=== PATIENT | female | born 1985 | race Caucasian/White ===

== ENCOUNTER 2018-05-10 14:40 | Emergency (ER) | payer OTHER ==
[2018-05-10] MEDS: DIPHENHYDRAMINE 50 MG CAP PO (15:57)
[2018-05-10] MEDS: TRIMETHOPRIM/SULFAMETHOX (DS) TAB PO (15:57)
[2018-05-10] MEDS: CEPHALEXIN 500 MG CAP PO (15:57)
== END 2018-05-10 16:13 | disposition home or self-care (01) ==
LOC: FTE 14:40
DX: L03.115 Cellulitis of right lower limb (principal); L03.116 Cellulitis of left lower limb; J45.909 Unspecified asthma, uncomplicated
CPT/HCPCS: 99284; Z7502

== ENCOUNTER 2018-07-07 22:22 | Emergency (ER) | payer OTHER ==
[2018-07-07] MEDS: SODIUM CHLORIDE 0.9% 1L BAG IV* (23:22)
[2018-07-07] MEDS: ONDANSETRON 4 MG INJ IV (23:23)
[2018-07-07] MEDS: ACETAMINOPHEN 500 MG TAB PO (23:23)
[2018-07-07 23:30] LABS: ADD MAN DIFF? NO
[2018-07-07 23:32] LABS: BASOPHILS % 0.6 % (0.0-2.0); EOSINOPHILS # 0.3 10^3/ul (0.0-0.5); EOSINOPHILS % 4.7 % (0.0-7.0); HEMATOCRIT 31.4 % (37.0-47.0); HEMOGLOBIN 10.1 g/dl (12.0-16.0); LYMPHOCYTES % 13.9 % (15.0-51.0); MEAN CORPUSCULAR HEMOGLOBIN 29.6 pg (29.0-33.0); MEAN CORPUSCULAR HGB CONC 32.2 g/dl (32.0-37.0); MEAN CORPUSCULAR VOLUME 92.1 fl (82.0-101.0); MEAN PLATELET VOLUME 9.7 fl (7.4-10.4); MONOCYTE # 0.4 10^3/ul (0.3-0.9); MONOCYTES % 5.3 % (0.0-11.0); NEUTROPHIL # 5.2 10^3/ul (1.6-7.5); NEUTROPHILS % 75.2 % (39.0-77.0); NUCLEATED RED BLOOD CELLS% 0.3 /100WBC (0.0-0.0); PLATELET COUNT 469 10^3/UL (140-415); RED BLOOD COUNT 3.41 10^6/ul (4.20-5.40); RED CELL DISTRIBUTION WIDTH 15.8 % (11.5-14.5)
[2018-07-07 23:32] LABS: WHITE BLOOD COUNT 6.9 10^3/ul (4.8-10.8)
[2018-07-07 23:51] LABS: ANION GAP 9 (8-16); BLOOD UREA NITROGEN 9 mg/dl (7-20); CALCIUM 8.6 mg/dl (8.4-10.2); CARBON DIOXIDE 25 mmol/L (21-31); CHLORIDE 109 mmol/L (97-110); CREATININE 0.72 mg/dl (0.44-1.00); GLUCOSE 94 mg/dl (70-220); INR 1.04; POTASSIUM 3.4 mmol/L (3.5-5.1); PROTIME 13.7 Sec (11.9-14.9); PT RATIO 1.1; SODIUM 140 mmol/L (135-144)
[2018-07-07 23:52] LABS: PARTIAL THROMBOPLASTIN TIME 32.6 Sec (23.0-35.0)
[2018-07-08 00:03] LABS: TROPONIN-I 0.028 ng/ml (0.000-0.120)
[2018-07-08 00:47] LABS: ADD UMIC YES; UR ASCORBIC ACID NEGATIVE (NEGATIVE); UR BACTERIA FEW /HPF (NONE SEEN); UR BILIRUBIN (Dip) NEGATIVE (NEGATIVE); UR BLOOD (Dip) NEGATIVE (NEGATIVE); UR CLARITY SLIGHTLY CLOUDY (CLEAR); UR COLOR YELLOW (YELLOW); UR GLUCOSE (Dip) NEGATIVE (NEGATIVE); UR KETONES (Dip) NEGATIVE (NEGATIVE); UR LEUKOCYTE ESTERASE (Dip) TRACE Leu/ul (NEGATIVE); UR NITRITE (Dip) NEGATIVE (NEGATIVE); UR RBC 3 /HPF (0-5); UR SPECIFIC GRAVITY (Dip) 1.018 (1.003-1.030); UR SQUAMOUS EPITHELIAL CELL FEW /HPF (FEW); UR TOTAL PROTEIN (Dip) NEGATIVE (NEGATIVE); UR UROBILINOGEN (Dip) 2+ mg/dL (NEGATIVE); UR WBC 10 /HPF (0-5)
[2018-07-08] MEDS: morphine 4 MG/ML VIAL IV (01:06)
[2018-07-08] MEDS: ONDANSETRON 4 MG INJ IV (01:06)
== END 2018-07-08 01:48 | disposition home or self-care (01) ==
LOC: FTE 07-08 01:48
DX: R11.10 Vomiting, unspecified (principal); R50.9 Fever, unspecified; J45.909 Unspecified asthma, uncomplicated; I10 Essential (primary) hypertension; R00.0 Tachycardia, unspecified
CPT/HCPCS: 36415; 71045; 80048; 81001; 83605; 84484; 84703; 85025; 85610; 85730; 87040; 87086; 87400; 93005; 96374; 96375; 96376; 99285-25

== ENCOUNTER 2018-07-10 16:59 | Emergency (ER) | payer OTHER ==
[2018-07-10 18:05] LABS: ADD MAN DIFF? NO
[2018-07-10 18:09] LABS: BASOPHILS % 0.3 % (0.0-2.0); EOSINOPHILS # 0.3 10^3/ul (0.0-0.5); EOSINOPHILS % 2.7 % (0.0-7.0); HEMATOCRIT 35.2 % (37.0-47.0); HEMOGLOBIN 11.6 g/dl (12.0-16.0); LYMPHOCYTES # 0.8 10^3/ul (0.8-2.9); MEAN CORPUSCULAR HEMOGLOBIN 30.1 pg (29.0-33.0); MEAN CORPUSCULAR VOLUME 91.4 fl (82.0-101.0); MEAN PLATELET VOLUME 9.8 fl (7.4-10.4); MONOCYTE # 0.4 10^3/ul (0.3-0.9); MONOCYTES % 3.8 % (0.0-11.0); NEUTROPHIL # 9.4 10^3/ul (1.6-7.5); NEUTROPHILS % 85.9 % (39.0-77.0); NUCLEATED RED BLOOD CELLS% 0.2 /100WBC (0.0-0.0); PLATELET COUNT 459 10^3/UL (140-415); RED BLOOD COUNT 3.85 10^6/ul (4.20-5.40); RED CELL DISTRIBUTION WIDTH 15.9 % (11.5-14.5)
[2018-07-10 18:09] LABS: WHITE BLOOD COUNT 10.9 10^3/ul (4.8-10.8)
[2018-07-10] MEDS: ONDANSETRON 4 MG INJ IV (18:12)
[2018-07-10] MEDS: SOD CHLORIDE 0.9% 1,000 ML IV (18:12)
[2018-07-10] MEDS: KETOROLAC 30 MG INJ IV (18:12)
[2018-07-10] MEDS: ACETAMINOPHEN 325 MG TAB PO (18:12)
[2018-07-10 18:14] LABS: ADD UMIC YES; UR ASCORBIC ACID NEGATIVE (NEGATIVE); UR BACTERIA FEW /HPF (NONE SEEN); UR BILIRUBIN (Dip) NEGATIVE (NEGATIVE); UR BLOOD (Dip) 1+ mg/dL (NEGATIVE); UR CLARITY SLIGHTLY CLOUDY (CLEAR); UR COLOR YELLOW (YELLOW); UR GLUCOSE (Dip) NEGATIVE (NEGATIVE); UR KETONES (Dip) 1+ mg/dL (NEGATIVE); UR LEUKOCYTE ESTERASE (Dip) TRACE Leu/ul (NEGATIVE); UR MUCUS FEW /HPF (NONE SEEN); UR NITRITE (Dip) NEGATIVE (NEGATIVE); UR RBC 6 /HPF (0-5); UR SQUAMOUS EPITHELIAL CELL FEW /HPF (FEW); UR TOTAL PROTEIN (Dip) 1+ mg/dl (NEGATIVE); UR UROBILINOGEN (Dip) NEGATIVE (NEGATIVE); UR WBC 5 /HPF (0-5)
[2018-07-10 18:30] LABS: LACTIC ACID 1.4 mmol/L (0.5-2.0)
[2018-07-10 18:30] LABS: ALANINE AMINOTRANSFERASE 29 IU/L (13-69); ALBUMIN 3.1 g/dl (3.3-4.9); ALBUMIN/GLOBULIN RATIO 0.72; ALKALINE PHOSPHATASE 138 IU/L (42-121); ANION GAP 13 (8-16); ASPARTATE AMINO TRANSFERASE 35 IU/L (15-46); BILIRUBIN,INDIRECT 0.7 mg/dl (0-1.1); BILIRUBIN,TOTAL 0.7 mg/dl (0.2-1.3); BLOOD UREA NITROGEN 10 mg/dl (7-20); CALCIUM 9.4 mg/dl (8.4-10.2); CARBON DIOXIDE 22 mmol/L (21-31); CHLORIDE 110 mmol/L (97-110); CREATININE 0.61 mg/dl (0.44-1.00); GLUCOSE 95 mg/dl (70-220); LIPASE 45 U/L (23-300); POTASSIUM 4.1 mmol/L (3.5-5.1); SODIUM 141 mmol/L (135-144); TOTAL PROTEIN 7.4 g/dl (6.1-8.1)
== END 2018-07-10 19:40 | disposition home or self-care (01) ==
LOC: FTE 16:59
DX: R19.7 Diarrhea, unspecified (principal); R11.2 Nausea with vomiting, unspecified; J45.909 Unspecified asthma, uncomplicated; R50.9 Fever, unspecified
CPT/HCPCS: 36415; 80053; 81001; 81025; 83605; 83690; 85025; 87086; 96361; 96374; 96375; 99284-25

== ENCOUNTER 2018-07-26 20:57 | Emergency (ER) | payer OTHER ==
[2018-07-26] MEDS: KETOROLAC 60 MG INJ IM (22:43)
== END 2018-07-26 23:57 | disposition home or self-care (01) ==
LOC: FTE 23:57
DX: M25.571 Pain in right ankle and joints of right foot (principal); M25.572 Pain in left ankle and joints of left foot; M25.561 Pain in right knee; M25.562 Pain in left knee; J45.909 Unspecified asthma, uncomplicated
CPT/HCPCS: 81025; 96372; 99284-25

== ENCOUNTER 2018-09-17 18:47 | Emergency (ER) | payer OTHER ==
[2018-09-17] MEDS: SOD CHLORIDE 0.9% 1,000 ML IV (20:36)
[2018-09-17] MEDS: ONDANSETRON 4 MG INJ IV (20:36)
[2018-09-17] MEDS: ACETAMINOPHEN 500 MG TAB PO (20:36)
[2018-09-17] MEDS: KETOROLAC 30 MG INJ IV (20:46)
[2018-09-17 20:56] LABS: ADD MAN DIFF? NO
[2018-09-17 20:58] LABS: WHITE BLOOD COUNT 14.3 10^3/ul (4.8-10.8)
[2018-09-17 20:58] LABS: ABNORMAL IP MESSAGE 1; BASOPHIL # 0.1 10^3/ul (0.0-0.1); BASOPHILS % 0.4 % (0.0-2.0); EOSINOPHILS # 0.2 10^3/ul (0.0-0.5); EOSINOPHILS % 1.5 % (0.0-7.0); HEMATOCRIT 32.5 % (37.0-47.0); HEMOGLOBIN 9.5 g/dl (12.0-16.0); LYMPHOCYTES # 1.4 10^3/ul (0.8-2.9); LYMPHOCYTES % 9.9 % (15.0-51.0); MEAN CORPUSCULAR HEMOGLOBIN 25.5 pg (29.0-33.0); MEAN CORPUSCULAR HGB CONC 29.2 g/dl (32.0-37.0); MEAN CORPUSCULAR VOLUME 87.1 fl (82.0-101.0); MEAN PLATELET VOLUME 9.4 fl (7.4-10.4); MONOCYTE # 0.9 10^3/ul (0.3-0.9); MONOCYTES % 6.4 % (0.0-11.0); NEUTROPHIL # 11.6 10^3/ul (1.6-7.5); NEUTROPHILS % 81.4 % (39.0-77.0); NUCLEATED RED BLOOD CELLS% 0.3 /100WBC (0.0-0.0); PLATELET COUNT 531 10^3/UL (140-415); RED BLOOD COUNT 3.73 10^6/ul (4.20-5.40); RED CELL DISTRIBUTION WIDTH 22.4 % (11.5-14.5)
[2018-09-17 21:08] LABS: ADD UMIC YES; UR ASCORBIC ACID NEGATIVE (NEGATIVE); UR BACTERIA FEW /HPF (NONE SEEN); UR BILIRUBIN (Dip) NEGATIVE (NEGATIVE); UR BLOOD (Dip) 1+ mg/dL (NEGATIVE); UR CLARITY SLIGHTLY CLOUDY (CLEAR); UR COLOR YELLOW (YELLOW); UR GLUCOSE (Dip) NEGATIVE (NEGATIVE); UR KETONES (Dip) NEGATIVE (NEGATIVE); UR LEUKOCYTE ESTERASE (Dip) TRACE Leu/ul (NEGATIVE); UR MUCUS MODERATE /HPF (NONE SEEN); UR NITRITE (Dip) NEGATIVE (NEGATIVE); UR RBC 8 /HPF (0-5); UR SPECIFIC GRAVITY (Dip) 1.017 (1.003-1.030); UR SQUAMOUS EPITHELIAL CELL FEW /HPF (FEW); UR TOTAL PROTEIN (Dip) 1+ mg/dl (NEGATIVE); UR UROBILINOGEN (Dip) 1+ mg/dL (NEGATIVE); UR WBC 8 /HPF (0-5)
[2018-09-17 21:11] LABS: POSITIVE DIFF @See below
[2018-09-17 21:18] LABS: LACTIC ACID 1.4 mmol/L (0.5-2.0)
[2018-09-17 21:19] LABS: ALANINE AMINOTRANSFERASE 23 IU/L (13-69); ALBUMIN 3.5 g/dl (3.3-4.9); ALBUMIN/GLOBULIN RATIO 0.85; ALKALINE PHOSPHATASE 112 IU/L (42-121); ANION GAP 9 (5-13); ASPARTATE AMINO TRANSFERASE 27 IU/L (15-46); BLOOD UREA NITROGEN 8 mg/dl (7-20); CALCIUM 9.3 mg/dl (8.4-10.2); CARBON DIOXIDE 24 mmol/L (21-31); CHLORIDE 105 mmol/L (97-110); CREATININE 0.64 mg/dl (0.44-1.00); Estimated GFR > 60 mL/min (>60); GLUCOSE 106 mg/dl (70-220); LIPASE 26 U/L (23-300); POTASSIUM 4.1 mmol/L (3.5-5.1); SODIUM 138 mmol/L (135-144); TOTAL PROTEIN 7.6 g/dl (6.1-8.1)
[2018-09-17] MEDS: morphine 4 MG/ML VIAL IV (22:17)
[2018-09-17] MEDS: DEXAMETHASONE 10 MG/ML 1 ML INJ IV (22:43)
[2018-09-17] MEDS: DEXAMETHASONE 10 MG/ML 1 ML INJ IM (22:55)
== END 2018-09-17 23:07 | disposition home or self-care (01) ==
LOC: FTE 18:47
DX: B34.9 Viral infection, unspecified (principal); J45.909 Unspecified asthma, uncomplicated
CPT/HCPCS: 36415; 80053; 81001; 81025; 83605; 83690; 85025; 87400; 96361; 96374; 96375; 99284-25

== ENCOUNTER 2018-11-23 14:22 | Emergency (ER) | payer OTHER ==
[2018-11-23] MEDS: ALBUTEROL 0.083% (NEB) 2.5 MG/3 ML AMP HHN ×2 (15:08→16:21)
[2018-11-23] MEDS: predniSONE 20 MG TAB PO (15:29)
[2018-11-23] MEDS: IPRATROPIUM (NEB) 0.5 MG/2.5 ML AMP HHN (16:21)
== END 2018-11-23 16:43 | disposition home or self-care (01) ==
LOC: FTE 14:22
DX: J45.901 Unspecified asthma with (acute) exacerbation (principal)
CPT/HCPCS: 71045; 94640; 94664; 99284-25

== ENCOUNTER 2018-12-29 02:46 | Inpatient (IN) | payer OTHER ==
[2018-12-29] MEDS: ONDANSETRON 4 MG INJ IV ×3 (04:01→18:56)
[2018-12-29] MEDS: KETOROLAC 15 MG INJ IV (04:01)
[2018-12-29] MEDS: SOD CHLORIDE 0.9% 1,000 ML IV (04:03)
[2018-12-29] MEDS: ACETAMINOPHEN 325 MG TAB PO ×2 (04:03→13:57)
[2018-12-29] MEDS: FAMOTIDINE 20 MG INJ IV (04:16)
[2018-12-29] MEDS: morphine 4 MG/ML VIAL IV ×2 (04:17→09:11)
[2018-12-29 05:10] LABS: ALANINE AMINOTRANSFERASE 33 IU/L (13-69); ALBUMIN 3.8 g/dl (3.3-4.9); ALBUMIN/GLOBULIN RATIO 1.02; ALKALINE PHOSPHATASE 127 IU/L (42-121); ANION GAP 13 (5-13); ASPARTATE AMINO TRANSFERASE 37 IU/L (15-46); BILIRUBIN,INDIRECT 0.6 mg/dl (0-1.1); BILIRUBIN,TOTAL 0.6 mg/dl (0.2-1.3); BLOOD UREA NITROGEN 13 mg/dl (7-20); CALCIUM 8.7 mg/dl (8.4-10.2); CARBON DIOXIDE 24 mmol/L (21-31); CHLORIDE 109 mmol/L (97-110); CREATININE 0.65 mg/dl (0.44-1.00); Estimated GFR > 60 mL/min (>60); GLUCOSE 121 mg/dl (70-220); LIPASE 57 U/L (23-300); POTASSIUM 3.2 mmol/L (3.5-5.1); SODIUM 146 mmol/L (135-144); TOTAL PROTEIN 7.5 g/dl (6.1-8.1)
[2018-12-29 05:13] LABS: WHITE BLOOD COUNT 19.3 10^3/ul (4.8-10.8)
[2018-12-29 05:13] LABS: ABNORMAL IP MESSAGE 1; HEMATOCRIT 39.3 % (37.0-47.0); MEAN CORPUSCULAR HEMOGLOBIN 29.1 pg (29.0-33.0); MEAN CORPUSCULAR HGB CONC 30.5 g/dl (32.0-37.0); MEAN CORPUSCULAR VOLUME 95.2 fl (82.0-101.0); MEAN PLATELET VOLUME 10.3 fl (7.4-10.4); NUCLEATED RED BLOOD CELLS% 0.2 /100WBC (0.0-0.0); PLATELET COUNT 391 10^3/UL (140-415); POSITIVE DIFF @See below; RED BLOOD COUNT 4.13 10^6/ul (4.20-5.40)
[2018-12-29] MEDS: IOHEXOL 300MG/ML 150 ML BTL (05:23)
[2018-12-29] MEDS: SOD CHLORIDE 0.9% 100 ML (05:23)
[2018-12-29 06:59] LABS: BASOPHILS % 0.4 % (0.0-2.0); EOSINOPHILS % 1.5 % (0.0-7.0); LYMPHOCYTES % 4.1 % (15.0-51.0); MONOCYTES % 6.5 % (0.0-11.0); NEUTROPHILS % 86.8 % (39.0-77.0)
[2018-12-29 07:00] LABS: ADD MAN DIFF? NO
[2018-12-29] MEDS: CIPROFLOXACIN 400MG/D5W 200 ML IVPB (08:27)
[2018-12-29] MEDS ORDERED: ONDANSETRON 4 MG INJ IV (09:00)
[2018-12-29] MEDS ORDERED: ACETAMINOPHEN 325 MG TAB PO (09:00)
[2018-12-29] MEDS ORDERED: SOD CHLORIDE 0.9% 1,000 ML IV (09:07)
[2018-12-29] MEDS ORDERED: NACL 0.9% 3 ML SYG IV (09:30)
[2018-12-29] MEDS ORDERED: metroNIDAZOLE 500 MG/NS (PMX) 100 ML IVPB (09:30)
[2018-12-29] MEDS: metroNIDAZOLE 500 MG/NS (PMX) 100 ML IVPB (10:09)
[2018-12-29 10:29] LABS: ACANTHOCYTES 1+ (0-0); ANISOCYTOSIS 1+ (0-0); BAND NEUTROPHILS #M 2.7 10^3/ul (0.0-0.6); BAND NEUTROPHILS % (M) 14 % (0-4); BURR CELLS 2+ (0-0); EOSINOPHILS % (M) 5 % (0-7); ERYTHROBLAST% (NRBC) (M) 1 % (0-0); GIANT THROMBO% (M) 6 % (0-0); HYPOCHROMASIA 1+ (0-0); LYMPHOCYTES #M 0.5 10^3/ul (0.8-2.9); LYMPHOCYTES % (M) 3 % (15-51); MONOCYTE #M 1.3 10^3/ul (0.3-0.9); MONOCYTES % (M) 7 % (0-11); OVALOCYTES 1+ (0-0); PLATELET ESTIMATE NORMAL; POIKILOCYTOSIS 2+ (0-0); POLYCHROMASIA 3+ (0-0); SEG NEUT #M 14.2 10^3/ul (1.6-7.5); SEGMENTED NEUTROPHILS (M) % 71 % (39-77); SMUDGE%M 3 % (0-0); TARGET CELLS 1+ (0-0)
[2018-12-29] MEDS: METHYLPREDNISOLONE 40 MG INJ IV (11:48)
[2018-12-29 11:49] LABS: LACTIC ACID 1.7 mmol/L (0.5-2.0)
[2018-12-29] MEDS: PIPER-TAZO 3.375 GM IV (PMX) 100 ML IVPB ×3 (13:36→23:23)
[2018-12-29] MEDS: NS + KCL 20 MEQ 1,000 ML IV ×2 (13:36→19:30)
[2018-12-29 15:07] LABS: HEPATITIS B SURFACE ANTIGEN NEGATIVE (NEGATIVE)
[2018-12-29 15:25] LABS: HEPATITIS B CORE ANTIBODY NEGATIVE (NEGATIVE)
[2018-12-29 15:25] LABS: HEPATITIS B SURFACE ANTIBODY NEGATIVE (NEGATIVE)
[2018-12-29] MEDS: morphine 2 MG INJ IV ×2 (17:46→23:28)
[2018-12-29] MEDS: HYDROCODONE/APAP (5/325) TAB PO (18:57)
[2018-12-29] MEDS ORDERED: CIPROFLOXACIN 400MG/D5W 200 ML IVPB (21:00)
[2018-12-30] MEDS ORDERED: PANTOPRAZOLE 40 MG INJ (04:19)
[2018-12-30] MEDS: PANTOPRAZOLE 40 MG INJ IV (05:23)
[2018-12-30] MEDS: NS + KCL 20 MEQ 1,000 ML IV ×2 (05:23→16:05)
[2018-12-30] MEDS: PIPER-TAZO 3.375 GM IV (PMX) 100 ML IVPB ×4 (05:23→23:40)
[2018-12-30 06:20] LABS: ADD MAN DIFF? NO
[2018-12-30 06:25] LABS: ABNORMAL IP MESSAGE 1; BASOPHILS % 0.3 % (0.0-2.0); EOSINOPHILS % 0.5 % (0.0-7.0); HEMATOCRIT 32.9 % (37.0-47.0); HEMOGLOBIN 10.1 g/dl (12.0-16.0); LYMPHOCYTES # 0.9 10^3/ul (0.8-2.9); LYMPHOCYTES % 10.4 % (15.0-51.0); MEAN CORPUSCULAR HEMOGLOBIN 29.1 pg (29.0-33.0); MEAN CORPUSCULAR HGB CONC 30.7 g/dl (32.0-37.0); MEAN CORPUSCULAR VOLUME 94.8 fl (82.0-101.0); MEAN PLATELET VOLUME 10.1 fl (7.4-10.4); MONOCYTE # 0.8 10^3/ul (0.3-0.9); NEUTROPHIL # 6.9 10^3/ul (1.6-7.5); NEUTROPHILS % 79.3 % (39.0-77.0); NUCLEATED RED BLOOD CELLS% 0.3 /100WBC (0.0-0.0); PLATELET COUNT 347 10^3/UL (140-415); RED BLOOD COUNT 3.47 10^6/ul (4.20-5.40)
[2018-12-30 06:25] LABS: WHITE BLOOD COUNT 8.7 10^3/ul (4.8-10.8)
[2018-12-30 06:28] LABS: POSITIVE DIFF @See below
[2018-12-30 06:47] LABS: ALANINE AMINOTRANSFERASE 27 IU/L (13-69); ALBUMIN/GLOBULIN RATIO 0.93; ALKALINE PHOSPHATASE 83 IU/L (42-121); ANION GAP 7 (5-13); ASPARTATE AMINO TRANSFERASE 24 IU/L (15-46); BILIRUBIN,INDIRECT 0.4 mg/dl (0-1.1); BILIRUBIN,TOTAL 0.4 mg/dl (0.2-1.3); BLOOD UREA NITROGEN 12 mg/dl (7-20); CALCIUM 8.5 mg/dl (8.4-10.2); CARBON DIOXIDE 21 mmol/L (21-31); CHLORIDE 113 mmol/L (97-110); CHOL/HDL RATIO 2.8 RATIO; CHOLESTEROL 111 mg/dl (100-200); CREATININE 0.55 mg/dl (0.44-1.00); Estimated GFR > 60 mL/min (>60); GLUCOSE 85 mg/dl (70-220); HDL CHOLESTEROL 39 mg/dl (34-82); LDL CHOLESTEROL,CALCULATED 61 mg/dl; POTASSIUM 3.6 mmol/L (3.5-5.1); SODIUM 141 mmol/L (135-144); TOTAL PROTEIN 6.2 g/dl (6.1-8.1); TRIGLYCERIDES 57 mg/dl (0-149)
[2018-12-30 07:10] LABS: HEMOGLOBIN A1C 4.8 % (0-5.9)
[2018-12-30] MEDS: METHYLPREDNISOLONE 40 MG INJ IV (09:38)
[2018-12-30 10:51] LABS: MITOCHONDRIAL TB NEGATIVE (NEGATIVE); SMOOTH MUSCLE AB SCREEN NEGATIVE (NEGATIVE)
[2018-12-30] MEDS: morphine 2 MG INJ IV (10:56)
[2018-12-30] MEDS: HYDROCODONE/APAP (5/325) TAB PO (12:05)
[2018-12-30] MEDS: morphine 4 MG/ML VIAL IV ×2 (14:38→20:19)
[2018-12-30 16:04] LABS: LIPASE 11 U/L (23-300)
[2018-12-30] MEDS: SUCRALFATE (100 MG/ML) 10ML CUP PO ×2 (17:24→20:19)
[2018-12-30] MEDS: HYOSCYAMINE 0.125 MG TAB PO (17:24)
[2018-12-30] MEDS ORDERED: morphine 4 MG/ML VIAL IV (17:30)
[2018-12-30] MEDS: LIDOCAINE/MYLANTA 40 ML BTL PO (18:59)
[2018-12-31] MEDS: morphine 4 MG/ML VIAL IV ×3 (00:58→12:30)
[2018-12-31] MEDS: HYOSCYAMINE 0.125 MG TAB PO ×4 (00:58→17:29)
[2018-12-31] MEDS: DIPHENHYDRAMINE 50 MG INJ IV (01:25)
[2018-12-31] MEDS: METHYLPREDNISOLONE 40 MG INJ IV ×2 (01:26→08:09)
[2018-12-31 05:14] LABS: ADD MAN DIFF? NO
[2018-12-31 05:19] LABS: WHITE BLOOD COUNT 6.8 10^3/ul (4.8-10.8)
[2018-12-31 05:19] LABS: ABNORMAL IP MESSAGE 1; BASOPHILS % 0.3 % (0.0-2.0); EOSINOPHILS % 0.3 % (0.0-7.0); HEMATOCRIT 34.8 % (37.0-47.0); HEMOGLOBIN 10.7 g/dl (12.0-16.0); LYMPHOCYTES # 0.5 10^3/ul (0.8-2.9); LYMPHOCYTES % 6.6 % (15.0-51.0); MEAN CORPUSCULAR HEMOGLOBIN 29.6 pg (29.0-33.0); MEAN CORPUSCULAR HGB CONC 30.7 g/dl (32.0-37.0); MEAN CORPUSCULAR VOLUME 96.1 fl (82.0-101.0); MEAN PLATELET VOLUME 10.4 fl (7.4-10.4); MONOCYTE # 0.4 10^3/ul (0.3-0.9); MONOCYTES % 5.9 % (0.0-11.0); NEUTROPHIL # 5.8 10^3/ul (1.6-7.5); NEUTROPHILS % 85.6 % (39.0-77.0); NUCLEATED RED BLOOD CELLS% 0.4 /100WBC (0.0-0.0); PLATELET COUNT 341 10^3/UL (140-415); RED BLOOD COUNT 3.62 10^6/ul (4.20-5.40)
[2018-12-31] MEDS: PANTOPRAZOLE 40 MG INJ IV (05:40)
[2018-12-31] MEDS: NS + KCL 20 MEQ 1,000 ML IV ×3 (05:40→18:16)
[2018-12-31] MEDS: PIPER-TAZO 3.375 GM IV (PMX) 100 ML IVPB ×4 (05:43→23:59)
[2018-12-31 05:44] LABS: POSITIVE DIFF @See below
[2018-12-31 05:58] LABS: AMYLASE < 30 U/L (11-123)
[2018-12-31 06:01] LABS: ALANINE AMINOTRANSFERASE 28 IU/L (13-69); ALBUMIN 3.4 g/dl (3.3-4.9); ALBUMIN/GLOBULIN RATIO 0.94; ALKALINE PHOSPHATASE 86 IU/L (42-121); ANION GAP 8 (5-13); ASPARTATE AMINO TRANSFERASE 27 IU/L (15-46); BILIRUBIN,INDIRECT 0.3 mg/dl (0-1.1); BILIRUBIN,TOTAL 0.3 mg/dl (0.2-1.3); BLOOD UREA NITROGEN 13 mg/dl (7-20); CALCIUM 9.2 mg/dl (8.4-10.2); CARBON DIOXIDE 24 mmol/L (21-31); CHLORIDE 108 mmol/L (97-110); Estimated GFR > 60 mL/min (>60); GLUCOSE 94 mg/dl (70-220); POTASSIUM 4.5 mmol/L (3.5-5.1); SODIUM 140 mmol/L (135-144)
[2018-12-31] MEDS: SUCRALFATE (100 MG/ML) 10ML CUP PO ×4 (08:09→20:25)
[2018-12-31] MEDS: HYDROmorphONE 0.5 MG/0.5 ML SYG IV ×2 (17:32→22:36)
[2019-01-01] MEDS: HYDROmorphONE 0.5 MG/0.5 ML SYG IV ×4 (04:56→21:09)
[2019-01-01] MEDS: NS + KCL 20 MEQ 1,000 ML IV (04:56)
[2019-01-01 05:37] LABS: ADD MAN DIFF? NO
[2019-01-01 05:48] LABS: ABNORMAL IP MESSAGE 1; BASOPHIL # 0.1 10^3/ul (0.0-0.1); BASOPHILS % 0.6 % (0.0-2.0); EOSINOPHILS # 0.2 10^3/ul (0.0-0.5); EOSINOPHILS % 2.3 % (0.0-7.0); HEMATOCRIT 32.6 % (37.0-47.0); LYMPHOCYTES % 22.1 % (15.0-51.0); MEAN CORPUSCULAR HEMOGLOBIN 29.8 pg (29.0-33.0); MEAN CORPUSCULAR HGB CONC 30.7 g/dl (32.0-37.0); MEAN PLATELET VOLUME 10.5 fl (7.4-10.4); MONOCYTE # 1.2 10^3/ul (0.3-0.9); MONOCYTES % 13.4 % (0.0-11.0); NEUTROPHIL # 5.5 10^3/ul (1.6-7.5); NEUTROPHILS % 61.2 % (39.0-77.0); NUCLEATED RED BLOOD CELLS # 0.1 10^3/ul (0.0-0.0); NUCLEATED RED BLOOD CELLS% 0.6 /100WBC (0.0-0.0); PLATELET COUNT 339 10^3/UL (140-415); RED BLOOD COUNT 3.36 10^6/ul (4.20-5.40)
[2019-01-01] MEDS: PIPER-TAZO 3.375 GM IV (PMX) 100 ML IVPB ×3 (05:48→17:55)
[2019-01-01] MEDS: PANTOPRAZOLE 40 MG INJ IV (05:49)
[2019-01-01] MEDS: HYOSCYAMINE 0.125 MG TAB PO ×4 (05:49→16:49)
[2019-01-01 05:58] LABS: ANION GAP 6 (5-13); BLOOD UREA NITROGEN 8 mg/dl (7-20); CALCIUM 8.6 mg/dl (8.4-10.2); CARBON DIOXIDE 27 mmol/L (21-31); CHLORIDE 107 mmol/L (97-110); CREATININE 0.62 mg/dl (0.44-1.00); Estimated GFR > 60 mL/min (>60); GLUCOSE 84 mg/dl (70-220); PHOSPHORUS 3.1 mg/dl (2.5-4.9); POTASSIUM 3.9 mmol/L (3.5-5.1); SODIUM 140 mmol/L (135-144)
[2019-01-01 06:05] LABS: POSITIVE DIFF @See below
[2019-01-01] MEDS: METHYLPREDNISOLONE 40 MG INJ IV (08:38)
[2019-01-01] MEDS: SUCRALFATE (100 MG/ML) 10ML CUP PO ×4 (08:38→20:47)
[2019-01-01] MEDS: ONDANSETRON 4 MG INJ IV (09:59)
[2019-01-01] MEDS: SOD CHLORIDE 0.45% 1,000 ML IV (12:12)
[2019-01-01] MEDS: BISACODYL (EC) 5 MG TAB PO ×2 (16:49→21:06)
[2019-01-01] MEDS: MAGNESIUM CITRATE 300 ML BTL PO (17:54)
[2019-01-01] MEDS: POLYETHYLENE GLYCOL 3350 119 GM POWDER PO ×2 (17:54→19:00)
[2019-01-01] MEDS: HYDROCODONE/APAP (5/325) TAB PO (22:50)
[2019-01-02] MEDS: PIPER-TAZO 3.375 GM IV (PMX) 100 ML IVPB ×5 (00:56→23:54)
[2019-01-02] MEDS: HYDROmorphONE 0.5 MG/0.5 ML SYG IV ×4 (02:34→23:56)
[2019-01-02 05:47] LABS: ADD MAN DIFF? NO
[2019-01-02 05:53] LABS: ABNORMAL IP MESSAGE 1; BASOPHIL # 0.1 10^3/ul (0.0-0.1); BASOPHILS % 0.6 % (0.0-2.0); EOSINOPHILS # 0.5 10^3/ul (0.0-0.5); EOSINOPHILS % 5.3 % (0.0-7.0); HEMATOCRIT 33.6 % (37.0-47.0); HEMOGLOBIN 10.5 g/dl (12.0-16.0); LYMPHOCYTES # 2.4 10^3/ul (0.8-2.9); LYMPHOCYTES % 26.1 % (15.0-51.0); MEAN CORPUSCULAR HEMOGLOBIN 29.7 pg (29.0-33.0); MEAN CORPUSCULAR HGB CONC 31.3 g/dl (32.0-37.0); MEAN CORPUSCULAR VOLUME 95.2 fl (82.0-101.0); MEAN PLATELET VOLUME 10.5 fl (7.4-10.4); MONOCYTE # 1.2 10^3/ul (0.3-0.9); MONOCYTES % 13.3 % (0.0-11.0); NEUTROPHIL # 4.9 10^3/ul (1.6-7.5); NEUTROPHILS % 54.3 % (39.0-77.0); NUCLEATED RED BLOOD CELLS # 0.1 10^3/ul (0.0-0.0); NUCLEATED RED BLOOD CELLS% 0.6 /100WBC (0.0-0.0); PLATELET COUNT 362 10^3/UL (140-415); RED BLOOD COUNT 3.53 10^6/ul (4.20-5.40)
[2019-01-02 06:05] LABS: POSITIVE DIFF @See below
[2019-01-02] MEDS: PANTOPRAZOLE 40 MG INJ IV (06:08)
[2019-01-02] MEDS: HYOSCYAMINE 0.125 MG TAB PO ×5 (06:08→23:54)
[2019-01-02 06:28] LABS: ANION GAP 7 (5-13); BLOOD UREA NITROGEN 8 mg/dl (7-20); CALCIUM 8.5 mg/dl (8.4-10.2); CARBON DIOXIDE 25 mmol/L (21-31); CHLORIDE 108 mmol/L (97-110); CREATININE 0.57 mg/dl (0.44-1.00); Estimated GFR > 60 mL/min (>60); GLUCOSE 75 mg/dl (70-220); MAGNESIUM 2.1 mg/dl (1.7-2.5); PHOSPHORUS 3.9 mg/dl (2.5-4.9); POTASSIUM 3.5 mmol/L (3.5-5.1); SODIUM 140 mmol/L (135-144)
[2019-01-02] MEDS: SOD CHLORIDE 0.45% 1,000 ML IV ×2 (06:30→09:21)
[2019-01-02] MEDS: SUCRALFATE (100 MG/ML) 10ML CUP PO ×4 (09:00→20:40)
[2019-01-02] MEDS: METHYLPREDNISOLONE 40 MG INJ IV (09:20)
[2019-01-02] MEDS ORDERED: LABETALOL HCL 20MG INJ IV (15:30)
[2019-01-02] MEDS ORDERED: hydrALAzine 20 MG INJ IV (15:30)
[2019-01-02] MEDS ORDERED: FENTAnyl 50 MCG/ML VIAL IV ×2 (15:30)
[2019-01-02] MEDS ORDERED: METOCLOPRAMIDE 10 MG INJ IV (15:30)
[2019-01-02] MEDS ORDERED: ONDANSETRON 4 MG INJ IV (15:30)
[2019-01-02] MEDS ORDERED: HYDROmorphONE 1 MG/5 ML IV SYRINGE IV ×2 (15:30)
[2019-01-02] MEDS ORDERED: EPHEDrine SULFATE 50 MG/5 ML SYG IV (15:30)
[2019-01-02] MEDS ORDERED: OXYCODONE/ACETAMINOPHEN (5/325) TAB PO (15:30)
[2019-01-02] MEDS ORDERED: PROPOFOL 40 ML (15:58)
[2019-01-02] MEDS ORDERED: PROPOFOL 20 ML (16:24)
[2019-01-02] MEDS: HYDROCODONE/APAP (5/325) TAB PO (21:13)
[2019-01-03] MEDS: ONDANSETRON 4 MG INJ IV ×2 (00:04→16:00)
[2019-01-03] MEDS: PANTOPRAZOLE 40 MG INJ IV ×2 (05:22→17:23)
[2019-01-03] MEDS: PIPER-TAZO 3.375 GM IV (PMX) 100 ML IVPB ×4 (05:22→23:20)
[2019-01-03] MEDS: HYDROmorphONE 0.5 MG/0.5 ML SYG IV ×4 (05:25→21:30)
[2019-01-03] MEDS ORDERED: HYOSCYAMINE 0.125 MG SUBL TAB PO ×4 (05:37→06:00)
[2019-01-03] MEDS ORDERED: HYOSCYAMINE 0.125 MG SUBL TAB SL (05:41)
[2019-01-03] MEDS: HYOSCYAMINE 0.125 MG SUBL TAB PO ×4 (06:20→23:20)
[2019-01-03] MEDS: SUCRALFATE (100 MG/ML) 10ML CUP PO ×4 (08:26→21:30)
[2019-01-03] MEDS: METHYLPREDNISOLONE 40 MG INJ IV (08:26)
[2019-01-03 13:01] LABS: HEPATITIS C VIRAL ANTIBODY NEGATIVE (NEGATIVE)
[2019-01-03] MEDS: SOD CHLORIDE 0.45% 1,000 ML IV (14:32)
[2019-01-03] MEDS: HYDROCODONE/APAP (5/325) TAB PO ×2 (16:01→23:21)
[2019-01-04] MEDS: HYDROmorphONE 0.5 MG/0.5 ML SYG IV ×4 (02:15→18:04)
[2019-01-04] MEDS: PIPER-TAZO 3.375 GM IV (PMX) 100 ML IVPB ×3 (06:18→17:23)
[2019-01-04] MEDS: PANTOPRAZOLE 40 MG INJ IV (06:18)
[2019-01-04] MEDS: HYOSCYAMINE 0.125 MG SUBL TAB PO ×3 (06:18→17:23)
[2019-01-04] MEDS: METHYLPREDNISOLONE 40 MG INJ IV (09:45)
[2019-01-04] MEDS: SUCRALFATE (100 MG/ML) 10ML CUP PO ×4 (09:45→20:58)
[2019-01-04] MEDS: SOD CHLORIDE 0.45% 1,000 ML IV (11:53)
[2019-01-04] MEDS: CALCIUM CARBONATE 500 MG CHEW TAB PO (13:13)
[2019-01-04] MEDS: PANTOPRAZOLE (EC) 40 MG TAB PO (17:23)
[2019-01-04] MEDS: PROPRANOLOL 10 MG TAB PO (20:58)
[2019-01-05] MEDS: PIPER-TAZO 3.375 GM IV (PMX) 100 ML IVPB ×2 (00:10→06:04)
[2019-01-05] MEDS: HYDROmorphONE 0.5 MG/0.5 ML SYG IV ×2 (00:11→06:42)
[2019-01-05] MEDS: HYOSCYAMINE 0.125 MG SUBL TAB PO ×3 (00:17→13:16)
[2019-01-05] MEDS: CALCIUM CARBONATE 500 MG CHEW TAB PO (02:24)
[2019-01-05] MEDS: PANTOPRAZOLE (EC) 40 MG TAB PO (06:04)
[2019-01-05] MEDS: METHYLPREDNISOLONE 40 MG INJ IV (08:42)
[2019-01-05] MEDS: SUCRALFATE (100 MG/ML) 10ML CUP PO ×2 (08:42→13:16)
[2019-01-05] MEDS: PROPRANOLOL 10 MG TAB PO (08:42)
[2019-01-05] MEDS: HYDROCODONE/APAP (5/325) TAB PO (13:16)
== END 2019-01-05 15:00 | disposition home or self-care (01) | DRG 872 ==
LOC: E/R 02:46 → PP2 09:01
PROC: 0DB68ZX Excision of Stomach, Via Natural or Artificial Opening Endoscopic, Diagnostic (ICD-10-PCS; principal; 2019-01-02 14:10)
PROC: 0DBG8ZX Excision of Left Large Intestine, Via Natural or Artificial Opening Endoscopic, Diagnostic (ICD-10-PCS; 2019-01-02 14:10)
PROC: 0DBP8ZX Excision of Rectum, Via Natural or Artificial Opening Endoscopic, Diagnostic (ICD-10-PCS; 2019-01-02 14:10)
PROC: 0DBF8ZX Excision of Right Large Intestine, Via Natural or Artificial Opening Endoscopic, Diagnostic (ICD-10-PCS; 2019-01-02 14:10)
DX: A41.9 Sepsis, unspecified organism (principal); A09 Infectious gastroenteritis and colitis, unspecified; K92.0 Hematemesis; I85.00 Esophageal varices without bleeding; M06.9 Rheumatoid arthritis, unspecified; D64.89 Other specified anemias; Z90.81 Acquired absence of spleen; Z79.52 Long term (current) use of systemic steroids; K76.9 Liver disease, unspecified; I73.00 Raynaud's syndrome without gangrene; E87.8 Other disorders of electrolyte and fluid balance, not elsewhere classified; D72.825 Bandemia; T40.2X5A Adverse effect of other opioids, initial encounter; Y92.239 Unspecified place in hospital as the place of occurrence of the external cause; M32.9 Systemic lupus erythematosus, unspecified; K29.70 Gastritis, unspecified, without bleeding; K64.8 Other hemorrhoids; K74.60 Unspecified cirrhosis of liver; R93.5 Abnormal findings on diagnostic imaging of other abdominal regions, including retroperitoneum
CPT/HCPCS: 36415; 74177; 80048; 80053; 80061; 82150; 83036; 83605; 83690; 83735; 84100; 84703; 85025; 86038; 86255; 86674; 86704; 86706; 86803; 87040-91; 87045; 87075; 87177; 87338; 87340; 88305; 88312; 96374; 96375; 96376; 99285-25

== ENCOUNTER 2019-01-19 23:24 | Emergency (ER) | payer OTHER | END 2019-01-20 06:30 | disposition home or self-care (01) | LOC: FTE 23:24 | DX: B35.1 Tinea unguium (principal); J45.909 Unspecified asthma, uncomplicated; Z79.82 Long term (current) use of aspirin | CPT/HCPCS: 73140; 99283-25 ==

== ENCOUNTER 2019-02-13 00:13 | Emergency (ER) | payer OTHER ==
[2019-02-13 02:36] LABS: ADD MAN DIFF? NO
[2019-02-13 02:37] LABS: WHITE BLOOD COUNT 9.7 10^3/ul (4.8-10.8)
[2019-02-13 02:37] LABS: BASOPHIL # 0.1 10^3/ul (0.0-0.1); BASOPHILS % 0.6 % (0.0-2.0); EOSINOPHILS # 0.9 10^3/ul (0.0-0.5); EOSINOPHILS % 8.7 % (0.0-7.0); HEMATOCRIT 32.9 % (37.0-47.0); HEMOGLOBIN 10.4 g/dl (12.0-16.0); LYMPHOCYTES # 0.7 10^3/ul (0.8-2.9); LYMPHOCYTES % 6.9 % (15.0-51.0); MEAN CORPUSCULAR HEMOGLOBIN 28.7 pg (29.0-33.0); MEAN CORPUSCULAR HGB CONC 31.6 g/dl (32.0-37.0); MEAN CORPUSCULAR VOLUME 90.9 fl (82.0-101.0); MEAN PLATELET VOLUME 9.2 fl (7.4-10.4); MONOCYTE # 0.8 10^3/ul (0.3-0.9); MONOCYTES % 8.4 % (0.0-11.0); NEUTROPHIL # 7.3 10^3/ul (1.6-7.5); NUCLEATED RED BLOOD CELLS% 0.2 /100WBC (0.0-0.0); PLATELET COUNT 416 10^3/UL (140-415); RED BLOOD COUNT 3.62 10^6/ul (4.20-5.40); RED CELL DISTRIBUTION WIDTH 16.4 % (11.5-14.5)
[2019-02-13 02:58] LABS: ALANINE AMINOTRANSFERASE 28 IU/L (13-69); ALBUMIN 3.5 g/dl (3.3-4.9); ALBUMIN/GLOBULIN RATIO 0.92; ALKALINE PHOSPHATASE 126 IU/L (42-121); ANION GAP 7 (5-13); ASPARTATE AMINO TRANSFERASE 25 IU/L (15-46); BILIRUBIN,INDIRECT 0.3 mg/dl (0-1.1); BILIRUBIN,TOTAL 0.3 mg/dl (0.2-1.3); BLOOD UREA NITROGEN 9 mg/dl (7-20); C-REACTIVE PROTEIN 0.8 mg/dl (0.0-0.9); CALCIUM 8.6 mg/dl (8.4-10.2); CARBON DIOXIDE 22 mmol/L (21-31); CHLORIDE 113 mmol/L (97-110); CREATININE 0.58 mg/dl (0.44-1.00); Estimated GFR > 60 mL/min (>60); GLUCOSE 161 mg/dl (70-220); POTASSIUM 3.6 mmol/L (3.5-5.1); SODIUM 142 mmol/L (135-144); TOTAL PROTEIN 7.3 g/dl (6.1-8.1)
[2019-02-13] MEDS: morphine 4 MG/ML VIAL IV (02:59)
[2019-02-13] MEDS: CEFTRIAXONE 1 GM/50 ML (PMX) 50 ML IVPB (02:59)
[2019-02-13] MEDS: ONDANSETRON 4 MG INJ IV (02:59)
[2019-02-13] MEDS: DIPHENHYDRAMINE 50 MG INJ IV (04:02)
== END 2019-02-13 05:11 | disposition home or self-care (01) ==
LOC: FTE 00:13
DX: L08.9 Local infection of the skin and subcutaneous tissue, unspecified (principal); J45.909 Unspecified asthma, uncomplicated; Z79.82 Long term (current) use of aspirin
CPT/HCPCS: 73140; 80053; 85025; 86140; 87040-91; 96374; 96375; 99284-25

== ENCOUNTER 2019-02-20 14:55 | Inpatient (IN) | payer OTHER ==
[2019-02-20 17:02] LABS: ADD MAN DIFF? NO
[2019-02-20 17:06] LABS: BASOPHIL # 0.1 10^3/ul (0.0-0.1); BASOPHILS % 0.6 % (0.0-2.0); EOSINOPHILS # 0.4 10^3/ul (0.0-0.5); EOSINOPHILS % 3.9 % (0.0-7.0); HEMATOCRIT 25.8 % (37.0-47.0); HEMOGLOBIN 7.9 g/dl (12.0-16.0); LYMPHOCYTES # 1.3 10^3/ul (0.8-2.9); MEAN CORPUSCULAR HEMOGLOBIN 27.7 pg (29.0-33.0); MEAN CORPUSCULAR HGB CONC 30.6 g/dl (32.0-37.0); MEAN CORPUSCULAR VOLUME 90.5 fl (82.0-101.0); MEAN PLATELET VOLUME 9.4 fl (7.4-10.4); MONOCYTE # 1.3 10^3/ul (0.3-0.9); MONOCYTES % 13.7 % (0.0-11.0); NEUTROPHIL # 6.3 10^3/ul (1.6-7.5); NEUTROPHILS % 67.5 % (39.0-77.0); NUCLEATED RED BLOOD CELLS # 0.1 10^3/ul (0.0-0.0); NUCLEATED RED BLOOD CELLS% 0.8 /100WBC (0.0-0.0); PLATELET COUNT 434 10^3/UL (140-415); RED BLOOD COUNT 2.85 10^6/ul (4.20-5.40); RED CELL DISTRIBUTION WIDTH 15.5 % (11.5-14.5)
[2019-02-20 17:06] LABS: WHITE BLOOD COUNT 9.3 10^3/ul (4.8-10.8)
[2019-02-20] MEDS: ONDANSETRON 4 MG INJ IV ×2 (17:08→23:57)
[2019-02-20] MEDS: SOD CHLORIDE 0.9% 1,000 ML IV (17:08)
[2019-02-20] MEDS: PANTOPRAZOLE 40 MG INJ IV (17:08)
[2019-02-20 17:24] LABS: ALANINE AMINOTRANSFERASE 27 IU/L (13-69); ALBUMIN 3.4 g/dl (3.3-4.9); ALKALINE PHOSPHATASE 100 IU/L (42-121); ANION GAP 6 (5-13); ASPARTATE AMINO TRANSFERASE 27 IU/L (15-46); BILIRUBIN,INDIRECT 0.4 mg/dl (0-1.1); BILIRUBIN,TOTAL 0.4 mg/dl (0.2-1.3); BLOOD UREA NITROGEN 22 mg/dl (7-20); CALCIUM 8.7 mg/dl (8.4-10.2); CARBON DIOXIDE 23 mmol/L (21-31); CHLORIDE 111 mmol/L (97-110); CREATININE 0.66 mg/dl (0.44-1.00); Estimated GFR > 60 mL/min (>60); GLUCOSE 94 mg/dl (70-220); POTASSIUM 4.1 mmol/L (3.5-5.1); SODIUM 140 mmol/L (135-144); TOTAL PROTEIN 6.8 g/dl (6.1-8.1)
[2019-02-20 17:26] LABS: INR 1.12; PARTIAL THROMBOPLASTIN TIME 27.2 Sec (23.0-35.0); PROTIME 14.5 Sec (11.9-14.9); PT RATIO 1.1
[2019-02-20 17:35] LABS: TROPONIN-I < 0.012 ng/ml (0.000-0.120)
[2019-02-20 18:20] LABS: IMMEDIATE SPIN CROSSMATCH 1 2
[2019-02-20] MEDS: SOD CHLORIDE 0.9% 0 ML IV (18:39)
[2019-02-20] MEDS ORDERED: ONDANSETRON 4 MG INJ IV (19:00)
[2019-02-20] MEDS ORDERED: ACETAMINOPHEN 325 MG TAB PO (19:00)
[2019-02-20] MEDS ORDERED: ALBUTEROL/IPRATROPIUM (NEB) 3 ML AMP HHN (22:30)
[2019-02-20] MEDS ORDERED: NACL 0.9% 3 ML SYG IV (22:30)
[2019-02-20] MEDS: TRIMETHOPRIM/SULFAMETHOX (DS) TAB PO (23:58)
[2019-02-21] MEDS: SUCRALFATE 1 GM TAB PO ×4 (00:19→18:38)
[2019-02-21] MEDS: OXYCODONE/ACETAMINOPHEN (5/325) TAB PO ×2 (04:15→11:46)
[2019-02-21] MEDS: PANTOPRAZOLE 40 MG INJ IV ×2 (05:33→19:54)
[2019-02-21 07:19] LABS: ADD MAN DIFF? NO
[2019-02-21 07:22] LABS: BASOPHIL # 0.1 10^3/ul (0.0-0.1); EOSINOPHILS # 1.2 10^3/ul (0.0-0.5); EOSINOPHILS % 15.1 % (0.0-7.0); HEMATOCRIT 28.5 % (37.0-47.0); LYMPHOCYTES # 1.6 10^3/ul (0.8-2.9); LYMPHOCYTES % 20.7 % (15.0-51.0); MEAN CORPUSCULAR HEMOGLOBIN 28.2 pg (29.0-33.0); MEAN CORPUSCULAR HGB CONC 31.6 g/dl (32.0-37.0); MEAN CORPUSCULAR VOLUME 89.3 fl (82.0-101.0); MEAN PLATELET VOLUME 9.6 fl (7.4-10.4); MONOCYTE # 1.5 10^3/ul (0.3-0.9); MONOCYTES % 18.9 % (0.0-11.0); NEUTROPHIL # 3.4 10^3/ul (1.6-7.5); NUCLEATED RED BLOOD CELLS # 0.1 10^3/ul (0.0-0.0); NUCLEATED RED BLOOD CELLS% 0.8 /100WBC (0.0-0.0); PLATELET COUNT 407 10^3/UL (140-415); RED BLOOD COUNT 3.19 10^6/ul (4.20-5.40); RED CELL DISTRIBUTION WIDTH 15.1 % (11.5-14.5)
[2019-02-21 07:22] LABS: WHITE BLOOD COUNT 7.8 10^3/ul (4.8-10.8)
[2019-02-21 07:53] LABS: ALANINE AMINOTRANSFERASE 32 IU/L (13-69); ALBUMIN 2.8 g/dl (3.3-4.9); ALBUMIN/GLOBULIN RATIO 0.87; ALKALINE PHOSPHATASE 92 IU/L (42-121); ANION GAP 5 (5-13); ASPARTATE AMINO TRANSFERASE 27 IU/L (15-46); BILIRUBIN,INDIRECT 0.9 mg/dl (0-1.1); BILIRUBIN,TOTAL 0.9 mg/dl (0.2-1.3); BLOOD UREA NITROGEN 16 mg/dl (7-20); CALCIUM 8.3 mg/dl (8.4-10.2); CARBON DIOXIDE 23 mmol/L (21-31); CHLORIDE 113 mmol/L (97-110); CREATININE 0.68 mg/dl (0.44-1.00); Estimated GFR > 60 mL/min (>60); GLUCOSE 75 mg/dl (70-220); POTASSIUM 3.8 mmol/L (3.5-5.1); SODIUM 141 mmol/L (135-144)
[2019-02-21] MEDS: TRIMETHOPRIM/SULFAMETHOX (DS) TAB PO ×2 (08:48→19:54)
[2019-02-21] MEDS: predniSONE 5 MG TAB PO (08:48)
[2019-02-21] MEDS: AMLODIPINE 5 MG TAB PO (08:48)
[2019-02-21] MEDS: AZATHIOPRINE 50 MG TAB PO (09:57)
[2019-02-21] MEDS: METOCLOPRAMIDE 10 MG INJ IV (19:54)
[2019-02-22] MEDS: SUCRALFATE 1 GM TAB PO ×4 (00:27→17:43)
[2019-02-22] MEDS: METOCLOPRAMIDE 10 MG INJ IV ×4 (00:28→17:43)
[2019-02-22] MEDS: PANTOPRAZOLE 40 MG INJ IV ×2 (05:35→17:43)
[2019-02-22 07:30] LABS: ADD MAN DIFF? NO
[2019-02-22 07:33] LABS: WHITE BLOOD COUNT 6.2 10^3/ul (4.8-10.8)
[2019-02-22 07:33] LABS: BASOPHIL # 0.1 10^3/ul (0.0-0.1); BASOPHILS % 0.8 % (0.0-2.0); EOSINOPHILS # 0.9 10^3/ul (0.0-0.5); HEMATOCRIT 27.9 % (37.0-47.0); HEMOGLOBIN 8.9 g/dl (12.0-16.0); LYMPHOCYTES # 0.9 10^3/ul (0.8-2.9); MEAN CORPUSCULAR HEMOGLOBIN 28.3 pg (29.0-33.0); MEAN CORPUSCULAR HGB CONC 31.9 g/dl (32.0-37.0); MEAN CORPUSCULAR VOLUME 88.6 fl (82.0-101.0); MEAN PLATELET VOLUME 9.4 fl (7.4-10.4); MONOCYTES % 16.9 % (0.0-11.0); NEUTROPHIL # 3.3 10^3/ul (1.6-7.5); NUCLEATED RED BLOOD CELLS # 0.1 10^3/ul (0.0-0.0); NUCLEATED RED BLOOD CELLS% 1.5 /100WBC (0.0-0.0); PLATELET COUNT 413 10^3/UL (140-415); RED BLOOD COUNT 3.15 10^6/ul (4.20-5.40); RED CELL DISTRIBUTION WIDTH 15.1 % (11.5-14.5)
[2019-02-22 07:57] LABS: LIPASE 49 U/L (23-300); MAGNESIUM 1.9 mg/dl (1.7-2.5)
[2019-02-22 07:57] LABS: PHOSPHORUS 4.4 mg/dl (2.5-4.9)
[2019-02-22 07:58] LABS: ALANINE AMINOTRANSFERASE 35 IU/L (13-69); ALBUMIN 2.7 g/dl (3.3-4.9); ALBUMIN/GLOBULIN RATIO 0.79; ALKALINE PHOSPHATASE 89 IU/L (42-121); ANION GAP 7 (5-13); ASPARTATE AMINO TRANSFERASE 23 IU/L (15-46); BILIRUBIN,INDIRECT 0.8 mg/dl (0-1.1); BILIRUBIN,TOTAL 0.8 mg/dl (0.2-1.3); BLOOD UREA NITROGEN 10 mg/dl (7-20); CARBON DIOXIDE 22 mmol/L (21-31); CHLORIDE 109 mmol/L (97-110); Estimated GFR > 60 mL/min (>60); GLUCOSE 74 mg/dl (70-220); POTASSIUM 3.4 mmol/L (3.5-5.1); SODIUM 138 mmol/L (135-144); TOTAL PROTEIN 6.1 g/dl (6.1-8.1)
[2019-02-22] MEDS: TRIMETHOPRIM/SULFAMETHOX (DS) TAB PO ×2 (08:57→21:12)
[2019-02-22] MEDS: AZATHIOPRINE 50 MG TAB PO (08:57)
[2019-02-22] MEDS: OXYCODONE/ACETAMINOPHEN (5/325) TAB PO ×2 (09:01→15:10)
[2019-02-22] MEDS ORDERED: POTASSIUM CHLORIDE 100 ML IVPB (13:30)
[2019-02-22] MEDS: NADOLOL 40 MG TAB PO ×2 (14:09→21:18)
[2019-02-22 16:09] LABS: OCCULT BLOOD STOOL POSITIVE (NEGATIVE)
[2019-02-22] MEDS: ACETAMINOPHEN 325 MG TAB PO (21:13)
[2019-02-22] MEDS: LIDOCAINE 100 MG SYRINGE (23:56)
[2019-02-22] MEDS: PROPOFOL 40 ML (23:56)
[2019-02-22] MEDS: FENTAnyl 50 MCG/ML VIAL (23:57)
[2019-02-23] MEDS: SUCRALFATE 1 GM TAB PO ×3 (00:27→11:29)
[2019-02-23] MEDS: METOCLOPRAMIDE 10 MG INJ IV ×3 (00:27→11:29)
[2019-02-23] MEDS: PANTOPRAZOLE 40 MG INJ IV (05:23)
[2019-02-23 06:08] LABS: ADD MAN DIFF? NO
[2019-02-23 06:10] LABS: WHITE BLOOD COUNT 5.5 10^3/ul (4.8-10.8)
[2019-02-23 06:10] LABS: BASOPHIL # 0.1 10^3/ul (0.0-0.1); BASOPHILS % 0.9 % (0.0-2.0); EOSINOPHILS # 0.8 10^3/ul (0.0-0.5); EOSINOPHILS % 13.5 % (0.0-7.0); HEMATOCRIT 28.7 % (37.0-47.0); HEMOGLOBIN 8.9 g/dl (12.0-16.0); LYMPHOCYTES # 0.6 10^3/ul (0.8-2.9); LYMPHOCYTES % 11.4 % (15.0-51.0); MEAN CORPUSCULAR VOLUME 90.3 fl (82.0-101.0); MEAN PLATELET VOLUME 9.4 fl (7.4-10.4); MONOCYTES % 17.1 % (0.0-11.0); NEUTROPHIL # 3.1 10^3/ul (1.6-7.5); NEUTROPHILS % 56.7 % (39.0-77.0); NUCLEATED RED BLOOD CELLS # 0.1 10^3/ul (0.0-0.0); NUCLEATED RED BLOOD CELLS% 2.3 /100WBC (0.0-0.0); PLATELET COUNT 387 10^3/UL (140-415); RED BLOOD COUNT 3.18 10^6/ul (4.20-5.40); RED CELL DISTRIBUTION WIDTH 14.8 % (11.5-14.5)
[2019-02-23 06:34] LABS: ANION GAP 3 (5-13); BLOOD UREA NITROGEN 8 mg/dl (7-20); CALCIUM 8.1 mg/dl (8.4-10.2); CARBON DIOXIDE 25 mmol/L (21-31); CHLORIDE 109 mmol/L (97-110); CREATININE 0.67 mg/dl (0.44-1.00); Estimated GFR > 60 mL/min (>60); GLUCOSE 82 mg/dl (70-220); POTASSIUM 3.8 mmol/L (3.5-5.1); SODIUM 137 mmol/L (135-144)
[2019-02-23] MEDS: ONDANSETRON 4 MG INJ IV (09:04)
[2019-02-23] MEDS: OXYCODONE/ACETAMINOPHEN (5/325) TAB PO (09:13)
[2019-02-23] MEDS: TRIMETHOPRIM/SULFAMETHOX (DS) TAB PO (09:14)
[2019-02-23] MEDS: AZATHIOPRINE 50 MG TAB PO (09:14)
[2019-02-23] MEDS: NADOLOL 40 MG TAB PO (09:19)
[2019-02-23] MEDS ORDERED: SUCRALFATE (100 MG/ML) 10ML CUP PO (17:00)
[2019-02-27] MEDS ORDERED: predniSONE 5 MG TAB PO (09:00)
== END 2019-02-23 15:45 | disposition home or self-care (01) | DRG 378 ==
LOC: E/R 14:55 → PP2 18:36
PROC: 0DJ08ZZ Inspection of Upper Intestinal Tract, Via Natural or Artificial Opening Endoscopic (ICD-10-PCS; principal; 2019-02-21 15:45)
PROC: 0DD68ZX Extraction of Stomach, Via Natural or Artificial Opening Endoscopic, Diagnostic (ICD-10-PCS; 2019-02-21 15:45)
PROC: 30233N1 Transfusion of Nonautologous Red Blood Cells into Peripheral Vein, Percutaneous Approach (ICD-10-PCS; 2019-02-21 15:45)
DX: K92.2 Gastrointestinal hemorrhage, unspecified (principal); D62 Acute posthemorrhagic anemia; I85.01 Esophageal varices with bleeding; K52.9 Noninfective gastroenteritis and colitis, unspecified; K92.0 Hematemesis; M32.9 Systemic lupus erythematosus, unspecified; I73.00 Raynaud's syndrome without gangrene; M06.9 Rheumatoid arthritis, unspecified; I85.00 Esophageal varices without bleeding; F32.9 Major depressive disorder, single episode, unspecified; K74.60 Unspecified cirrhosis of liver; Z79.82 Long term (current) use of aspirin
CPT/HCPCS: 36430; 80048; 80053; 81025; 82270; 83690; 83735; 84100; 84484; 85025; 85610; 85730; 86850; 86900; 86901; 86920; 88305; 88312; 88313; 93005; 96374; 96375; 99285-25

== ENCOUNTER 2019-02-26 00:14 | Emergency (ER) | payer OTHER ==
[2019-02-26 01:09] LABS: ADD MAN DIFF? NO
[2019-02-26 01:11] LABS: BASOPHILS % 0.4 % (0.0-2.0); EOSINOPHILS # 0.5 10^3/ul (0.0-0.5); EOSINOPHILS % 5.1 % (0.0-7.0); HEMATOCRIT 31.9 % (37.0-47.0); LYMPHOCYTES # 0.8 10^3/ul (0.8-2.9); LYMPHOCYTES % 7.3 % (15.0-51.0); MEAN CORPUSCULAR HEMOGLOBIN 27.6 pg (29.0-33.0); MEAN CORPUSCULAR HGB CONC 31.3 g/dl (32.0-37.0); MEAN CORPUSCULAR VOLUME 88.1 fl (82.0-101.0); MEAN PLATELET VOLUME 9.5 fl (7.4-10.4); MONOCYTE # 1.1 10^3/ul (0.3-0.9); MONOCYTES % 10.5 % (0.0-11.0); NEUTROPHIL # 8.1 10^3/ul (1.6-7.5); NEUTROPHILS % 76.4 % (39.0-77.0); NUCLEATED RED BLOOD CELLS # 0.1 10^3/ul (0.0-0.0); PLATELET COUNT 434 10^3/UL (140-415); RED BLOOD COUNT 3.62 10^6/ul (4.20-5.40); RED CELL DISTRIBUTION WIDTH 15.6 % (11.5-14.5)
[2019-02-26 01:11] LABS: WHITE BLOOD COUNT 10.6 10^3/ul (4.8-10.8)
[2019-02-26] MEDS: CEFEPIME 1GM/50 ML (PMX) 50 ML IVPB (01:27)
[2019-02-26 01:31] LABS: INR 1.06; PROTIME 13.9 Sec (11.9-14.9); PT RATIO 1.1
[2019-02-26 01:32] LABS: ALANINE AMINOTRANSFERASE 21 IU/L (13-69); ALBUMIN 3.6 g/dl (3.3-4.9); ALKALINE PHOSPHATASE 122 IU/L (42-121); ANION GAP 8 (5-13); ASPARTATE AMINO TRANSFERASE 22 IU/L (15-46); BILIRUBIN,INDIRECT 0.9 mg/dl (0-1.1); BILIRUBIN,TOTAL 0.9 mg/dl (0.2-1.3); BLOOD UREA NITROGEN 4 mg/dl (7-20); CALCIUM 8.6 mg/dl (8.4-10.2); CARBON DIOXIDE 23 mmol/L (21-31); CHLORIDE 107 mmol/L (97-110); CREATININE 0.66 mg/dl (0.44-1.00); Estimated GFR > 60 mL/min (>60); GLUCOSE 95 mg/dl (70-220); POTASSIUM 4.1 mmol/L (3.5-5.1); SODIUM 138 mmol/L (135-144); TOTAL PROTEIN 7.6 g/dl (6.1-8.1)
[2019-02-26] MEDS: ACETAMINOPHEN 325 MG TAB PO (02:00)
[2019-02-26] MEDS: BELLADONNA/PHENOBARBITAL TAB PO (02:00)
[2019-02-26] MEDS: PANTOPRAZOLE 40 MG INJ IV (02:01)
[2019-02-26] MEDS: metroNIDAZOLE 500 MG/NS (PMX) 100 ML IVPB (02:01)
[2019-02-26] MEDS: LIDOCAINE/MYLANTA 40 ML BTL PO (02:01)
[2019-02-26] MEDS: ONDANSETRON 4 MG INJ IV (02:01)
[2019-02-26 02:03] LABS: LIPASE 25 U/L (23-300)
[2019-02-26] MEDS: SODIUM CHLORIDE 0.9% 1L BAG IV* (02:03)
[2019-02-26 02:12] LABS: ADD UMIC YES; UR ASCORBIC ACID NEGATIVE (NEGATIVE); UR BILIRUBIN (Dip) NEGATIVE (NEGATIVE); UR BLOOD (Dip) NEGATIVE (NEGATIVE); UR CLARITY SLIGHTLY CLOUDY (CLEAR); UR COLOR YELLOW (YELLOW); UR GLUCOSE (Dip) NEGATIVE (NEGATIVE); UR KETONES (Dip) NEGATIVE (NEGATIVE); UR LEUKOCYTE ESTERASE (Dip) TRACE Leu/ul (NEGATIVE); UR NITRITE (Dip) NEGATIVE (NEGATIVE); UR RBC 1 /HPF (0-5); UR SPECIFIC GRAVITY (Dip) 1.017 (1.003-1.030); UR SQUAMOUS EPITHELIAL CELL FEW /HPF (FEW); UR TOTAL PROTEIN (Dip) NEGATIVE (NEGATIVE); UR UROBILINOGEN (Dip) 1+ mg/dL (NEGATIVE); UR WBC 1 /HPF (0-5)
[2019-02-26] MEDS: KETOROLAC 15 MG INJ IV (02:12)
[2019-02-26 03:20] LABS: LACTIC ACID 0.9 mmol/L (0.5-2.0)
== END 2019-02-26 04:40 | disposition home or self-care (01) ==
LOC: E/R 00:14
DX: R10.13 Epigastric pain (principal); R00.0 Tachycardia, unspecified; D64.9 Anemia, unspecified; D47.3 Essential (hemorrhagic) thrombocythemia; R11.2 Nausea with vomiting, unspecified; R50.9 Fever, unspecified
CPT/HCPCS: 36415; 71045; 80053; 81001; 83605; 83690; 84484; 84703; 85025; 85610; 85730; 87040-91; 87086; 96365; 96375; 99285-25

== ENCOUNTER 2019-03-04 20:33 | Emergency (ER) | payer OTHER ==
[2019-03-04] MEDS: HYDROCODONE/APAP (5/325) TAB PO (23:32)
[2019-03-04] MEDS: KETOROLAC 30 MG INJ IM (23:33)
== END 2019-03-04 23:38 | disposition home or self-care (01) ==
LOC: FTE 23:38
DX: M54.5 Low back pain (principal)
CPT/HCPCS: 81025; 96372; 99284-25

== ENCOUNTER 2019-03-07 02:32 | Inpatient (IN) | payer OTHER ==
[2019-03-07 03:27] LABS: ADD MAN DIFF? NO
[2019-03-07 03:36] LABS: ADD UMIC YES; UR ASCORBIC ACID NEGATIVE (NEGATIVE); UR BACTERIA FEW /HPF (NONE SEEN); UR BILIRUBIN (Dip) NEGATIVE (NEGATIVE); UR BLOOD (Dip) NEGATIVE (NEGATIVE); UR CLARITY SLIGHTLY CLOUDY (CLEAR); UR COLOR YELLOW (YELLOW); UR GLUCOSE (Dip) NEGATIVE (NEGATIVE); UR KETONES (Dip) NEGATIVE (NEGATIVE); UR LEUKOCYTE ESTERASE (Dip) 2+ Leu/ul (NEGATIVE); UR MUCUS FEW /HPF (NONE SEEN); UR NITRITE (Dip) NEGATIVE (NEGATIVE); UR RBC 0 /HPF (0-5); UR SPECIFIC GRAVITY (Dip) 1.009 (1.003-1.030); UR SQUAMOUS EPITHELIAL CELL FEW /HPF (FEW); UR TOTAL PROTEIN (Dip) NEGATIVE (NEGATIVE); UR UROBILINOGEN (Dip) NEGATIVE (NEGATIVE); UR WBC 5 /HPF (0-5)
[2019-03-07 03:47] LABS: ALANINE AMINOTRANSFERASE 17 IU/L (13-69); ALBUMIN 3.3 g/dl (3.3-4.9); ALBUMIN/GLOBULIN RATIO 0.78; ALKALINE PHOSPHATASE 156 IU/L (42-121); ANION GAP 7 (5-13); ASPARTATE AMINO TRANSFERASE 18 IU/L (15-46); BILIRUBIN,INDIRECT 0.3 mg/dl (0-1.1); BILIRUBIN,TOTAL 0.3 mg/dl (0.2-1.3); BLOOD UREA NITROGEN 3 mg/dl (7-20); CALCIUM 8.9 mg/dl (8.4-10.2); CARBON DIOXIDE 27 mmol/L (21-31); CHLORIDE 111 mmol/L (97-110); CREATININE 0.62 mg/dl (0.44-1.00); Estimated GFR > 60 mL/min (>60); GLUCOSE 120 mg/dl (70-220); LIPASE 24 U/L (23-300); POTASSIUM 4.2 mmol/L (3.5-5.1); SODIUM 145 mmol/L (135-144); TOTAL PROTEIN 7.5 g/dl (6.1-8.1)
[2019-03-07 04:12] LABS: ABNORMAL IP MESSAGE 1; BASOPHILS % 0.5 % (0.0-2.0); EOSINOPHILS % 0.5 % (0.0-7.0); HEMATOCRIT 28.2 % (37.0-47.0); HEMOGLOBIN 8.7 g/dl (12.0-16.0); LYMPHOCYTES # 0.3 10^3/ul (0.8-2.9); MEAN CORPUSCULAR HEMOGLOBIN 26.9 pg (29.0-33.0); MEAN CORPUSCULAR HGB CONC 30.9 g/dl (32.0-37.0); MEAN CORPUSCULAR VOLUME 87.3 fl (82.0-101.0); MEAN PLATELET VOLUME 9.4 fl (7.4-10.4); MONOCYTE # 0.9 10^3/ul (0.3-0.9); MONOCYTES % 16.5 % (0.0-11.0); NEUTROPHIL # 4.3 10^3/ul (1.6-7.5); NUCLEATED RED BLOOD CELLS # 0.2 10^3/ul (0.0-0.0); NUCLEATED RED BLOOD CELLS% 3.2 /100WBC (0.0-0.0); PLATELET COUNT 828 10^3/UL (140-415); RED BLOOD COUNT 3.23 10^6/ul (4.20-5.40); RED CELL DISTRIBUTION WIDTH 16.5 % (11.5-14.5)
[2019-03-07 04:12] LABS: WHITE BLOOD COUNT 5.6 10^3/ul (4.8-10.8)
[2019-03-07 04:19] LABS: POSITIVE DIFF @See below
[2019-03-07] MEDS ORDERED: ACETAMINOPHEN 325 MG TAB PO ×2 (06:30→07:00)
[2019-03-07] MEDS ORDERED: ONDANSETRON 4 MG INJ IV (06:30)
[2019-03-07] MEDS: SOD CHLORIDE 0.9% 1,000 ML IV ×4 (06:55→20:45)
[2019-03-07] MEDS: ONDANSETRON 4 MG INJ IV (06:56)
[2019-03-07] MEDS: morphine 4 MG/ML VIAL IV (06:56)
[2019-03-07] MEDS ORDERED: MAGNESIUM HYDROXIDE 30ML CUP PO (07:00)
[2019-03-07] MEDS ORDERED: ALBUTEROL/IPRATROPIUM (NEB) 3 ML AMP HHN (07:00)
[2019-03-07] MEDS ORDERED: DOCUSATE SODIUM 100 MG CAP PO (07:00)
[2019-03-07] MEDS ORDERED: LORAZEPAM 2 MG INJ IV (07:00)
[2019-03-07] MEDS ORDERED: hydrALAzine 20 MG INJ IV (07:00)
[2019-03-07] MEDS ORDERED: NACL 0.9% 3 ML SYG IV (07:00)
[2019-03-07 08:11] LABS: FREE T4 (FREE THYROXINE) 1.42 ng/dl (0.79-2.35)
[2019-03-07 09:28] LABS: ANISOCYTOSIS 2+ (0-0); BAND NEUTROPHILS % (M) 1 % (0-4); BURR CELLS 1+ (0-0); EOSINOPHILS % (M) 1 % (0-7); ERYTHROBLAST% (NRBC) (M) 5 % (0-0); GIANT THROMBO% (M) 11 % (0-0); HYPOCHROMASIA 2+ (0-0); LYMPHOCYTES #M 0.6 10^3/ul (0.8-2.9); LYMPHOCYTES % (M) 11 % (15-51); MONOCYTE #M 0.6 10^3/ul (0.3-0.9); MONOCYTES % (M) 12 % (0-11); PLATELET ESTIMATE INCREASED; PLATELET MORPHOLOGY COMMENT @See below; POIKILOCYTOSIS 2+ (0-0); POLYCHROMASIA 3+ (0-0); REACTIVE LYMPHOCYTES% (M) 1 % (0-0); SEG NEUT #M 4.1 10^3/ul (1.6-7.5); SEGMENTED NEUTROPHILS (M) % 74 % (39-77); SMUDGE%M 4 % (0-0)
[2019-03-07] MEDS: HEPARIN 5,000 UNIT/1 ML VIAL SC ×2 (10:13→20:56)
[2019-03-07] MEDS: FAMOTIDINE 20 MG INJ IV ×2 (10:13→20:45)
[2019-03-07] MEDS: morphine 2 MG INJ IV ×2 (13:05→19:46)
[2019-03-08] MEDS: morphine 2 MG INJ IV ×3 (00:03→08:58)
[2019-03-08] MEDS: ONDANSETRON 4 MG INJ IV ×3 (00:03→21:49)
[2019-03-08] MEDS: DEXTROSE 5%-0.45% NACL 1,000 ML IV ×3 (02:39→09:56)
[2019-03-08] MEDS: HYDROCODONE/APAP (5/325) TAB PO ×2 (02:40→10:04)
[2019-03-08] MEDS: PANTOPRAZOLE 40 MG INJ IV ×2 (05:34→16:24)
[2019-03-08 05:57] LABS: ADD MAN DIFF? NO
[2019-03-08 06:01] LABS: WHITE BLOOD COUNT 9.7 10^3/ul (4.8-10.8)
[2019-03-08 06:01] LABS: ABNORMAL IP MESSAGE 1; BASOPHIL # 0.1 10^3/ul (0.0-0.1); BASOPHILS % 0.6 % (0.0-2.0); EOSINOPHILS # 0.5 10^3/ul (0.0-0.5); EOSINOPHILS % 5.3 % (0.0-7.0); HEMATOCRIT 27.3 % (37.0-47.0); HEMOGLOBIN 8.3 g/dl (12.0-16.0); LYMPHOCYTES # 0.8 10^3/ul (0.8-2.9); LYMPHOCYTES % 7.8 % (15.0-51.0); MEAN CORPUSCULAR HEMOGLOBIN 26.6 pg (29.0-33.0); MEAN CORPUSCULAR HGB CONC 30.4 g/dl (32.0-37.0); MEAN CORPUSCULAR VOLUME 87.5 fl (82.0-101.0); MEAN PLATELET VOLUME 9.6 fl (7.4-10.4); MONOCYTE # 1.5 10^3/ul (0.3-0.9); MONOCYTES % 15.7 % (0.0-11.0); NEUTROPHIL # 6.8 10^3/ul (1.6-7.5); NUCLEATED RED BLOOD CELLS # 0.2 10^3/ul (0.0-0.0); NUCLEATED RED BLOOD CELLS% 1.8 /100WBC (0.0-0.0); PLATELET COUNT 841 10^3/UL (140-415); RED BLOOD COUNT 3.12 10^6/ul (4.20-5.40)
[2019-03-08 06:12] LABS: POSITIVE DIFF @See below
[2019-03-08 06:13] LABS: PATH REVIEW? YES
[2019-03-08 06:30] LABS: ANION GAP 6 (5-13); BLOOD UREA NITROGEN 5 mg/dl (7-20); CALCIUM 8.2 mg/dl (8.4-10.2); CARBON DIOXIDE 24 mmol/L (21-31); CHLORIDE 110 mmol/L (97-110); CREATININE 0.64 mg/dl (0.44-1.00); Estimated GFR > 60 mL/min (>60); GLUCOSE 128 mg/dl (70-220); LIPASE 10 U/L (23-300); MAGNESIUM 1.7 mg/dl (1.7-2.5); PHOSPHORUS 3.9 mg/dl (2.5-4.9); POTASSIUM 3.5 mmol/L (3.5-5.1); SODIUM 140 mmol/L (135-144)
[2019-03-08 06:31] LABS: CHOL/HDL RATIO 3.4 RATIO; HDL CHOLESTEROL 25 mg/dl (34-82); LDL CHOLESTEROL,CALCULATED 44 mg/dl; TRIGLYCERIDES 92 mg/dl (0-149)
[2019-03-08 06:31] LABS: CHOLESTEROL 87 mg/dl (100-200)
[2019-03-08 06:47] LABS: HEMOGLOBIN A1C 5.4 % (0-5.9)
[2019-03-08 09:49] LABS: PATH REVIEWED BY Y
[2019-03-08] MEDS: CYCLOBENZAPRINE 10 MG TAB PO ×3 (09:58→21:49)
[2019-03-08] MEDS: CALCIUM/VITAMIN D (500/200) TAB PO (09:59)
[2019-03-08] MEDS: NADOLOL 40 MG TAB PO ×2 (10:01→21:52)
[2019-03-08] MEDS: SUCRALFATE (100 MG/ML) 10ML CUP PO ×4 (10:01→21:49)
[2019-03-08] MEDS: AZATHIOPRINE 50 MG TAB PO (10:02)
[2019-03-08] MEDS: AMLODIPINE 10 MG TAB PO ×2 (10:02→21:51)
[2019-03-08] MEDS: predniSONE 5 MG TAB PO (10:02)
[2019-03-08] MEDS: HEPARIN 5,000 UNIT/1 ML VIAL SC ×2 (10:07→22:20)
[2019-03-08] MEDS: NITROGLYCERIN (SL) 0.4 MG TAB SL ×2 (10:14→10:24)
[2019-03-08] MEDS: METOCLOPRAMIDE 10 MG INJ IV (12:09)
[2019-03-08] MEDS: morphine 4 MG/ML VIAL IV ×3 (12:09→21:49)
[2019-03-08 12:59] LABS: TRIGLYCERIDES 76 mg/dl (0-149)
[2019-03-08] MEDS: METHYLPREDNISOLONE 125 MG INJ IV (12:59)
[2019-03-08] MEDS: MAGNESIUM SULFATE 1 GM/D5W 100 ML IVPB (13:09)
[2019-03-08] MEDS: COLCHICINE 0.6 MG TAB PO ×2 (13:09→21:49)
[2019-03-08 17:48] LABS: C-REACTIVE PROTEIN 8.4 mg/dl (0.0-0.9)
[2019-03-08 18:23] LABS: ERYTHROCYTE SEDIMENTATION RATE 40 mm/Hr (0-20)
[2019-03-08] MEDS: METHYLPREDNISOLONE 40 MG INJ IV (21:54)
[2019-03-09] MEDS: METHYLPREDNISOLONE 40 MG INJ IV ×2 (05:38→13:20)
[2019-03-09] MEDS: ONDANSETRON 4 MG INJ IV ×2 (05:38→20:58)
[2019-03-09] MEDS: PANTOPRAZOLE 40 MG INJ IV ×2 (05:38→18:00)
[2019-03-09] MEDS: morphine 4 MG/ML VIAL IV ×3 (05:39→20:58)
[2019-03-09 06:43] LABS: ADD MAN DIFF? NO
[2019-03-09 06:52] LABS: WHITE BLOOD COUNT 13.1 10^3/ul (4.8-10.8)
[2019-03-09 06:52] LABS: ABNORMAL IP MESSAGE 1; BASOPHILS % 0.1 % (0.0-2.0); HEMATOCRIT 27.5 % (37.0-47.0); HEMOGLOBIN 8.5 g/dl (12.0-16.0); LYMPHOCYTES # 0.2 10^3/ul (0.8-2.9); LYMPHOCYTES % 1.8 % (15.0-51.0); MEAN CORPUSCULAR HGB CONC 30.9 g/dl (32.0-37.0); MEAN CORPUSCULAR VOLUME 87.3 fl (82.0-101.0); MEAN PLATELET VOLUME 9.6 fl (7.4-10.4); MONOCYTE # 0.9 10^3/ul (0.3-0.9); MONOCYTES % 6.5 % (0.0-11.0); NEUTROPHIL # 11.9 10^3/ul (1.6-7.5); NEUTROPHILS % 90.8 % (39.0-77.0); NUCLEATED RED BLOOD CELLS # 0.2 10^3/ul (0.0-0.0); NUCLEATED RED BLOOD CELLS% 1.7 /100WBC (0.0-0.0); PLATELET COUNT 759 10^3/UL (140-415); RED BLOOD COUNT 3.15 10^6/ul (4.20-5.40)
[2019-03-09 07:10] LABS: AMYLASE 40 U/L (11-123)
[2019-03-09 07:16] LABS: ANION GAP 8 (5-13); BLOOD UREA NITROGEN 11 mg/dl (7-20); CARBON DIOXIDE 25 mmol/L (21-31); CHLORIDE 106 mmol/L (97-110); CREATININE 0.57 mg/dl (0.44-1.00); Estimated GFR > 60 mL/min (>60); GLUCOSE 133 mg/dl (70-220); LIPASE < 10 U/L (23-300); POTASSIUM 4.1 mmol/L (3.5-5.1); SODIUM 139 mmol/L (135-144)
[2019-03-09] MEDS: CYCLOBENZAPRINE 10 MG TAB PO ×3 (08:00→20:58)
[2019-03-09] MEDS: NADOLOL 40 MG TAB PO ×2 (08:00→20:56)
[2019-03-09] MEDS: CALCIUM/VITAMIN D (500/200) TAB PO (08:00)
[2019-03-09] MEDS: COLCHICINE 0.6 MG TAB PO ×2 (08:00→20:56)
[2019-03-09] MEDS: DEXTROSE 5%-0.45% NACL 1,000 ML IV (08:01)
[2019-03-09] MEDS: AMLODIPINE 10 MG TAB PO ×2 (08:01→20:57)
[2019-03-09] MEDS: SUCRALFATE (100 MG/ML) 10ML CUP PO ×4 (08:01→20:57)
[2019-03-09] MEDS: AZATHIOPRINE 50 MG TAB PO (08:12)
[2019-03-09] MEDS: HEPARIN 5,000 UNIT/1 ML VIAL SC ×2 (08:12→21:29)
[2019-03-09] MEDS: CEFEPIME 1GM/50 ML (PMX) 50 ML IVPB ×2 (16:04→20:43)
[2019-03-09] MEDS ORDERED: METHYLPREDNISOLONE 40 MG INJ IV (21:00)
[2019-03-09] MEDS: HYDROCODONE/APAP (5/325) TAB PO (22:27)
[2019-03-09] MEDS: LINEZOLID 600 MG/300 ML (PMX) 300 ML IVPB (22:42)
[2019-03-09 22:47] LABS: RHEUMATOID FACTOR NEGATIVE (NEGATIVE)
[2019-03-10] MEDS: traMADol 50 MG TAB PO ×2 (00:28→08:56)
[2019-03-10 05:37] LABS: ADD MAN DIFF? NO
[2019-03-10 05:47] LABS: WHITE BLOOD COUNT 14.2 10^3/ul (4.8-10.8)
[2019-03-10 05:47] LABS: ABNORMAL IP MESSAGE 1; BASOPHILS % 0.1 % (0.0-2.0); HEMATOCRIT 26.8 % (37.0-47.0); HEMOGLOBIN 8.2 g/dl (12.0-16.0); LYMPHOCYTES # 0.2 10^3/ul (0.8-2.9); LYMPHOCYTES % 1.3 % (15.0-51.0); MEAN CORPUSCULAR HEMOGLOBIN 26.4 pg (29.0-33.0); MEAN CORPUSCULAR HGB CONC 30.6 g/dl (32.0-37.0); MEAN CORPUSCULAR VOLUME 86.2 fl (82.0-101.0); MEAN PLATELET VOLUME 9.7 fl (7.4-10.4); MONOCYTE # 1.4 10^3/ul (0.3-0.9); NEUTROPHIL # 12.5 10^3/ul (1.6-7.5); NEUTROPHILS % 87.5 % (39.0-77.0); NUCLEATED RED BLOOD CELLS # 0.4 10^3/ul (0.0-0.0); PLATELET COUNT 742 10^3/UL (140-415); RED BLOOD COUNT 3.11 10^6/ul (4.20-5.40); RED CELL DISTRIBUTION WIDTH 17.1 % (11.5-14.5)
[2019-03-10 05:48] LABS: POSITIVE DIFF @See below
[2019-03-10 06:15] LABS: ANION GAP 9 (5-13); BLOOD UREA NITROGEN 19 mg/dl (7-20); CALCIUM 8.9 mg/dl (8.4-10.2); CARBON DIOXIDE 24 mmol/L (21-31); CHLORIDE 108 mmol/L (97-110); CREATININE 0.49 mg/dl (0.44-1.00); Estimated GFR > 60 mL/min (>60); GLUCOSE 127 mg/dl (70-220); POTASSIUM 4.5 mmol/L (3.5-5.1); SODIUM 141 mmol/L (135-144)
[2019-03-10] MEDS: PANTOPRAZOLE 40 MG INJ IV ×2 (07:06→17:55)
[2019-03-10] MEDS: CALCIUM/VITAMIN D (500/200) TAB PO (08:25)
[2019-03-10] MEDS: SUCRALFATE (100 MG/ML) 10ML CUP PO ×4 (08:26→21:41)
[2019-03-10] MEDS: COLCHICINE 0.6 MG TAB PO ×2 (08:26→21:35)
[2019-03-10] MEDS: METHYLPREDNISOLONE 40 MG INJ IV ×2 (08:26→21:41)
[2019-03-10] MEDS: AZATHIOPRINE 50 MG TAB PO (08:28)
[2019-03-10] MEDS: NADOLOL 40 MG TAB PO ×2 (08:28→21:44)
[2019-03-10] MEDS: CYCLOBENZAPRINE 10 MG TAB PO ×3 (08:28→21:35)
[2019-03-10] MEDS: AMLODIPINE 10 MG TAB PO ×2 (08:28→21:40)
[2019-03-10] MEDS: CEFEPIME 1GM/50 ML (PMX) 50 ML IVPB ×2 (08:29→21:43)
[2019-03-10] MEDS: ONDANSETRON 4 MG INJ IV ×2 (08:56→18:18)
[2019-03-10] MEDS ORDERED: predniSONE 10 MG TAB PO (09:00)
[2019-03-10] MEDS: HEPARIN 5,000 UNIT/1 ML VIAL SC ×2 (09:21→23:04)
[2019-03-10] MEDS: LINEZOLID 600 MG/300 ML (PMX) 300 ML IVPB ×2 (10:04→21:43)
[2019-03-10] MEDS: HYDROCODONE/APAP (5/325) TAB PO (11:08)
[2019-03-10] MEDS: HYDROmorphONE 1 MG/ML SYG IV ×2 (13:19→18:19)
[2019-03-10 17:21] LABS: CYCLIC CITRULLINATED PEP IGG <16 UNITS
[2019-03-10] MEDS: CREON (24K-76K-120K) 1 CAP PO (17:55)
[2019-03-10 18:56] LABS: ANA SCREEN POSITIVE (NEGATIVE)
[2019-03-10 21:17] LABS: ANA PATTERN SPECKLED
[2019-03-11] MEDS: traMADol 50 MG TAB PO (03:13)
[2019-03-11] MEDS: HYDROmorphONE 1 MG/ML SYG IV ×3 (03:45→22:28)
[2019-03-11] MEDS: ONDANSETRON 4 MG INJ IV (03:47)
[2019-03-11 06:13] LABS: ADD MAN DIFF? NO
[2019-03-11 06:19] LABS: ABNORMAL IP MESSAGE 1; BASOPHILS % 0.1 % (0.0-2.0); HEMATOCRIT 29.3 % (37.0-47.0); HEMOGLOBIN 8.7 g/dl (12.0-16.0); MEAN CORPUSCULAR HEMOGLOBIN 25.9 pg (29.0-33.0); MEAN CORPUSCULAR HGB CONC 29.7 g/dl (32.0-37.0); MEAN CORPUSCULAR VOLUME 87.2 fl (82.0-101.0); MEAN PLATELET VOLUME 9.8 fl (7.4-10.4); MONOCYTES % 9.2 % (0.0-11.0); NEUTROPHIL # 9.7 10^3/ul (1.6-7.5); NEUTROPHILS % 88.5 % (39.0-77.0); NUCLEATED RED BLOOD CELLS # 0.9 10^3/ul (0.0-0.0); NUCLEATED RED BLOOD CELLS% 7.9 /100WBC (0.0-0.0); PLATELET COUNT 745 10^3/UL (140-415); RED BLOOD COUNT 3.36 10^6/ul (4.20-5.40); RED CELL DISTRIBUTION WIDTH 17.2 % (11.5-14.5)
[2019-03-11] MEDS: PANTOPRAZOLE 40 MG INJ IV ×2 (06:24→17:45)
[2019-03-11 06:28] LABS: POSITIVE DIFF @See below
[2019-03-11 06:57] LABS: ANION GAP 6 (5-13); BLOOD UREA NITROGEN 23 mg/dl (7-20); CALCIUM 9.2 mg/dl (8.4-10.2); CARBON DIOXIDE 28 mmol/L (21-31); CHLORIDE 106 mmol/L (97-110); CREATININE 0.56 mg/dl (0.44-1.00); Estimated GFR > 60 mL/min (>60); GLUCOSE 130 mg/dl (70-220); POTASSIUM 4.7 mmol/L (3.5-5.1); SODIUM 140 mmol/L (135-144)
[2019-03-11] MEDS: CALCIUM/VITAMIN D (500/200) TAB PO (08:22)
[2019-03-11] MEDS: AZATHIOPRINE 50 MG TAB PO (08:22)
[2019-03-11] MEDS: CREON (24K-76K-120K) 1 CAP PO ×3 (08:22→17:44)
[2019-03-11] MEDS: SUCRALFATE (100 MG/ML) 10ML CUP PO ×5 (08:23→22:28)
[2019-03-11] MEDS: COLCHICINE 0.6 MG TAB PO ×2 (08:23→21:07)
[2019-03-11] MEDS: CEFEPIME 1GM/50 ML (PMX) 50 ML IVPB ×2 (08:23→21:04)
[2019-03-11] MEDS: CYCLOBENZAPRINE 10 MG TAB PO ×3 (08:23→21:07)
[2019-03-11] MEDS: METHYLPREDNISOLONE 40 MG INJ IV ×2 (08:23→21:03)
[2019-03-11] MEDS: AMLODIPINE 10 MG TAB PO ×2 (08:25→21:08)
[2019-03-11] MEDS: NADOLOL 40 MG TAB PO ×2 (08:26→21:07)
[2019-03-11] MEDS: HEPARIN 5,000 UNIT/1 ML VIAL SC ×2 (08:40→22:09)
[2019-03-11] MEDS: LINEZOLID 600 MG/300 ML (PMX) 300 ML IVPB ×2 (09:24→21:10)
[2019-03-11 17:21] LABS: ANTI-DNA (DOUBLE STRANDED) <95 U/mL (< 301)
[2019-03-12] MEDS: ONDANSETRON 4 MG INJ IV ×3 (00:22→20:42)
[2019-03-12 05:33] LABS: ABNORMAL IP MESSAGE 1; HEMATOCRIT 28.5 % (37.0-47.0); HEMOGLOBIN 8.4 g/dl (12.0-16.0); MEAN CORPUSCULAR HEMOGLOBIN 25.6 pg (29.0-33.0); MEAN CORPUSCULAR HGB CONC 29.5 g/dl (32.0-37.0); MEAN CORPUSCULAR VOLUME 86.9 fl (82.0-101.0); MEAN PLATELET VOLUME 9.9 fl (7.4-10.4); NUCLEATED RED BLOOD CELLS% 12.5 /100WBC (0.0-0.0); PLATELET COUNT 688 10^3/UL (140-415); RED BLOOD COUNT 3.28 10^6/ul (4.20-5.40)
[2019-03-12 05:33] LABS: WHITE BLOOD COUNT 7.4 10^3/ul (4.8-10.8)
[2019-03-12 05:46] LABS: POSITIVE DIFF @See below
[2019-03-12 05:47] LABS: ADD MAN DIFF? YES
[2019-03-12] MEDS: PANTOPRAZOLE 40 MG INJ IV ×2 (05:56→17:05)
[2019-03-12 06:21] LABS: ANION GAP 5 (5-13); BLOOD UREA NITROGEN 20 mg/dl (7-20); CARBON DIOXIDE 28 mmol/L (21-31); CHLORIDE 105 mmol/L (97-110); CREATININE 0.55 mg/dl (0.44-1.00); Estimated GFR > 60 mL/min (>60); GLUCOSE 122 mg/dl (70-220); POTASSIUM 4.2 mmol/L (3.5-5.1); SODIUM 138 mmol/L (135-144)
[2019-03-12] MEDS: METHYLPREDNISOLONE 40 MG INJ IV ×2 (08:31→20:45)
[2019-03-12] MEDS: AZATHIOPRINE 50 MG TAB PO (08:31)
[2019-03-12] MEDS: CREON (24K-76K-120K) 1 CAP PO ×3 (08:31→17:05)
[2019-03-12] MEDS: COLCHICINE 0.6 MG TAB PO ×2 (08:32→20:44)
[2019-03-12] MEDS: CALCIUM/VITAMIN D (500/200) TAB PO (08:32)
[2019-03-12] MEDS: CYCLOBENZAPRINE 10 MG TAB PO ×3 (08:32→20:45)
[2019-03-12] MEDS: NADOLOL 40 MG TAB PO ×2 (08:32→20:44)
[2019-03-12] MEDS: AMLODIPINE 10 MG TAB PO ×2 (08:32→20:45)
[2019-03-12] MEDS: HYDROmorphONE 1 MG/ML SYG IV ×3 (08:33→20:42)
[2019-03-12] MEDS: CEFEPIME 1GM/50 ML (PMX) 50 ML IVPB ×2 (08:33→20:45)
[2019-03-12] MEDS: HEPARIN 5,000 UNIT/1 ML VIAL SC ×2 (08:34→21:15)
[2019-03-12 10:11] LABS: ANISOCYTOSIS 2+ (0-0); BAND NEUTROPHILS #M 0.4 10^3/ul (0.0-0.6); BAND NEUTROPHILS % (M) 6 % (0-4); BURR CELLS 1+ (0-0); ERYTHROBLAST% (NRBC) (M) 21 % (0-0); HYPOCHROMASIA 1+ (0-0); LYMPHOCYTES #M 0.5 10^3/ul (0.8-2.9); LYMPHOCYTES % (M) 7 % (15-51); MONOCYTE #M 0.5 10^3/ul (0.3-0.9); MONOCYTES % (M) 8 % (0-11); PLATELET ESTIMATE INCREASED; POIKILOCYTOSIS 3+ (0-0); POLYCHROMASIA 3+ (0-0); SEG NEUT #M 5.9 10^3/ul (1.6-7.5); SEGMENTED NEUTROPHILS (M) % 79 % (39-77); SMUDGE%M 2 % (0-0); TARGET CELLS 1+ (0-0)
[2019-03-12] MEDS: LINEZOLID 600 MG/300 ML (PMX) 300 ML IVPB ×2 (10:36→20:59)
[2019-03-12] MEDS: SUCRALFATE (100 MG/ML) 10ML CUP PO ×3 (12:21→20:42)
[2019-03-13] MEDS: PANTOPRAZOLE 40 MG INJ IV (06:00)
[2019-03-13 06:07] LABS: ADD MAN DIFF? NO
[2019-03-13 06:31] LABS: ABNORMAL IP MESSAGE 1; BASOPHILS % 0.1 % (0.0-2.0); MEAN CORPUSCULAR VOLUME 86.7 fl (82.0-101.0); MONOCYTE # 0.7 10^3/ul (0.3-0.9); MONOCYTES % 7.8 % (0.0-11.0); NEUTROPHIL # 7.8 10^3/ul (1.6-7.5); NEUTROPHILS % 90.9 % (39.0-77.0); NUCLEATED RED BLOOD CELLS # 0.8 10^3/ul (0.0-0.0); NUCLEATED RED BLOOD CELLS% 9.3 /100WBC (0.0-0.0); PLATELET COUNT 664 10^3/UL (140-415); RED BLOOD COUNT 3.46 10^6/ul (4.20-5.40); RED CELL DISTRIBUTION WIDTH 16.8 % (11.5-14.5)
[2019-03-13 06:31] LABS: WHITE BLOOD COUNT 8.6 10^3/ul (4.8-10.8)
[2019-03-13 06:44] LABS: POSITIVE DIFF @See below
[2019-03-13 06:56] LABS: ANION GAP 6 (5-13); BLOOD UREA NITROGEN 23 mg/dl (7-20); CALCIUM 8.8 mg/dl (8.4-10.2); CARBON DIOXIDE 28 mmol/L (21-31); CHLORIDE 106 mmol/L (97-110); CREATININE 0.54 mg/dl (0.44-1.00); Estimated GFR > 60 mL/min (>60); GLUCOSE 126 mg/dl (70-220); POTASSIUM 4.1 mmol/L (3.5-5.1); SODIUM 140 mmol/L (135-144)
[2019-03-13] MEDS: CALCIUM/VITAMIN D (500/200) TAB PO (08:11)
[2019-03-13] MEDS: AMLODIPINE 10 MG TAB PO ×2 (08:12→22:00)
[2019-03-13] MEDS: CYCLOBENZAPRINE 10 MG TAB PO ×3 (08:13→21:59)
[2019-03-13] MEDS: AZATHIOPRINE 50 MG TAB PO (08:13)
[2019-03-13] MEDS: COLCHICINE 0.6 MG TAB PO ×2 (08:13→21:59)
[2019-03-13] MEDS: CREON (24K-76K-120K) 1 CAP PO ×3 (08:13→18:50)
[2019-03-13] MEDS: NADOLOL 40 MG TAB PO ×2 (08:13→21:59)
[2019-03-13] MEDS: METHYLPREDNISOLONE 40 MG INJ IV ×2 (08:14→21:56)
[2019-03-13] MEDS: CEFEPIME 1GM/50 ML (PMX) 50 ML IVPB (08:14)
[2019-03-13] MEDS: SUCRALFATE (100 MG/ML) 10ML CUP PO ×4 (08:14→21:59)
[2019-03-13] MEDS: HYDROmorphONE 1 MG/ML SYG IV ×3 (08:23→18:51)
[2019-03-13] MEDS: ONDANSETRON 4 MG INJ IV ×2 (08:23→14:16)
[2019-03-13] MEDS: HEPARIN 5,000 UNIT/1 ML VIAL SC ×2 (08:35→22:03)
[2019-03-13] MEDS: LINEZOLID 600 MG/300 ML (PMX) 300 ML IVPB ×2 (09:36→21:54)
[2019-03-13] MEDS: LACTOBACILLUS RHAMNOSUS CAP PO (17:34)
[2019-03-13] MEDS: PANTOPRAZOLE (EC) 40 MG TAB PO (17:34)
[2019-03-13] MEDS: METOCLOPRAMIDE 10 MG INJ IV (18:50)
[2019-03-14] MEDS: METOCLOPRAMIDE 10 MG INJ IV (02:23)
[2019-03-14] MEDS: HYDROmorphONE 1 MG/ML SYG IV ×4 (02:23→21:23)
[2019-03-14] MEDS: PANTOPRAZOLE (EC) 40 MG TAB PO ×2 (05:40→17:51)
[2019-03-14] MEDS: LEVOFLOXACIN 750 MG TABLET PO (05:40)
[2019-03-14 05:56] LABS: ADD MAN DIFF? NO
[2019-03-14 05:59] LABS: WHITE BLOOD COUNT 12.4 10^3/ul (4.8-10.8)
[2019-03-14 05:59] LABS: ABNORMAL IP MESSAGE 1; BASOPHILS % 0.1 % (0.0-2.0); EOSINOPHILS % 0.1 % (0.0-7.0); HEMATOCRIT 30.5 % (37.0-47.0); HEMOGLOBIN 9.2 g/dl (12.0-16.0); LYMPHOCYTES # 0.1 10^3/ul (0.8-2.9); MEAN CORPUSCULAR HEMOGLOBIN 26.2 pg (29.0-33.0); MEAN CORPUSCULAR HGB CONC 30.2 g/dl (32.0-37.0); MEAN CORPUSCULAR VOLUME 86.9 fl (82.0-101.0); MEAN PLATELET VOLUME 9.9 fl (7.4-10.4); MONOCYTE # 1.2 10^3/ul (0.3-0.9); MONOCYTES % 9.3 % (0.0-11.0); NEUTROPHIL # 10.9 10^3/ul (1.6-7.5); NEUTROPHILS % 88.2 % (39.0-77.0); NUCLEATED RED BLOOD CELLS% 8.2 /100WBC (0.0-0.0); PLATELET COUNT 595 10^3/UL (140-415); RED BLOOD COUNT 3.51 10^6/ul (4.20-5.40); RED CELL DISTRIBUTION WIDTH 16.8 % (11.5-14.5)
[2019-03-14 06:12] LABS: POSITIVE DIFF @See below
[2019-03-14 06:26] LABS: ANION GAP 5 (5-13); BLOOD UREA NITROGEN 21 mg/dl (7-20); CALCIUM 8.6 mg/dl (8.4-10.2); CARBON DIOXIDE 29 mmol/L (21-31); CHLORIDE 105 mmol/L (97-110); CREATININE 0.52 mg/dl (0.44-1.00); Estimated GFR > 60 mL/min (>60); GLUCOSE 110 mg/dl (70-220); POTASSIUM 4.1 mmol/L (3.5-5.1); SODIUM 139 mmol/L (135-144)
[2019-03-14] MEDS: METHYLPREDNISOLONE 40 MG INJ IV ×2 (08:33→21:21)
[2019-03-14] MEDS: AMLODIPINE 10 MG TAB PO ×2 (08:33→21:22)
[2019-03-14] MEDS: CREON (24K-76K-120K) 1 CAP PO ×3 (08:34→17:51)
[2019-03-14] MEDS: NADOLOL 40 MG TAB PO ×2 (08:34→21:00)
[2019-03-14] MEDS: CYCLOBENZAPRINE 10 MG TAB PO ×3 (08:34→21:22)
[2019-03-14] MEDS: AMOXICILLIN 500 MG CAP PO ×2 (08:34→21:22)
[2019-03-14] MEDS: COLCHICINE 0.6 MG TAB PO ×2 (08:34→21:22)
[2019-03-14] MEDS: LACTOBACILLUS RHAMNOSUS CAP PO ×3 (08:34→17:51)
[2019-03-14] MEDS: CALCIUM/VITAMIN D (500/200) TAB PO (08:34)
[2019-03-14] MEDS: AZATHIOPRINE 50 MG TAB PO (08:35)
[2019-03-14] MEDS: HEPARIN 5,000 UNIT/1 ML VIAL SC ×2 (08:41→21:32)
[2019-03-14] MEDS ORDERED: DOXYCYCLINE 100 MG TAB PO (09:00)
[2019-03-14] MEDS: SUCRALFATE (100 MG/ML) 10ML CUP PO ×4 (10:01→21:22)
[2019-03-14] MEDS ORDERED: BARIUM SULF 2% 450 ML BTL (BERRY SMOOTHIE) PO ×2 (12:30→16:00)
[2019-03-14] MEDS: BARIUM SULF 2% 450 ML BTL (BERRY SMOOTHIE) PO (17:29)
[2019-03-14] MEDS: IOHEXOL 300MG/ML 150 ML BTL (19:55)
[2019-03-14] MEDS: SOD CHLORIDE 0.9% 100 ML (19:56)
[2019-03-14] MEDS: ONDANSETRON 4 MG INJ IV (21:23)
[2019-03-15] MEDS ORDERED: VANCOMYCIN IV PER PHARMACY XX (01:00)
[2019-03-15] MEDS ORDERED: PIPER-TAZO 3.375 GM IV (PMX) 100 ML IVPB (01:00)
[2019-03-15 01:23] LABS: WHITE BLOOD COUNT 14.6 10^3/ul (4.8-10.8)
[2019-03-15 01:23] LABS: ABNORMAL IP MESSAGE 1; ADD MAN DIFF? NO; BASOPHILS % 0.1 % (0.0-2.0); EOSINOPHILS # 0.1 10^3/ul (0.0-0.5); EOSINOPHILS % 0.4 % (0.0-7.0); HEMATOCRIT 33.4 % (37.0-47.0); HEMOGLOBIN 9.8 g/dl (12.0-16.0); MEAN CORPUSCULAR HEMOGLOBIN 25.3 pg (29.0-33.0); MEAN CORPUSCULAR HGB CONC 29.3 g/dl (32.0-37.0); MEAN CORPUSCULAR VOLUME 86.3 fl (82.0-101.0); MEAN PLATELET VOLUME 9.5 fl (7.4-10.4); MONOCYTE # 1.1 10^3/ul (0.3-0.9); MONOCYTES % 7.2 % (0.0-11.0); NEUTROPHIL # 13.2 10^3/ul (1.6-7.5); NEUTROPHILS % 90.6 % (39.0-77.0); NUCLEATED RED BLOOD CELLS # 1.9 10^3/ul (0.0-0.0); NUCLEATED RED BLOOD CELLS% 13.3 /100WBC (0.0-0.0); PLATELET COUNT 581 10^3/UL (140-415); RED BLOOD COUNT 3.87 10^6/ul (4.20-5.40); RED CELL DISTRIBUTION WIDTH 16.7 % (11.5-14.5)
[2019-03-15] MEDS ORDERED: LINEZOLID 600 MG/300 ML (PMX) 300 ML IVPB (01:30)
[2019-03-15] MEDS: SOD CHLORIDE 0.9% 1,000 ML IV ×2 (01:34→15:05)
[2019-03-15 01:39] LABS: POSITIVE DIFF @See below
[2019-03-15] MEDS: MEROPENEM 1 GM/50ML(PMX) 50 ML IVPB ×3 (01:40→17:27)
[2019-03-15 01:42] LABS: ANION GAP 6 (5-13); BLOOD UREA NITROGEN 20 mg/dl (7-20); CARBON DIOXIDE 30 mmol/L (21-31); CHLORIDE 103 mmol/L (97-110); CREATININE 0.59 mg/dl (0.44-1.00); Estimated GFR > 60 mL/min (>60); GLUCOSE 133 mg/dl (70-220); SODIUM 139 mmol/L (135-144)
[2019-03-15 01:43] LABS: INR 1.06; MAGNESIUM 2.2 mg/dl (1.7-2.5); PROTIME 13.9 Sec (11.9-14.9); PT RATIO 1.1
[2019-03-15 01:43] LABS: PHOSPHORUS 2.8 mg/dl (2.5-4.9)
[2019-03-15 01:44] LABS: PARTIAL THROMBOPLASTIN TIME 27.5 Sec (23.0-35.0)
[2019-03-15 01:53] LABS: LACTIC ACID 2.7 mmol/L (0.5-2.0)
[2019-03-15] MEDS: PANTOPRAZOLE (EC) 40 MG TAB PO ×2 (05:35→17:27)
[2019-03-15] MEDS: LEVOFLOXACIN 750 MG TABLET PO (05:35)
[2019-03-15] MEDS: HYDROmorphONE 1 MG/ML SYG IV ×3 (06:17→21:55)
[2019-03-15] MEDS: LACTOBACILLUS RHAMNOSUS CAP PO ×3 (08:00→17:27)
[2019-03-15] MEDS: CREON (24K-76K-120K) 1 CAP PO ×3 (08:00→17:27)
[2019-03-15] MEDS: AZATHIOPRINE 50 MG TAB PO (08:58)
[2019-03-15] MEDS: SUCRALFATE (100 MG/ML) 10ML CUP PO ×4 (08:58→20:24)
[2019-03-15] MEDS: CYCLOBENZAPRINE 10 MG TAB PO ×3 (08:59→20:26)
[2019-03-15] MEDS: METHYLPREDNISOLONE 40 MG INJ IV ×2 (08:59→20:23)
[2019-03-15] MEDS: CALCIUM/VITAMIN D (500/200) TAB PO (09:00)
[2019-03-15] MEDS: COLCHICINE 0.6 MG TAB PO ×2 (09:00→20:24)
[2019-03-15] MEDS: AMOXICILLIN 500 MG CAP PO ×2 (09:00→20:25)
[2019-03-15] MEDS: NADOLOL 40 MG TAB PO ×2 (09:00→20:25)
[2019-03-15] MEDS: AMLODIPINE 10 MG TAB PO ×2 (09:01→20:26)
[2019-03-15] MEDS: HEPARIN 5,000 UNIT/1 ML VIAL SC (09:05)
[2019-03-15 09:08] LABS: LACTIC ACID 1.8 mmol/L (0.5-2.0)
[2019-03-15] MEDS ORDERED: HEPARIN 1000 UNITS/ML 10 ML INJ IV (13:00)
[2019-03-15] MEDS: HEPARIN 1000 UNITS/ML 10 ML INJ IV (14:51)
[2019-03-15] MEDS: HEPARIN 25000 UNITS/250 ML 250 ML IV (14:52)
[2019-03-15 15:02] LABS: INR 1.14; PROTIME 14.7 Sec (11.9-14.9); PT RATIO 1.1
[2019-03-15 15:03] LABS: PARTIAL THROMBOPLASTIN TIME 28.2 Sec (23.0-35.0)
[2019-03-15 22:39] LABS: PARTIAL THROMBOPLASTIN TIME 171.8 Sec (23.0-35.0)
[2019-03-16] MEDS: MEROPENEM 1 GM/50ML(PMX) 50 ML IVPB ×3 (01:52→17:29)
[2019-03-16] MEDS: SOD CHLORIDE 0.9% 1,000 ML IV ×3 (02:22→17:29)
[2019-03-16 05:31] LABS: ABNORMAL IP MESSAGE 1; HEMATOCRIT 30.8 % (37.0-47.0); HEMOGLOBIN 9.4 g/dl (12.0-16.0); MEAN CORPUSCULAR HEMOGLOBIN 25.5 pg (29.0-33.0); MEAN CORPUSCULAR HGB CONC 30.5 g/dl (32.0-37.0); MEAN CORPUSCULAR VOLUME 83.5 fl (82.0-101.0); NUCLEATED RED BLOOD CELLS% 11.9 /100WBC (0.0-0.0); PLATELET COUNT 508 10^3/UL (140-415); RED BLOOD COUNT 3.69 10^6/ul (4.20-5.40)
[2019-03-16 05:31] LABS: WHITE BLOOD COUNT 15.7 10^3/ul (4.8-10.8)
[2019-03-16] MEDS: PANTOPRAZOLE (EC) 40 MG TAB PO ×2 (05:43→17:29)
[2019-03-16] MEDS: LEVOFLOXACIN 750 MG TABLET PO (05:43)
[2019-03-16 05:49] LABS: POSITIVE DIFF @See below
[2019-03-16 05:50] LABS: ADD MAN DIFF? YES
[2019-03-16 05:52] LABS: ALANINE AMINOTRANSFERASE 36 IU/L (13-69); ALBUMIN 2.8 g/dl (3.3-4.9); ALBUMIN/GLOBULIN RATIO 0.87; ALKALINE PHOSPHATASE 97 IU/L (42-121); ANION GAP 5 (5-13); ASPARTATE AMINO TRANSFERASE 26 IU/L (15-46); BILIRUBIN,INDIRECT 0.7 mg/dl (0-1.1); BILIRUBIN,TOTAL 0.7 mg/dl (0.2-1.3); BLOOD UREA NITROGEN 14 mg/dl (7-20); CALCIUM 8.7 mg/dl (8.4-10.2); CARBON DIOXIDE 29 mmol/L (21-31); CHLORIDE 103 mmol/L (97-110); Estimated GFR > 60 mL/min (>60); GLUCOSE 104 mg/dl (70-220); SODIUM 137 mmol/L (135-144)
[2019-03-16 05:53] LABS: PHOSPHORUS 3.7 mg/dl (2.5-4.9)
[2019-03-16 05:53] LABS: MAGNESIUM 2.1 mg/dl (1.7-2.5)
[2019-03-16 06:25] LABS: PARTIAL THROMBOPLASTIN TIME 79.8 Sec (23.0-35.0)
[2019-03-16] MEDS: HEPARIN 25000 UNITS/250 ML 250 ML IV ×2 (06:53→12:13)
[2019-03-16] MEDS: LACTOBACILLUS RHAMNOSUS CAP PO ×3 (08:00→17:30)
[2019-03-16] MEDS: CREON (24K-76K-120K) 1 CAP PO ×3 (08:00→17:30)
[2019-03-16 08:02] LABS: ANISOCYTOSIS 2+ (0-0); BAND NEUTROPHILS #M 0.3 10^3/ul (0.0-0.6); BAND NEUTROPHILS % (M) 2 % (0-4); BURR CELLS 1+ (0-0); EOSINOPHILS % (M) 2 % (0-7); ERYTHROBLAST% (NRBC) (M) 24 % (0-0); GIANT THROMBO% (M) 9 % (0-0); HYPOCHROMASIA 3+ (0-0); LYMPHOCYTES #M 0.6 10^3/ul (0.8-2.9); LYMPHOCYTES % (M) 4 % (15-51); MONOCYTE #M 0.7 10^3/ul (0.3-0.9); MONOCYTES % (M) 5 % (0-11); MYELOCYTES #M 0.3 10^3/ul (0.0-0.0); MYELOCYTES % (M) 2 % (0-0); OVALOCYTES 1+ (0-0); PLATELET ESTIMATE NORMAL; POIKILOCYTOSIS 2+ (0-0); POLYCHROMASIA 2+ (0-0); SEG NEUT #M 13.4 10^3/ul (1.6-7.5); SEGMENTED NEUTROPHILS (M) % 85 % (39-77); SMUDGE%M 7 % (0-0); SPHEROCYTES 1+ (0-0); TARGET CELLS 1+ (0-0)
[2019-03-16] MEDS: HYDROmorphONE 1 MG/ML SYG IV ×2 (08:06→20:51)
[2019-03-16] MEDS: ONDANSETRON 4 MG INJ IV ×2 (08:25→20:51)
[2019-03-16] MEDS: METHYLPREDNISOLONE 40 MG INJ IV ×2 (08:25→20:36)
[2019-03-16] MEDS: SUCRALFATE (100 MG/ML) 10ML CUP PO ×4 (09:32→20:37)
[2019-03-16] MEDS: AZATHIOPRINE 50 MG TAB PO (09:33)
[2019-03-16] MEDS: CYCLOBENZAPRINE 10 MG TAB PO ×3 (09:33→20:46)
[2019-03-16] MEDS: NADOLOL 40 MG TAB PO ×2 (09:33→20:45)
[2019-03-16] MEDS: COLCHICINE 0.6 MG TAB PO ×2 (09:33→20:39)
[2019-03-16] MEDS: CALCIUM/VITAMIN D (500/200) TAB PO (09:34)
[2019-03-16] MEDS: AMLODIPINE 10 MG TAB PO ×2 (09:34→21:00)
[2019-03-16 09:41] LABS: PROCALCITONIN 0.04 ng/mL (0.00-0.10)
[2019-03-16 11:43] LABS: PARTIAL THROMBOPLASTIN TIME 103.8 Sec (23.0-35.0)
[2019-03-16 18:58] LABS: PARTIAL THROMBOPLASTIN TIME 76.9 Sec (23.0-35.0)
[2019-03-17 01:14] LABS: PARTIAL THROMBOPLASTIN TIME 69.3 Sec (23.0-35.0)
[2019-03-17] MEDS: MEROPENEM 1 GM/50ML(PMX) 50 ML IVPB ×3 (01:55→17:44)
[2019-03-17] MEDS: HEPARIN 25000 UNITS/250 ML 250 ML IV (03:40)
[2019-03-17] MEDS: PANTOPRAZOLE (EC) 40 MG TAB PO ×2 (05:25→17:44)
[2019-03-17] MEDS: SOD CHLORIDE 0.9% 1,000 ML IV ×2 (05:26→18:48)
[2019-03-17] MEDS: HYDROmorphONE 1 MG/ML SYG IV ×3 (05:35→20:40)
[2019-03-17 06:01] LABS: ADD MAN DIFF? NO
[2019-03-17 06:07] LABS: WHITE BLOOD COUNT 14.1 10^3/ul (4.8-10.8)
[2019-03-17 06:08] LABS: ABNORMAL IP MESSAGE 1; BASOPHILS % 0.1 % (0.0-2.0); EOSINOPHILS # 0.3 10^3/ul (0.0-0.5); HEMATOCRIT 30.8 % (37.0-47.0); HEMOGLOBIN 9.4 g/dl (12.0-16.0); LYMPHOCYTES # 0.3 10^3/ul (0.8-2.9); LYMPHOCYTES % 2.3 % (15.0-51.0); MEAN CORPUSCULAR HEMOGLOBIN 25.1 pg (29.0-33.0); MEAN CORPUSCULAR HGB CONC 30.5 g/dl (32.0-37.0); MEAN CORPUSCULAR VOLUME 82.1 fl (82.0-101.0); MEAN PLATELET VOLUME 9.9 fl (7.4-10.4); MONOCYTES % 13.9 % (0.0-11.0); NEUTROPHIL # 11.5 10^3/ul (1.6-7.5); NEUTROPHILS % 80.9 % (39.0-77.0); NUCLEATED RED BLOOD CELLS # 1.4 10^3/ul (0.0-0.0); NUCLEATED RED BLOOD CELLS% 9.8 /100WBC (0.0-0.0); PLATELET COUNT 475 10^3/UL (140-415); RED BLOOD COUNT 3.75 10^6/ul (4.20-5.40); RED CELL DISTRIBUTION WIDTH 17.1 % (11.5-14.5)
[2019-03-17 06:19] LABS: POSITIVE DIFF @See below
[2019-03-17 06:28] LABS: MAGNESIUM 2.1 mg/dl (1.7-2.5)
[2019-03-17 06:28] LABS: PHOSPHORUS 3.6 mg/dl (2.5-4.9)
[2019-03-17 06:50] LABS: ALANINE AMINOTRANSFERASE 32 IU/L (13-69); ALBUMIN 2.7 g/dl (3.3-4.9); ALBUMIN/GLOBULIN RATIO 0.84; ALKALINE PHOSPHATASE 96 IU/L (42-121); ANION GAP 4 (5-13); ASPARTATE AMINO TRANSFERASE 28 IU/L (15-46); BILIRUBIN,INDIRECT 0.8 mg/dl (0-1.1); BILIRUBIN,TOTAL 0.8 mg/dl (0.2-1.3); BLOOD UREA NITROGEN 14 mg/dl (7-20); CALCIUM 8.7 mg/dl (8.4-10.2); CARBON DIOXIDE 28 mmol/L (21-31); CHLORIDE 104 mmol/L (97-110); CREATININE 0.51 mg/dl (0.44-1.00); Estimated GFR > 60 mL/min (>60); GLUCOSE 100 mg/dl (70-220); SODIUM 136 mmol/L (135-144); TOTAL PROTEIN 5.9 g/dl (6.1-8.1)
[2019-03-17 07:28] LABS: PROCALCITONIN 0.04 ng/mL (0.00-0.10)
[2019-03-17] MEDS: CREON (24K-76K-120K) 1 CAP PO ×3 (08:42→17:44)
[2019-03-17] MEDS: CYCLOBENZAPRINE 10 MG TAB PO ×3 (08:42→20:24)
[2019-03-17] MEDS: COLCHICINE 0.6 MG TAB PO ×2 (08:42→20:24)
[2019-03-17] MEDS: SUCRALFATE (100 MG/ML) 10ML CUP PO ×4 (08:42→20:24)
[2019-03-17] MEDS: AZATHIOPRINE 50 MG TAB PO (08:42)
[2019-03-17] MEDS: LACTOBACILLUS RHAMNOSUS CAP PO ×3 (08:42→17:44)
[2019-03-17] MEDS: CALCIUM/VITAMIN D (500/200) TAB PO (08:42)
[2019-03-17] MEDS: NADOLOL 40 MG TAB PO ×2 (08:43→20:03)
[2019-03-17] MEDS: METHYLPREDNISOLONE 40 MG INJ IV ×2 (08:44→20:24)
[2019-03-17] MEDS: AMLODIPINE 10 MG TAB PO ×2 (08:44→20:25)
[2019-03-18] MEDS: MEROPENEM 1 GM/50ML(PMX) 50 ML IVPB ×3 (01:30→16:56)
[2019-03-18] MEDS: HEPARIN 25000 UNITS/250 ML 250 ML IV ×2 (01:33→23:10)
[2019-03-18] MEDS: SOD CHLORIDE 0.9% 1,000 ML IV ×3 (04:11→18:33)
[2019-03-18] MEDS: HYDROmorphONE 1 MG/ML SYG IV ×3 (05:13→23:06)
[2019-03-18] MEDS: PANTOPRAZOLE (EC) 40 MG TAB PO ×2 (05:13→17:23)
[2019-03-18 06:05] LABS: ADD MAN DIFF? NO
[2019-03-18 06:15] LABS: ABNORMAL IP MESSAGE 1; BASOPHILS % 0.1 % (0.0-2.0); EOSINOPHILS # 0.4 10^3/ul (0.0-0.5); EOSINOPHILS % 2.9 % (0.0-7.0); HEMATOCRIT 32.2 % (37.0-47.0); HEMOGLOBIN 9.9 g/dl (12.0-16.0); LYMPHOCYTES # 0.5 10^3/ul (0.8-2.9); LYMPHOCYTES % 3.9 % (15.0-51.0); MEAN CORPUSCULAR HEMOGLOBIN 25.3 pg (29.0-33.0); MEAN CORPUSCULAR HGB CONC 30.7 g/dl (32.0-37.0); MEAN CORPUSCULAR VOLUME 82.4 fl (82.0-101.0); MEAN PLATELET VOLUME 10.1 fl (7.4-10.4); MONOCYTE # 2.1 10^3/ul (0.3-0.9); MONOCYTES % 15.4 % (0.0-11.0); NEUTROPHIL # 10.3 10^3/ul (1.6-7.5); NEUTROPHILS % 76.9 % (39.0-77.0); NUCLEATED RED BLOOD CELLS # 0.8 10^3/ul (0.0-0.0); NUCLEATED RED BLOOD CELLS% 5.9 /100WBC (0.0-0.0); PLATELET COUNT 465 10^3/UL (140-415); RED BLOOD COUNT 3.91 10^6/ul (4.20-5.40); RED CELL DISTRIBUTION WIDTH 17.3 % (11.5-14.5)
[2019-03-18 06:15] LABS: WHITE BLOOD COUNT 13.4 10^3/ul (4.8-10.8)
[2019-03-18 06:22] LABS: POSITIVE DIFF @See below
[2019-03-18 06:31] LABS: PARTIAL THROMBOPLASTIN TIME 73.6 Sec (23.0-35.0)
[2019-03-18 06:47] LABS: MAGNESIUM 2.1 mg/dl (1.7-2.5)
[2019-03-18 06:47] LABS: PHOSPHORUS 3.7 mg/dl (2.5-4.9)
[2019-03-18 07:09] LABS: ANION GAP 6 (5-13); BLOOD UREA NITROGEN 13 mg/dl (7-20); CALCIUM 8.6 mg/dl (8.4-10.2); CARBON DIOXIDE 28 mmol/L (21-31); CHLORIDE 103 mmol/L (97-110); CREATININE 0.49 mg/dl (0.44-1.00); Estimated GFR > 60 mL/min (>60); GLUCOSE 95 mg/dl (70-220); POTASSIUM 4.3 mmol/L (3.5-5.1); SODIUM 137 mmol/L (135-144)
[2019-03-18] MEDS: SUCRALFATE (100 MG/ML) 10ML CUP PO ×4 (08:34→20:17)
[2019-03-18] MEDS: METHYLPREDNISOLONE 40 MG INJ IV ×2 (08:34→20:17)
[2019-03-18] MEDS: CYCLOBENZAPRINE 10 MG TAB PO ×3 (08:35→20:17)
[2019-03-18] MEDS: CREON (24K-76K-120K) 1 CAP PO ×3 (08:35→17:23)
[2019-03-18] MEDS: AZATHIOPRINE 50 MG TAB PO (08:35)
[2019-03-18] MEDS: LACTOBACILLUS RHAMNOSUS CAP PO ×3 (08:35→17:23)
[2019-03-18] MEDS: CALCIUM/VITAMIN D (500/200) TAB PO (08:35)
[2019-03-18] MEDS: COLCHICINE 0.6 MG TAB PO ×2 (08:35→20:17)
[2019-03-18] MEDS: AMLODIPINE 10 MG TAB PO ×2 (08:36→20:18)
[2019-03-18] MEDS: NADOLOL 40 MG TAB PO ×2 (08:36→20:17)
[2019-03-19] MEDS: MEROPENEM 1 GM/50ML(PMX) 50 ML IVPB ×3 (01:31→17:14)
[2019-03-19] MEDS: SOD CHLORIDE 0.9% 1,000 ML IV ×3 (03:42→17:14)
[2019-03-19] MEDS: PANTOPRAZOLE (EC) 40 MG TAB PO ×2 (05:27→17:14)
[2019-03-19 06:10] LABS: ADD MAN DIFF? NO
[2019-03-19 06:21] LABS: WHITE BLOOD COUNT 12.8 10^3/ul (4.8-10.8)
[2019-03-19 06:21] LABS: ABNORMAL IP MESSAGE 1; BASOPHILS % 0.1 % (0.0-2.0); EOSINOPHILS # 0.2 10^3/ul (0.0-0.5); EOSINOPHILS % 1.7 % (0.0-7.0); HEMATOCRIT 32.3 % (37.0-47.0); HEMOGLOBIN 9.8 g/dl (12.0-16.0); LYMPHOCYTES # 0.8 10^3/ul (0.8-2.9); LYMPHOCYTES % 6.3 % (15.0-51.0); MEAN CORPUSCULAR HEMOGLOBIN 25.1 pg (29.0-33.0); MEAN CORPUSCULAR HGB CONC 30.3 g/dl (32.0-37.0); MEAN CORPUSCULAR VOLUME 82.6 fl (82.0-101.0); MEAN PLATELET VOLUME 10.3 fl (7.4-10.4); NEUTROPHIL # 9.6 10^3/ul (1.6-7.5); NEUTROPHILS % 74.6 % (39.0-77.0); NUCLEATED RED BLOOD CELLS # 0.4 10^3/ul (0.0-0.0); NUCLEATED RED BLOOD CELLS% 3.4 /100WBC (0.0-0.0); PLATELET COUNT 447 10^3/UL (140-415); RED BLOOD COUNT 3.91 10^6/ul (4.20-5.40); RED CELL DISTRIBUTION WIDTH 17.6 % (11.5-14.5)
[2019-03-19 06:26] LABS: POSITIVE DIFF @See below
[2019-03-19 06:39] LABS: PARTIAL THROMBOPLASTIN TIME 75.6 Sec (23.0-35.0)
[2019-03-19] MEDS: HYDROmorphONE 1 MG/ML SYG IV ×3 (06:42→21:15)
[2019-03-19 06:53] LABS: ANION GAP 6 (5-13); BLOOD UREA NITROGEN 13 mg/dl (7-20); CALCIUM 8.6 mg/dl (8.4-10.2); CARBON DIOXIDE 29 mmol/L (21-31); CHLORIDE 102 mmol/L (97-110); CREATININE 0.45 mg/dl (0.44-1.00); Estimated GFR > 60 mL/min (>60); GLUCOSE 91 mg/dl (70-220); POTASSIUM 4.2 mmol/L (3.5-5.1); SODIUM 137 mmol/L (135-144)
[2019-03-19 08:05] LABS: PHOSPHORUS 3.7 mg/dl (2.5-4.9)
[2019-03-19 08:05] LABS: MAGNESIUM 1.9 mg/dl (1.7-2.5)
[2019-03-19] MEDS: AZATHIOPRINE 50 MG TAB PO (08:29)
[2019-03-19] MEDS: LACTOBACILLUS RHAMNOSUS CAP PO ×3 (08:29→17:14)
[2019-03-19] MEDS: SUCRALFATE (100 MG/ML) 10ML CUP PO ×4 (08:29→21:13)
[2019-03-19] MEDS: CREON (24K-76K-120K) 1 CAP PO ×3 (08:29→17:14)
[2019-03-19] MEDS: CYCLOBENZAPRINE 10 MG TAB PO ×3 (08:29→21:14)
[2019-03-19] MEDS: CALCIUM/VITAMIN D (500/200) TAB PO (08:30)
[2019-03-19] MEDS: METHYLPREDNISOLONE 40 MG INJ IV ×2 (08:30→21:13)
[2019-03-19] MEDS: AMLODIPINE 10 MG TAB PO ×2 (08:30→21:14)
[2019-03-19] MEDS: COLCHICINE 0.6 MG TAB PO ×2 (08:30→21:14)
[2019-03-19] MEDS: NADOLOL 40 MG TAB PO ×2 (08:34→21:14)
[2019-03-19] MEDS: HEPARIN 25000 UNITS/250 ML 250 ML IV (20:58)
[2019-03-20] MEDS: MEROPENEM 1 GM/50ML(PMX) 50 ML IVPB ×3 (01:42→17:48)
[2019-03-20] MEDS: SOD CHLORIDE 0.9% 1,000 ML IV ×2 (05:47→18:36)
[2019-03-20] MEDS: PANTOPRAZOLE (EC) 40 MG TAB PO ×2 (05:47→17:46)
[2019-03-20] MEDS: HYDROmorphONE 1 MG/ML SYG IV ×3 (05:47→22:39)
[2019-03-20 06:20] LABS: ADD MAN DIFF? NO
[2019-03-20 06:28] LABS: WHITE BLOOD COUNT 12.5 10^3/ul (4.8-10.8)
[2019-03-20 06:28] LABS: ABNORMAL IP MESSAGE 1; BASOPHILS % 0.1 % (0.0-2.0); EOSINOPHILS # 0.1 10^3/ul (0.0-0.5); EOSINOPHILS % 0.5 % (0.0-7.0); HEMATOCRIT 30.2 % (37.0-47.0); HEMOGLOBIN 9.2 g/dl (12.0-16.0); LYMPHOCYTES # 0.5 10^3/ul (0.8-2.9); LYMPHOCYTES % 4.2 % (15.0-51.0); MEAN CORPUSCULAR HEMOGLOBIN 25.1 pg (29.0-33.0); MEAN CORPUSCULAR HGB CONC 30.5 g/dl (32.0-37.0); MEAN CORPUSCULAR VOLUME 82.3 fl (82.0-101.0); MEAN PLATELET VOLUME 10.2 fl (7.4-10.4); MONOCYTE # 1.1 10^3/ul (0.3-0.9); MONOCYTES % 9.1 % (0.0-11.0); NEUTROPHIL # 10.6 10^3/ul (1.6-7.5); NEUTROPHILS % 84.7 % (39.0-77.0); NUCLEATED RED BLOOD CELLS # 0.2 10^3/ul (0.0-0.0); NUCLEATED RED BLOOD CELLS% 1.7 /100WBC (0.0-0.0); PLATELET COUNT 417 10^3/UL (140-415); RED BLOOD COUNT 3.67 10^6/ul (4.20-5.40); RED CELL DISTRIBUTION WIDTH 17.6 % (11.5-14.5)
[2019-03-20 06:41] LABS: POSITIVE DIFF @See below
[2019-03-20 06:45] LABS: INR 1.27; PT RATIO 1.3
[2019-03-20 07:00] LABS: PARTIAL THROMBOPLASTIN TIME 80.9 Sec (23.0-35.0)
[2019-03-20 07:03] LABS: ANION GAP 8 (5-13); BLOOD UREA NITROGEN 13 mg/dl (7-20); CARBON DIOXIDE 24 mmol/L (21-31); CHLORIDE 105 mmol/L (97-110); CREATININE 0.38 mg/dl (0.44-1.00); Estimated GFR > 60 mL/min (>60); GLUCOSE 85 mg/dl (70-220); SODIUM 137 mmol/L (135-144)
[2019-03-20 07:13] LABS: MAGNESIUM 1.8 mg/dl (1.7-2.5)
[2019-03-20 07:13] LABS: PHOSPHORUS 3.6 mg/dl (2.5-4.9)
[2019-03-20] MEDS: NADOLOL 40 MG TAB PO ×2 (08:47→21:00)
[2019-03-20] MEDS: METHYLPREDNISOLONE 40 MG INJ IV ×2 (08:53→22:28)
[2019-03-20] MEDS: COLCHICINE 0.6 MG TAB PO ×2 (08:54→22:28)
[2019-03-20] MEDS: CREON (24K-76K-120K) 1 CAP PO ×3 (08:54→17:47)
[2019-03-20] MEDS: CALCIUM/VITAMIN D (500/200) TAB PO (08:55)
[2019-03-20] MEDS: LACTOBACILLUS RHAMNOSUS CAP PO ×3 (08:55→17:46)
[2019-03-20] MEDS: AZATHIOPRINE 50 MG TAB PO (08:56)
[2019-03-20] MEDS: AMLODIPINE 10 MG TAB PO ×2 (08:56→22:28)
[2019-03-20] MEDS: CYCLOBENZAPRINE 10 MG TAB PO ×3 (08:56→22:29)
[2019-03-20] MEDS: SUCRALFATE (100 MG/ML) 10ML CUP PO ×4 (08:57→22:28)
[2019-03-20] MEDS: ONDANSETRON 4 MG INJ IV ×2 (11:57→22:38)
[2019-03-20] MEDS: HEPARIN 25000 UNITS/250 ML 250 ML IV (17:46)
[2019-03-20] MEDS: IOHEXOL 14.3 MG(I)/ML (ADULT) BTL PO (18:38)
[2019-03-20] MEDS ORDERED: SOD CHLORIDE 0.9% 100 ML (20:03)
[2019-03-20] MEDS ORDERED: IOHEXOL 300MG/ML 150 ML BTL (20:03)
[2019-03-21] MEDS: MEROPENEM 1 GM/50ML(PMX) 50 ML IVPB ×3 (01:44→16:46)
[2019-03-21] MEDS: PANTOPRAZOLE (EC) 40 MG TAB PO ×2 (05:25→16:45)
[2019-03-21] MEDS: ONDANSETRON 4 MG INJ IV (06:18)
[2019-03-21] MEDS: HYDROmorphONE 1 MG/ML SYG IV ×3 (06:18→22:13)
[2019-03-21 06:38] LABS: INR 1.25; PARTIAL THROMBOPLASTIN TIME 24.7 Sec (23.0-35.0); PROTIME 15.8 Sec (11.9-14.9); PT RATIO 1.2
[2019-03-21 09:10] LABS: PARTIAL THROMBOPLASTIN TIME 63.9 Sec (23.0-35.0)
[2019-03-21] MEDS: AMLODIPINE 10 MG TAB PO ×2 (09:32→22:14)
[2019-03-21] MEDS: NADOLOL 40 MG TAB PO ×2 (09:33→21:00)
[2019-03-21] MEDS: CREON (24K-76K-120K) 1 CAP PO ×3 (09:33→16:45)
[2019-03-21] MEDS: LACTOBACILLUS RHAMNOSUS CAP PO ×3 (09:33→16:45)
[2019-03-21] MEDS: AZATHIOPRINE 50 MG TAB PO (09:40)
[2019-03-21] MEDS: CALCIUM/VITAMIN D (500/200) TAB PO (09:45)
[2019-03-21] MEDS: COLCHICINE 0.6 MG TAB PO ×2 (09:46→22:13)
[2019-03-21] MEDS: CYCLOBENZAPRINE 10 MG TAB PO ×3 (09:46→22:14)
[2019-03-21] MEDS: METHYLPREDNISOLONE 40 MG INJ IV ×2 (09:47→22:11)
[2019-03-21] MEDS: SUCRALFATE (100 MG/ML) 10ML CUP PO ×4 (09:51→22:11)
[2019-03-21] MEDS: HEPARIN 25000 UNITS/250 ML 250 ML IV (13:56)
[2019-03-21 14:16] LABS: ADD MAN DIFF? NO
[2019-03-21 14:17] LABS: WHITE BLOOD COUNT 11.8 10^3/ul (4.8-10.8)
[2019-03-21 14:17] LABS: ABNORMAL IP MESSAGE 1; BASOPHILS % 0.1 % (0.0-2.0); EOSINOPHILS # 0.1 10^3/ul (0.0-0.5); EOSINOPHILS % 0.7 % (0.0-7.0); HEMATOCRIT 35.4 % (37.0-47.0); HEMOGLOBIN 10.6 g/dl (12.0-16.0); LYMPHOCYTES # 0.2 10^3/ul (0.8-2.9); MEAN CORPUSCULAR HEMOGLOBIN 24.9 pg (29.0-33.0); MEAN CORPUSCULAR HGB CONC 29.9 g/dl (32.0-37.0); MEAN CORPUSCULAR VOLUME 83.3 fl (82.0-101.0); MEAN PLATELET VOLUME 10.3 fl (7.4-10.4); MONOCYTE # 0.7 10^3/ul (0.3-0.9); MONOCYTES % 5.9 % (0.0-11.0); NEUTROPHIL # 10.7 10^3/ul (1.6-7.5); NEUTROPHILS % 90.5 % (39.0-77.0); NUCLEATED RED BLOOD CELLS # 0.2 10^3/ul (0.0-0.0); NUCLEATED RED BLOOD CELLS% 1.4 /100WBC (0.0-0.0); PLATELET COUNT 440 10^3/UL (140-415); RED BLOOD COUNT 4.25 10^6/ul (4.20-5.40)
[2019-03-21 14:21] LABS: POSITIVE DIFF @See below
[2019-03-21 14:55] LABS: ANION GAP 10 (5-13); BLOOD UREA NITROGEN 14 mg/dl (7-20); CALCIUM 9.2 mg/dl (8.4-10.2); CARBON DIOXIDE 27 mmol/L (21-31); CHLORIDE 99 mmol/L (97-110); CREATININE 0.49 mg/dl (0.44-1.00); Estimated GFR > 60 mL/min (>60); GLUCOSE 81 mg/dl (70-220); POTASSIUM 4.3 mmol/L (3.5-5.1); SODIUM 136 mmol/L (135-144)
[2019-03-21] MEDS ORDERED: TPN 1,000 ML IV (14:58)
[2019-03-21 15:58] LABS: ALANINE AMINOTRANSFERASE 33 IU/L (13-69); ALBUMIN 3.5 g/dl (3.3-4.9); ALBUMIN/GLOBULIN RATIO 1.09; ALKALINE PHOSPHATASE 111 IU/L (42-121); ANION GAP 8 (5-13); ASPARTATE AMINO TRANSFERASE 28 IU/L (15-46); BILIRUBIN,INDIRECT 1.1 mg/dl (0-1.1); BILIRUBIN,TOTAL 1.1 mg/dl (0.2-1.3); BLOOD UREA NITROGEN 14 mg/dl (7-20); CALCIUM 9.5 mg/dl (8.4-10.2); CARBON DIOXIDE 28 mmol/L (21-31); CHLORIDE 99 mmol/L (97-110); CREATININE 0.59 mg/dl (0.44-1.00); Estimated GFR > 60 mL/min (>60); GLUCOSE 87 mg/dl (70-220); MAGNESIUM 1.9 mg/dl (1.7-2.5); POTASSIUM 4.4 mmol/L (3.5-5.1); SODIUM 135 mmol/L (135-144); TOTAL PROTEIN 6.7 g/dl (6.1-8.1); TRIGLYCERIDES 102 mg/dl (0-149)
[2019-03-21] MEDS: ACCU-CHEK XX ×2 (16:46→21:00)
[2019-03-21 18:58] LABS: PARTIAL THROMBOPLASTIN TIME 90.1 Sec (23.0-35.0)
[2019-03-21 20:37] LABS: PREALBUMIN 14.3 mg/dl (17.6-36.0)
[2019-03-22] MEDS: ACCU-CHEK XX ×6 (00:45→21:32)
[2019-03-22] MEDS: MEROPENEM 1 GM/50ML(PMX) 50 ML IVPB ×3 (01:12→17:49)
[2019-03-22] MEDS: HYDROmorphONE 1 MG/ML SYG IV ×4 (01:13→21:47)
[2019-03-22 01:29] LABS: PARTIAL THROMBOPLASTIN TIME 103.6 Sec (23.0-35.0)
[2019-03-22 05:10] LABS: ADD MAN DIFF? NO
[2019-03-22 05:14] LABS: WHITE BLOOD COUNT 13.4 10^3/ul (4.8-10.8)
[2019-03-22 05:14] LABS: ABNORMAL IP MESSAGE 1; BASOPHILS % 0.1 % (0.0-2.0); EOSINOPHILS % 0.2 % (0.0-7.0); HEMATOCRIT 30.9 % (37.0-47.0); HEMOGLOBIN 9.4 g/dl (12.0-16.0); LYMPHOCYTES # 0.4 10^3/ul (0.8-2.9); LYMPHOCYTES % 2.7 % (15.0-51.0); MEAN CORPUSCULAR HGB CONC 30.4 g/dl (32.0-37.0); MEAN CORPUSCULAR VOLUME 82.2 fl (82.0-101.0); MEAN PLATELET VOLUME 10.8 fl (7.4-10.4); MONOCYTE # 1.2 10^3/ul (0.3-0.9); MONOCYTES % 8.7 % (0.0-11.0); NEUTROPHIL # 11.7 10^3/ul (1.6-7.5); NEUTROPHILS % 87.4 % (39.0-77.0); NUCLEATED RED BLOOD CELLS # 0.2 10^3/ul (0.0-0.0); NUCLEATED RED BLOOD CELLS% 1.1 /100WBC (0.0-0.0); PLATELET COUNT 322 10^3/UL (140-415); RED BLOOD COUNT 3.76 10^6/ul (4.20-5.40); RED CELL DISTRIBUTION WIDTH 18.1 % (11.5-14.5)
[2019-03-22 05:16] LABS: POSITIVE DIFF @See below
[2019-03-22 05:35] LABS: ANION GAP 10 (5-13); BLOOD UREA NITROGEN 14 mg/dl (7-20); CALCIUM 8.7 mg/dl (8.4-10.2); CARBON DIOXIDE 27 mmol/L (21-31); CHLORIDE 100 mmol/L (97-110); CREATININE 0.43 mg/dl (0.44-1.00); Estimated GFR > 60 mL/min (>60); GLUCOSE 87 mg/dl (70-220); POTASSIUM 4.2 mmol/L (3.5-5.1); SODIUM 137 mmol/L (135-144)
[2019-03-22 05:52] LABS: MAGNESIUM 1.9 mg/dl (1.7-2.5)
[2019-03-22 05:52] LABS: PHOSPHORUS 4.1 mg/dl (2.5-4.9)
[2019-03-22] MEDS: PANTOPRAZOLE (EC) 40 MG TAB PO ×2 (06:03→17:49)
[2019-03-22 08:38] LABS: PARTIAL THROMBOPLASTIN TIME 100.5 Sec (23.0-35.0)
[2019-03-22] MEDS: NADOLOL 40 MG TAB PO ×2 (09:00→21:34)
[2019-03-22] MEDS: LACTOBACILLUS RHAMNOSUS CAP PO ×3 (09:06→17:49)
[2019-03-22] MEDS: SUCRALFATE (100 MG/ML) 10ML CUP PO ×4 (09:07→21:33)
[2019-03-22] MEDS: AZATHIOPRINE 50 MG TAB PO (09:07)
[2019-03-22] MEDS: CREON (24K-76K-120K) 1 CAP PO ×3 (09:07→17:49)
[2019-03-22] MEDS: CYCLOBENZAPRINE 10 MG TAB PO ×3 (09:07→21:33)
[2019-03-22] MEDS: COLCHICINE 0.6 MG TAB PO ×2 (09:07→21:33)
[2019-03-22] MEDS: AMLODIPINE 10 MG TAB PO ×2 (09:08→21:34)
[2019-03-22] MEDS: METHYLPREDNISOLONE 40 MG INJ IV ×2 (09:09→21:33)
[2019-03-22] MEDS: HEPARIN 25000 UNITS/250 ML 250 ML IV (09:18)
[2019-03-22] MEDS: ONDANSETRON 4 MG INJ IV ×2 (09:23→16:31)
[2019-03-22] MEDS: CALCIUM/VITAMIN D (500/200) TAB PO ×2 (10:00→12:24)
[2019-03-22] MEDS: TPN 1,000 ML IV (16:31)
[2019-03-22 20:44] LABS: PARTIAL THROMBOPLASTIN TIME 82.2 Sec (23.0-35.0)
[2019-03-23] MEDS: MEROPENEM 1 GM/50ML(PMX) 50 ML IVPB ×3 (01:15→17:53)
[2019-03-23] MEDS: ACCU-CHEK XX ×6 (01:15→21:00)
[2019-03-23] MEDS: HYDROmorphONE 1 MG/ML SYG IV ×3 (04:08→21:20)
[2019-03-23] MEDS: TPN 1,000 ML IV ×2 (04:10→17:53)
[2019-03-23 05:27] LABS: ADD MAN DIFF? NO
[2019-03-23 05:34] LABS: ABNORMAL IP MESSAGE 1; BASOPHILS % 0.1 % (0.0-2.0); EOSINOPHILS % 0.2 % (0.0-7.0); HEMATOCRIT 31.3 % (37.0-47.0); HEMOGLOBIN 9.5 g/dl (12.0-16.0); LYMPHOCYTES # 0.2 10^3/ul (0.8-2.9); LYMPHOCYTES % 1.2 % (15.0-51.0); MEAN CORPUSCULAR HEMOGLOBIN 25.2 pg (29.0-33.0); MEAN CORPUSCULAR HGB CONC 30.4 g/dl (32.0-37.0); MEAN PLATELET VOLUME 10.9 fl (7.4-10.4); MONOCYTE # 2.1 10^3/ul (0.3-0.9); MONOCYTES % 13.4 % (0.0-11.0); NEUTROPHILS % 83.9 % (39.0-77.0); NUCLEATED RED BLOOD CELLS # 0.2 10^3/ul (0.0-0.0); NUCLEATED RED BLOOD CELLS% 1.3 /100WBC (0.0-0.0); PLATELET COUNT 285 10^3/UL (140-415); RED BLOOD COUNT 3.77 10^6/ul (4.20-5.40); RED CELL DISTRIBUTION WIDTH 17.6 % (11.5-14.5)
[2019-03-23 05:34] LABS: WHITE BLOOD COUNT 15.4 10^3/ul (4.8-10.8)
[2019-03-23 05:53] LABS: POSITIVE DIFF @See below
[2019-03-23 05:54] LABS: ALANINE AMINOTRANSFERASE 25 IU/L (13-69); ALBUMIN 3.1 g/dl (3.3-4.9); ALBUMIN/GLOBULIN RATIO 0.96; ALKALINE PHOSPHATASE 81 IU/L (42-121); ANION GAP 10 (5-13); ASPARTATE AMINO TRANSFERASE 25 IU/L (15-46); BILIRUBIN,INDIRECT 1.1 mg/dl (0-1.1); BILIRUBIN,TOTAL 1.1 mg/dl (0.2-1.3); BLOOD UREA NITROGEN 18 mg/dl (7-20); CALCIUM 8.9 mg/dl (8.4-10.2); CARBON DIOXIDE 28 mmol/L (21-31); CHLORIDE 101 mmol/L (97-110); CREATININE 0.47 mg/dl (0.44-1.00); Estimated GFR > 60 mL/min (>60); GLUCOSE 140 mg/dl (70-220); SODIUM 139 mmol/L (135-144); TOTAL PROTEIN 6.3 g/dl (6.1-8.1)
[2019-03-23 05:59] LABS: LACTIC ACID 1.6 mmol/L (0.5-2.0)
[2019-03-23] MEDS: PANTOPRAZOLE (EC) 40 MG TAB PO ×2 (06:15→17:52)
[2019-03-23] MEDS: HEPARIN 25000 UNITS/250 ML 250 ML IV (06:31)
[2019-03-23] MEDS: HEPARIN 1000 UNITS/ML 10 ML INJ IV (06:36)
[2019-03-23 07:48] LABS: PHOSPHORUS 2.8 mg/dl (2.5-4.9)
[2019-03-23 08:06] LABS: ERYTHROCYTE SEDIMENTATION RATE 1 mm/Hr (0-20)
[2019-03-23] MEDS: METHYLPREDNISOLONE 40 MG INJ IV ×2 (08:57→21:18)
[2019-03-23] MEDS: COLCHICINE 0.6 MG TAB PO ×2 (08:58→21:19)
[2019-03-23] MEDS: AZATHIOPRINE 50 MG TAB PO (08:58)
[2019-03-23] MEDS: CREON (24K-76K-120K) 1 CAP PO ×3 (08:58→17:52)
[2019-03-23] MEDS: SUCRALFATE (100 MG/ML) 10ML CUP PO ×4 (08:58→21:18)
[2019-03-23] MEDS: CALCIUM/VITAMIN D (500/200) TAB PO (08:58)
[2019-03-23] MEDS: LACTOBACILLUS RHAMNOSUS CAP PO ×3 (08:58→17:52)
[2019-03-23] MEDS: CYCLOBENZAPRINE 10 MG TAB PO ×3 (08:58→21:19)
[2019-03-23] MEDS: NADOLOL 40 MG TAB PO ×2 (08:59→21:19)
[2019-03-23] MEDS: AMLODIPINE 10 MG TAB PO ×2 (08:59→21:19)
[2019-03-23 14:11] LABS: PARTIAL THROMBOPLASTIN TIME > 180.0 Sec (23.0-35.0)
[2019-03-23 16:00] LABS: PARTIAL THROMBOPLASTIN TIME 79.4 Sec (23.0-35.0)
[2019-03-24] MEDS: ACCU-CHEK XX ×5 (01:00→17:18)
[2019-03-24 01:12] LABS: PARTIAL THROMBOPLASTIN TIME > 180.0 Sec (23.0-35.0)
[2019-03-24 01:14] LABS: OCCULT BLOOD STOOL POSITIVE (NEGATIVE)
[2019-03-24] MEDS: MEROPENEM 1 GM/50ML(PMX) 50 ML IVPB (01:52)
[2019-03-24] MEDS: TPN 1,000 ML IV ×3 (03:30→16:00)
[2019-03-24] MEDS: HYDROmorphONE 1 MG/ML SYG IV ×3 (03:30→17:50)
[2019-03-24 03:37] LABS: ADD MAN DIFF? NO
[2019-03-24 03:41] LABS: ABNORMAL IP MESSAGE 1; BASOPHILS % 0.1 % (0.0-2.0); EOSINOPHILS % 0.1 % (0.0-7.0); HEMATOCRIT 30.8 % (37.0-47.0); HEMOGLOBIN 8.8 g/dl (12.0-16.0); LYMPHOCYTES # 0.2 10^3/ul (0.8-2.9); LYMPHOCYTES % 1.1 % (15.0-51.0); MEAN CORPUSCULAR HEMOGLOBIN 24.8 pg (29.0-33.0); MEAN CORPUSCULAR HGB CONC 28.6 g/dl (32.0-37.0); MEAN CORPUSCULAR VOLUME 86.8 fl (82.0-101.0); MEAN PLATELET VOLUME 10.9 fl (7.4-10.4); MONOCYTE # 1.2 10^3/ul (0.3-0.9); MONOCYTES % 7.6 % (0.0-11.0); NEUTROPHIL # 14.4 10^3/ul (1.6-7.5); NEUTROPHILS % 90.2 % (39.0-77.0); NUCLEATED RED BLOOD CELLS # 0.2 10^3/ul (0.0-0.0); NUCLEATED RED BLOOD CELLS% 0.9 /100WBC (0.0-0.0); PLATELET COUNT 294 10^3/UL (140-415); RED BLOOD COUNT 3.55 10^6/ul (4.20-5.40); RED CELL DISTRIBUTION WIDTH 18.6 % (11.5-14.5)
[2019-03-24 03:47] LABS: POSITIVE DIFF @See below
[2019-03-24 04:00] LABS: PHOSPHORUS 4.5 mg/dl (2.5-4.9)
[2019-03-24 05:03] LABS: ANION GAP 5 (5-13); BLOOD UREA NITROGEN 18 mg/dl (7-20); CALCIUM 8.7 mg/dl (8.4-10.2); CARBON DIOXIDE 27 mmol/L (21-31); CHLORIDE 106 mmol/L (97-110); CREATININE 0.39 mg/dl (0.44-1.00); Estimated GFR > 60 mL/min (>60); GLUCOSE 153 mg/dl (70-220); POTASSIUM 4.2 mmol/L (3.5-5.1); SODIUM 138 mmol/L (135-144)
[2019-03-24] MEDS: PANTOPRAZOLE (EC) 40 MG TAB PO ×2 (05:28→17:15)
[2019-03-24] MEDS: HEPARIN 25000 UNITS/250 ML 250 ML IV (05:37)
[2019-03-24] MEDS: NADOLOL 40 MG TAB PO (09:00)
[2019-03-24] MEDS: COLCHICINE 0.6 MG TAB PO (09:00)
[2019-03-24] MEDS: AZATHIOPRINE 50 MG TAB PO (09:00)
[2019-03-24] MEDS: SUCRALFATE (100 MG/ML) 10ML CUP PO ×3 (09:00→17:15)
[2019-03-24] MEDS: CYCLOBENZAPRINE 10 MG TAB PO ×2 (09:01→13:29)
[2019-03-24] MEDS: CALCIUM/VITAMIN D (500/200) TAB PO (09:01)
[2019-03-24] MEDS: AMLODIPINE 10 MG TAB PO (09:01)
[2019-03-24] MEDS: CREON (24K-76K-120K) 1 CAP PO ×3 (09:01→17:15)
[2019-03-24] MEDS: LACTOBACILLUS RHAMNOSUS CAP PO ×3 (09:01→17:15)
[2019-03-24] MEDS: METHYLPREDNISOLONE 40 MG INJ IV (09:02)
[2019-03-24 10:05] LABS: PARTIAL THROMBOPLASTIN TIME > 180.0 Sec (23.0-35.0)
[2019-03-24] MEDS: PIPER-TAZO 3.375 GM IV (PMX) 100 ML IVPB ×2 (11:58→18:00)
[2019-03-24 14:23] LABS: HEMATOCRIT 30.4 % (37.0-47.0); HEMOGLOBIN 8.4 g/dl (12.0-16.0)
[2019-03-24 14:50] LABS: PARTIAL THROMBOPLASTIN TIME 35.7 Sec (23.0-35.0)
[2019-03-24] MEDS ORDERED: FAT EMULSION 20% 250 ML IV (16:30)
[2019-03-24] MEDS: FAT EMULSION 20% 250 ML IV (17:10)
[2019-03-24 19:19] LABS: PARTIAL THROMBOPLASTIN TIME > 180.0 Sec (23.0-35.0)
== END 2019-03-24 19:00 | disposition short-term general hospital (02) | DRG 393 ==
LOC: 6WM 07:38 → FTE 02:32 → 6WM 03-08 13:35 → 2NE 03-13 16:55
PROC: 02H633Z Insertion of Infusion Device into Right Atrium, Percutaneous Approach (ICD-10-PCS; principal; 2019-03-21)
DX: K63.89 Other specified diseases of intestine (principal); I81 Portal vein thrombosis; K85.90 Acute pancreatitis without necrosis or infection, unspecified; J18.9 Pneumonia, unspecified organism; K55.8 Other vascular disorders of intestine; M32.12 Pericarditis in systemic lupus erythematosus; I31.3 Pericardial effusion (noninflammatory); J90 Pleural effusion, not elsewhere classified; K92.2 Gastrointestinal hemorrhage, unspecified; K74.60 Unspecified cirrhosis of liver; D47.3 Essential (hemorrhagic) thrombocythemia; D64.9 Anemia, unspecified; T38.0X5A Adverse effect of glucocorticoids and synthetic analogues, initial encounter; D72.829 Elevated white blood cell count, unspecified; D50.9 Iron deficiency anemia, unspecified; E66.9 Obesity, unspecified; F32.9 Major depressive disorder, single episode, unspecified; F41.9 Anxiety disorder, unspecified; I73.00 Raynaud's syndrome without gangrene; I10 Essential (primary) hypertension; M06.9 Rheumatoid arthritis, unspecified; M32.9 Systemic lupus erythematosus, unspecified; R19.7 Diarrhea, unspecified; R60.1 Generalized edema; Z89.021 Acquired absence of right finger(s); Z90.81 Acquired absence of spleen; Z68.34 Body mass index [BMI] 34.0-34.9, adult
CPT/HCPCS: 36415; 36569; 71045; 71250; 74176; 74177; 74181; 76604; 76705; 76937; 80048; 80053; 80061; 81001; 81025; 82150; 82270; 82787; 82962; 83036; 83605; 83690; 83735; 84100; 84134; 84145; 84439; 84443; 84478; 85014; 85018; 85025; 85610; 85651; 85730; 86038; 86140; 86200; 86226; 86430; 87045; 93306; 99285-25

== ENCOUNTER 2019-03-28 22:20 | Inpatient (IN) | payer OTHER ==
[2019-03-28] MEDS ORDERED: ACETAMINOPHEN 325 MG TAB PO (23:30)
[2019-03-28] MEDS ORDERED: NACL 0.9% 3 ML SYG IV (23:30)
[2019-03-28] MEDS: DOCUSATE SODIUM 100 MG CAP PO (23:35)
[2019-03-28] MEDS: HYDROmorphONE 0.5 MG/0.5 ML SYG IV (23:35)
[2019-03-28 23:40] LABS: ADD MAN DIFF? NO
[2019-03-28 23:43] LABS: WHITE BLOOD COUNT 17.8 10^3/ul (4.8-10.8)
[2019-03-28 23:43] LABS: ABNORMAL IP MESSAGE 1; BASOPHILS % 0.2 % (0.0-2.0); EOSINOPHILS # 0.2 10^3/ul (0.0-0.5); HEMATOCRIT 27.9 % (37.0-47.0); HEMOGLOBIN 8.4 g/dl (12.0-16.0); LYMPHOCYTES % 5.5 % (15.0-51.0); MEAN CORPUSCULAR HEMOGLOBIN 24.8 pg (29.0-33.0); MEAN CORPUSCULAR HGB CONC 30.1 g/dl (32.0-37.0); MEAN CORPUSCULAR VOLUME 82.3 fl (82.0-101.0); MEAN PLATELET VOLUME 10.7 fl (7.4-10.4); MONOCYTE # 2.2 10^3/ul (0.3-0.9); MONOCYTES % 12.6 % (0.0-11.0); NEUTROPHIL # 14.2 10^3/ul (1.6-7.5); NUCLEATED RED BLOOD CELLS # 0.3 10^3/ul (0.0-0.0); NUCLEATED RED BLOOD CELLS% 1.5 /100WBC (0.0-0.0); PLATELET COUNT 204 10^3/UL (140-415); RED BLOOD COUNT 3.39 10^6/ul (4.20-5.40); RED CELL DISTRIBUTION WIDTH 17.7 % (11.5-14.5)
[2019-03-28 23:47] LABS: POSITIVE DIFF @See below
[2019-03-28] MEDS: SOD CHLORIDE 0.9% 1,000 ML IV (23:50)
[2019-03-29 00:05] LABS: ALANINE AMINOTRANSFERASE 64 IU/L (13-69); ALBUMIN 2.8 g/dl (3.3-4.9); ALBUMIN/GLOBULIN RATIO 0.93; ALKALINE PHOSPHATASE 119 IU/L (42-121); ANION GAP 7 (5-13); ASPARTATE AMINO TRANSFERASE 43 IU/L (15-46); BILIRUBIN,INDIRECT 1.1 mg/dl (0-1.1); BILIRUBIN,TOTAL 1.1 mg/dl (0.2-1.3); BLOOD UREA NITROGEN 12 mg/dl (7-20); CALCIUM 8.6 mg/dl (8.4-10.2); CARBON DIOXIDE 28 mmol/L (21-31); CHLORIDE 105 mmol/L (97-110); CREATININE 0.38 mg/dl (0.44-1.00); Estimated GFR > 60 mL/min (>60); GLUCOSE 92 mg/dl (70-220); MAGNESIUM 2.1 mg/dl (1.7-2.5); POTASSIUM 3.7 mmol/L (3.5-5.1); SODIUM 140 mmol/L (135-144); TOTAL PROTEIN 5.8 g/dl (6.1-8.1)
[2019-03-29] MEDS: PIPER-TAZO 3.375 GM IV (PMX) 100 ML IVPB ×5 (02:19→23:08)
[2019-03-29] MEDS ORDERED: GLUCOSE GEL 15 GRAM TUBE BUCCAL (04:00)
[2019-03-29] MEDS ORDERED: GLUCAGON 1 MG INJ IM (04:00)
[2019-03-29] MEDS ORDERED: DEXTROSE 50% 50 ML SYRINGE IV ×2 (04:00)
[2019-03-29] MEDS ORDERED: GLUCOSE GEL 15 GRAM TUBE PO ×2 (04:00)
[2019-03-29] MEDS: ONDANSETRON 4 MG INJ IV (04:41)
[2019-03-29] MEDS: HYDROmorphONE 0.5 MG/0.5 ML SYG IV ×3 (04:43→23:07)
[2019-03-29] MEDS ORDERED: DOCUSATE SODIUM 100 MG CAP PO (05:30)
[2019-03-29 05:33] LABS: ADD MAN DIFF? NO
[2019-03-29 05:39] LABS: ABNORMAL IP MESSAGE 1; BASOPHILS % 0.1 % (0.0-2.0); EOSINOPHILS # 0.7 10^3/ul (0.0-0.5); EOSINOPHILS % 4.3 % (0.0-7.0); HEMATOCRIT 28.5 % (37.0-47.0); HEMOGLOBIN 8.6 g/dl (12.0-16.0); LYMPHOCYTES # 1.5 10^3/ul (0.8-2.9); LYMPHOCYTES % 9.2 % (15.0-51.0); MEAN CORPUSCULAR HEMOGLOBIN 24.6 pg (29.0-33.0); MEAN CORPUSCULAR HGB CONC 30.2 g/dl (32.0-37.0); MEAN CORPUSCULAR VOLUME 81.4 fl (82.0-101.0); MEAN PLATELET VOLUME 10.8 fl (7.4-10.4); MONOCYTE # 2.2 10^3/ul (0.3-0.9); MONOCYTES % 13.9 % (0.0-11.0); NEUTROPHIL # 11.5 10^3/ul (1.6-7.5); NEUTROPHILS % 71.9 % (39.0-77.0); NUCLEATED RED BLOOD CELLS # 0.3 10^3/ul (0.0-0.0); NUCLEATED RED BLOOD CELLS% 1.7 /100WBC (0.0-0.0); PLATELET COUNT 219 10^3/UL (140-415); RED CELL DISTRIBUTION WIDTH 17.8 % (11.5-14.5)
[2019-03-29] MEDS: INSULIN ASPART [NOVOLOG] 3 ML PEN SC ×4 (05:45→23:07)
[2019-03-29] MEDS: PANTOPRAZOLE (EC) 40 MG TAB PO ×2 (05:45→18:18)
[2019-03-29] MEDS ORDERED: PIPERACILLIN TAZO DEXTROSE ISO IVPB (06:00)
[2019-03-29] MEDS ORDERED: [UNRECOGNIZED DRUG - OTHER] IVPB (06:00)
[2019-03-29 06:18] LABS: ALANINE AMINOTRANSFERASE 69 IU/L (13-69); ALBUMIN 2.7 g/dl (3.3-4.9); ALKALINE PHOSPHATASE 123 IU/L (42-121); ANION GAP 8 (5-13); ASPARTATE AMINO TRANSFERASE 40 IU/L (15-46); BILIRUBIN,INDIRECT 1.4 mg/dl (0-1.1); BILIRUBIN,TOTAL 1.4 mg/dl (0.2-1.3); BLOOD UREA NITROGEN 12 mg/dl (7-20); CALCIUM 8.7 mg/dl (8.4-10.2); CARBON DIOXIDE 29 mmol/L (21-31); CHLORIDE 104 mmol/L (97-110); CREATININE 0.37 mg/dl (0.44-1.00); Estimated GFR > 60 mL/min (>60); GLUCOSE 79 mg/dl (70-220); POTASSIUM 3.8 mmol/L (3.5-5.1); SODIUM 141 mmol/L (135-144); TOTAL PROTEIN 5.7 g/dl (6.1-8.1)
[2019-03-29 06:20] LABS: POSITIVE DIFF @See below
[2019-03-29] MEDS: POLYETHYLENE GLYCOL 17 GM PACKET PO (08:19)
[2019-03-29] MEDS: COLCHICINE 0.6 MG CAP PO ×2 (08:19→20:40)
[2019-03-29] MEDS: SUCRALFATE (100 MG/ML) 10ML CUP PO ×4 (08:19→20:41)
[2019-03-29] MEDS: METHYLPREDNISOLONE 40 MG INJ IV ×2 (08:19→20:43)
[2019-03-29] MEDS: CREON (24K-76K-120K) 1 CAP PO ×3 (08:20→18:18)
[2019-03-29] MEDS: LACTOBACILLUS RHAMNOSUS CAP PO ×2 (08:20→20:41)
[2019-03-29] MEDS: NADOLOL 40 MG TAB PO ×2 (08:22→20:42)
[2019-03-29] MEDS: CYCLOBENZAPRINE 10 MG TAB PO ×2 (08:24→12:45)
[2019-03-29] MEDS: APIXABAN 5 MG TABLET PO ×2 (08:24→20:39)
[2019-03-29] MEDS: AZATHIOPRINE 50 MG TAB PO (08:24)
[2019-03-29] MEDS: CALCIUM/VITAMIN D (500/200) TAB PO (08:25)
[2019-03-29] MEDS: AMLODIPINE 5 MG TAB PO ×2 (08:27→20:41)
[2019-03-29] MEDS: HYDROCODONE/APAP (5/325) TAB PO (12:50)
[2019-03-29] MEDS: oxyCODONE 5 MG TAB PO (15:47)
[2019-03-30 05:43] LABS: ADD MAN DIFF? NO
[2019-03-30 05:50] LABS: ABNORMAL IP MESSAGE 1; BASOPHILS % 0.1 % (0.0-2.0); EOSINOPHILS % 0.1 % (0.0-7.0); HEMATOCRIT 27.1 % (37.0-47.0); LYMPHOCYTES # 0.5 10^3/ul (0.8-2.9); LYMPHOCYTES % 4.1 % (15.0-51.0); MEAN CORPUSCULAR HEMOGLOBIN 24.3 pg (29.0-33.0); MEAN CORPUSCULAR HGB CONC 29.5 g/dl (32.0-37.0); MEAN CORPUSCULAR VOLUME 82.4 fl (82.0-101.0); MEAN PLATELET VOLUME 11.3 fl (7.4-10.4); MONOCYTE # 0.8 10^3/ul (0.3-0.9); MONOCYTES % 7.4 % (0.0-11.0); NEUTROPHIL # 9.7 10^3/ul (1.6-7.5); NEUTROPHILS % 87.8 % (39.0-77.0); NUCLEATED RED BLOOD CELLS # 0.2 10^3/ul (0.0-0.0); NUCLEATED RED BLOOD CELLS% 1.7 /100WBC (0.0-0.0); PLATELET COUNT 223 10^3/UL (140-415); RED BLOOD COUNT 3.29 10^6/ul (4.20-5.40); RED CELL DISTRIBUTION WIDTH 18.6 % (11.5-14.5)
[2019-03-30] MEDS: PIPER-TAZO 3.375 GM IV (PMX) 100 ML IVPB ×4 (05:57→23:11)
[2019-03-30] MEDS: PANTOPRAZOLE (EC) 40 MG TAB PO ×2 (05:57→17:38)
[2019-03-30] MEDS: HYDROmorphONE 0.5 MG/0.5 ML SYG IV ×4 (06:02→23:11)
[2019-03-30 06:16] LABS: ALANINE AMINOTRANSFERASE 74 IU/L (13-69); ALBUMIN 2.7 g/dl (3.3-4.9); ALKALINE PHOSPHATASE 143 IU/L (42-121); ANION GAP 7 (5-13); ASPARTATE AMINO TRANSFERASE 42 IU/L (15-46); BILIRUBIN,INDIRECT 1.4 mg/dl (0-1.1); BILIRUBIN,TOTAL 1.4 mg/dl (0.2-1.3); BLOOD UREA NITROGEN 11 mg/dl (7-20); CALCIUM 8.9 mg/dl (8.4-10.2); CARBON DIOXIDE 30 mmol/L (21-31); CHLORIDE 104 mmol/L (97-110); CREATININE 0.41 mg/dl (0.44-1.00); Estimated GFR > 60 mL/min (>60); GLUCOSE 92 mg/dl (70-220); POTASSIUM 3.9 mmol/L (3.5-5.1); SODIUM 141 mmol/L (135-144); TOTAL PROTEIN 5.7 g/dl (6.1-8.1)
[2019-03-30 06:23] LABS: POSITIVE DIFF @See below
[2019-03-30] MEDS: NADOLOL 40 MG TAB PO ×2 (09:00→21:14)
[2019-03-30] MEDS: SUCRALFATE (100 MG/ML) 10ML CUP PO ×4 (09:12→21:13)
[2019-03-30] MEDS: POLYETHYLENE GLYCOL 17 GM PACKET PO (09:12)
[2019-03-30] MEDS: METHYLPREDNISOLONE 40 MG INJ IV ×2 (09:12→21:13)
[2019-03-30] MEDS: CREON (24K-76K-120K) 1 CAP PO ×3 (09:14→17:38)
[2019-03-30] MEDS: APIXABAN 5 MG TABLET PO ×2 (09:14→21:13)
[2019-03-30] MEDS: COLCHICINE 0.6 MG CAP PO ×2 (09:14→21:13)
[2019-03-30] MEDS: AZATHIOPRINE 50 MG TAB PO (09:14)
[2019-03-30] MEDS: AMLODIPINE 5 MG TAB PO ×2 (09:14→21:15)
[2019-03-30] MEDS: LACTOBACILLUS RHAMNOSUS CAP PO ×2 (09:14→21:13)
[2019-03-30] MEDS: CALCIUM/VITAMIN D (500/200) TAB PO (09:14)
[2019-03-30] MEDS: oxyCODONE 5 MG TAB PO (12:16)
[2019-03-31] MEDS: PANTOPRAZOLE (EC) 40 MG TAB PO ×2 (05:41→17:38)
[2019-03-31] MEDS: PIPER-TAZO 3.375 GM IV (PMX) 100 ML IVPB ×4 (05:41→23:53)
[2019-03-31] MEDS: HYDROmorphONE 0.5 MG/0.5 ML SYG IV ×4 (05:51→20:58)
[2019-03-31 06:32] LABS: ADD MAN DIFF? NO
[2019-03-31 06:36] LABS: WHITE BLOOD COUNT 10.9 10^3/ul (4.8-10.8)
[2019-03-31 06:36] LABS: BASOPHILS % 0.1 % (0.0-2.0); EOSINOPHILS # 0.1 10^3/ul (0.0-0.5); EOSINOPHILS % 0.7 % (0.0-7.0); HEMOGLOBIN 7.9 g/dl (12.0-16.0); LYMPHOCYTES # 0.7 10^3/ul (0.8-2.9); MEAN CORPUSCULAR HEMOGLOBIN 24.4 pg (29.0-33.0); MEAN CORPUSCULAR HGB CONC 30.4 g/dl (32.0-37.0); MEAN CORPUSCULAR VOLUME 80.2 fl (82.0-101.0); MEAN PLATELET VOLUME 10.5 fl (7.4-10.4); MONOCYTE # 0.9 10^3/ul (0.3-0.9); MONOCYTES % 8.5 % (0.0-11.0); NEUTROPHIL # 9.2 10^3/ul (1.6-7.5); NEUTROPHILS % 84.2 % (39.0-77.0); NUCLEATED RED BLOOD CELLS # 0.1 10^3/ul (0.0-0.0); NUCLEATED RED BLOOD CELLS% 0.8 /100WBC (0.0-0.0); PLATELET COUNT 226 10^3/UL (140-415); RED BLOOD COUNT 3.24 10^6/ul (4.20-5.40); RED CELL DISTRIBUTION WIDTH 18.7 % (11.5-14.5)
[2019-03-31 06:58] LABS: ALANINE AMINOTRANSFERASE 77 IU/L (13-69); ALBUMIN 2.8 g/dl (3.3-4.9); ALKALINE PHOSPHATASE 145 IU/L (42-121); ANION GAP 8 (5-13); ASPARTATE AMINO TRANSFERASE 48 IU/L (15-46); BILIRUBIN,INDIRECT 1.3 mg/dl (0-1.1); BILIRUBIN,TOTAL 1.3 mg/dl (0.2-1.3); BLOOD UREA NITROGEN 12 mg/dl (7-20); CALCIUM 8.9 mg/dl (8.4-10.2); CARBON DIOXIDE 29 mmol/L (21-31); CHLORIDE 103 mmol/L (97-110); CREATININE 0.42 mg/dl (0.44-1.00); Estimated GFR > 60 mL/min (>60); GLUCOSE 98 mg/dl (70-220); POTASSIUM 4.3 mmol/L (3.5-5.1); SODIUM 140 mmol/L (135-144); TOTAL PROTEIN 5.6 g/dl (6.1-8.1)
[2019-03-31] MEDS: SUCRALFATE (100 MG/ML) 10ML CUP PO ×4 (08:58→20:50)
[2019-03-31] MEDS: CREON (24K-76K-120K) 1 CAP PO ×3 (08:58→17:38)
[2019-03-31] MEDS: AZATHIOPRINE 50 MG TAB PO (08:59)
[2019-03-31] MEDS: POLYETHYLENE GLYCOL 17 GM PACKET PO (08:59)
[2019-03-31] MEDS: COLCHICINE 0.6 MG CAP PO ×2 (08:59→20:53)
[2019-03-31] MEDS: CALCIUM/VITAMIN D (500/200) TAB PO (08:59)
[2019-03-31] MEDS: METHYLPREDNISOLONE 40 MG INJ IV ×2 (08:59→20:50)
[2019-03-31] MEDS: LACTOBACILLUS RHAMNOSUS CAP PO ×2 (09:00→20:53)
[2019-03-31] MEDS: NADOLOL 40 MG TAB PO ×2 (09:00→20:53)
[2019-03-31] MEDS: AMLODIPINE 5 MG TAB PO ×2 (09:00→20:51)
[2019-03-31] MEDS: APIXABAN 5 MG TABLET PO ×2 (09:00→20:52)
[2019-03-31] MEDS: oxyCODONE 5 MG TAB PO (09:11)
[2019-03-31] MEDS: LUBIPROSTONE 24 MCG CAP PO ×3 (15:56→20:59)
[2019-03-31] MEDS: HYOSCYAMINE 0.125 MG SUBL TAB PO ×2 (16:40→20:59)
[2019-03-31] MEDS: ONDANSETRON 4 MG INJ IV (17:35)
[2019-04-01] MEDS: HYDROmorphONE 0.5 MG/0.5 ML SYG IV ×5 (01:32→20:19)
[2019-04-01] MEDS: PIPER-TAZO 3.375 GM IV (PMX) 100 ML IVPB ×4 (05:43→23:54)
[2019-04-01] MEDS: HYOSCYAMINE 0.125 MG SUBL TAB PO ×3 (05:43→23:54)
[2019-04-01] MEDS: PANTOPRAZOLE (EC) 40 MG TAB PO ×2 (05:43→17:22)
[2019-04-01 06:15] LABS: ADD MAN DIFF? NO
[2019-04-01 06:22] LABS: WHITE BLOOD COUNT 12.1 10^3/ul (4.8-10.8)
[2019-04-01 06:22] LABS: ABNORMAL IP MESSAGE 1; BASOPHILS % 0.1 % (0.0-2.0); EOSINOPHILS # 0.1 10^3/ul (0.0-0.5); EOSINOPHILS % 0.7 % (0.0-7.0); HEMATOCRIT 25.9 % (37.0-47.0); HEMOGLOBIN 7.9 g/dl (12.0-16.0); LYMPHOCYTES # 0.6 10^3/ul (0.8-2.9); LYMPHOCYTES % 4.7 % (15.0-51.0); MEAN CORPUSCULAR HEMOGLOBIN 24.5 pg (29.0-33.0); MEAN CORPUSCULAR HGB CONC 30.5 g/dl (32.0-37.0); MEAN CORPUSCULAR VOLUME 80.2 fl (82.0-101.0); MEAN PLATELET VOLUME 10.8 fl (7.4-10.4); MONOCYTE # 1.3 10^3/ul (0.3-0.9); MONOCYTES % 10.8 % (0.0-11.0); NEUTROPHILS % 83.1 % (39.0-77.0); NUCLEATED RED BLOOD CELLS # 0.1 10^3/ul (0.0-0.0); NUCLEATED RED BLOOD CELLS% 1.2 /100WBC (0.0-0.0); PLATELET COUNT 242 10^3/UL (140-415); RED BLOOD COUNT 3.23 10^6/ul (4.20-5.40); RED CELL DISTRIBUTION WIDTH 18.7 % (11.5-14.5)
[2019-04-01 06:29] LABS: POSITIVE DIFF @See below
[2019-04-01 06:59] LABS: ALANINE AMINOTRANSFERASE 96 IU/L (13-69); ALBUMIN 2.8 g/dl (3.3-4.9); ALKALINE PHOSPHATASE 163 IU/L (42-121); ANION GAP 8 (5-13); ASPARTATE AMINO TRANSFERASE 57 IU/L (15-46); BILIRUBIN,INDIRECT 1.2 mg/dl (0-1.1); BILIRUBIN,TOTAL 1.2 mg/dl (0.2-1.3); BLOOD UREA NITROGEN 9 mg/dl (7-20); CALCIUM 8.6 mg/dl (8.4-10.2); CARBON DIOXIDE 30 mmol/L (21-31); CHLORIDE 102 mmol/L (97-110); CREATININE 0.39 mg/dl (0.44-1.00); Estimated GFR > 60 mL/min (>60); GLUCOSE 129 mg/dl (70-220); POTASSIUM 3.8 mmol/L (3.5-5.1); SODIUM 140 mmol/L (135-144); TOTAL PROTEIN 5.6 g/dl (6.1-8.1)
[2019-04-01] MEDS: SUCRALFATE (100 MG/ML) 10ML CUP PO ×4 (08:41→20:39)
[2019-04-01] MEDS: METHYLPREDNISOLONE 40 MG INJ IV ×2 (08:42→20:39)
[2019-04-01] MEDS: CREON (24K-76K-120K) 1 CAP PO ×3 (08:42→17:22)
[2019-04-01] MEDS: AZATHIOPRINE 50 MG TAB PO (08:42)
[2019-04-01] MEDS: AMLODIPINE 5 MG TAB PO ×2 (08:42→20:47)
[2019-04-01] MEDS: LACTOBACILLUS RHAMNOSUS CAP PO ×2 (08:42→20:42)
[2019-04-01] MEDS: CALCIUM/VITAMIN D (500/200) TAB PO (08:42)
[2019-04-01] MEDS: COLCHICINE 0.6 MG CAP PO ×2 (08:42→20:39)
[2019-04-01] MEDS: APIXABAN 5 MG TABLET PO ×2 (08:42→20:42)
[2019-04-01] MEDS: LUBIPROSTONE 24 MCG CAP PO ×2 (08:43→20:39)
[2019-04-01] MEDS: POLYETHYLENE GLYCOL 17 GM PACKET PO (08:43)
[2019-04-01] MEDS: NADOLOL 40 MG TAB PO ×2 (08:43→20:57)
[2019-04-01] MEDS: BISACODYL (EC) 5 MG TAB PO (17:00)
[2019-04-01] MEDS: BISACODYL 10 MG SUPP PR (20:57)
[2019-04-01] MEDS: ONDANSETRON 4 MG INJ IV (22:09)
[2019-04-02] MEDS: HYDROmorphONE 0.5 MG/0.5 ML SYG IV ×4 (00:05→20:54)
[2019-04-02] MEDS: PIPER-TAZO 3.375 GM IV (PMX) 100 ML IVPB ×4 (06:10→23:47)
[2019-04-02] MEDS: HYOSCYAMINE 0.125 MG SUBL TAB PO ×3 (06:10→23:02)
[2019-04-02] MEDS: PANTOPRAZOLE (EC) 40 MG TAB PO ×2 (06:11→17:55)
[2019-04-02] MEDS: NADOLOL 40 MG TAB PO ×2 (09:00→23:02)
[2019-04-02] MEDS: APIXABAN 5 MG TABLET PO ×2 (09:27→20:49)
[2019-04-02] MEDS: POLYETHYLENE GLYCOL 17 GM PACKET PO (09:27)
[2019-04-02] MEDS: SUCRALFATE (100 MG/ML) 10ML CUP PO ×4 (09:27→20:49)
[2019-04-02] MEDS: LUBIPROSTONE 24 MCG CAP PO ×2 (09:28→20:49)
[2019-04-02] MEDS: CALCIUM/VITAMIN D (500/200) TAB PO (09:28)
[2019-04-02] MEDS: LACTOBACILLUS RHAMNOSUS CAP PO ×2 (09:28→20:49)
[2019-04-02] MEDS: METHYLPREDNISOLONE 40 MG INJ IV ×2 (09:31→20:48)
[2019-04-02] MEDS: AZATHIOPRINE 50 MG TAB PO (09:31)
[2019-04-02] MEDS: AMLODIPINE 5 MG TAB PO ×2 (09:31→20:49)
[2019-04-02] MEDS: COLCHICINE 0.6 MG CAP PO ×2 (09:32→20:49)
[2019-04-02] MEDS: CREON (24K-76K-120K) 1 CAP PO ×3 (09:32→17:55)
[2019-04-02] MEDS: ONDANSETRON 4 MG INJ IV (11:16)
[2019-04-02] MEDS: oxyCODONE 5 MG TAB PO (18:00)
[2019-04-03] MEDS: HYDROmorphONE 0.5 MG/0.5 ML SYG IV ×6 (01:25→22:28)
[2019-04-03] MEDS: ONDANSETRON 4 MG INJ IV (05:33)
[2019-04-03] MEDS: PIPER-TAZO 3.375 GM IV (PMX) 100 ML IVPB ×3 (05:33→17:51)
[2019-04-03] MEDS: HYOSCYAMINE 0.125 MG SUBL TAB PO ×3 (05:33→22:27)
[2019-04-03] MEDS: PANTOPRAZOLE (EC) 40 MG TAB PO ×2 (05:33→17:51)
[2019-04-03] MEDS: APIXABAN 5 MG TABLET PO ×2 (09:38→20:41)
[2019-04-03] MEDS: METHYLPREDNISOLONE 40 MG INJ IV ×2 (09:38→20:41)
[2019-04-03] MEDS: SUCRALFATE (100 MG/ML) 10ML CUP PO ×2 (09:38→13:01)
[2019-04-03] MEDS: NADOLOL 40 MG TAB PO ×2 (09:40→21:00)
[2019-04-03] MEDS: CREON (24K-76K-120K) 1 CAP PO ×3 (09:40→17:51)
[2019-04-03] MEDS: AZATHIOPRINE 50 MG TAB PO (09:40)
[2019-04-03] MEDS: LACTOBACILLUS RHAMNOSUS CAP PO ×2 (09:40→20:41)
[2019-04-03] MEDS: POLYETHYLENE GLYCOL 17 GM PACKET PO (09:41)
[2019-04-03] MEDS: COLCHICINE 0.6 MG CAP PO ×2 (09:41→20:41)
[2019-04-03] MEDS: CALCIUM/VITAMIN D (500/200) TAB PO (09:41)
[2019-04-03] MEDS: AMLODIPINE 5 MG TAB PO ×2 (09:41→20:41)
[2019-04-03] MEDS: LUBIPROSTONE 24 MCG CAP PO ×2 (09:41→20:41)
[2019-04-03] MEDS: FUROSEMIDE 20 MG TAB PO (16:36)
[2019-04-03] MEDS: SPIRONOLACTONE 25 MG TAB PO (20:41)
[2019-04-04] MEDS: PIPER-TAZO 3.375 GM IV (PMX) 100 ML IVPB ×3 (00:14→12:39)
[2019-04-04] MEDS: HYDROmorphONE 0.5 MG/0.5 ML SYG IV ×4 (02:34→15:14)
[2019-04-04] MEDS: PANTOPRAZOLE (EC) 40 MG TAB PO (05:39)
[2019-04-04] MEDS: HYOSCYAMINE 0.125 MG SUBL TAB PO ×2 (05:39→13:40)
[2019-04-04] MEDS: AL HYDROX/MG HYDROX/SIMETH 30 ML CUP PO ×2 (06:22→10:50)
[2019-04-04] MEDS: LACTOBACILLUS RHAMNOSUS CAP PO (08:27)
[2019-04-04] MEDS: POLYETHYLENE GLYCOL 17 GM PACKET PO (08:27)
[2019-04-04] MEDS: CALCIUM/VITAMIN D (500/200) TAB PO (08:27)
[2019-04-04] MEDS: AZATHIOPRINE 50 MG TAB PO (08:29)
[2019-04-04] MEDS: SPIRONOLACTONE 25 MG TAB PO (08:29)
[2019-04-04] MEDS: FUROSEMIDE 20 MG TAB PO (08:29)
[2019-04-04] MEDS: COLCHICINE 0.6 MG CAP PO (08:29)
[2019-04-04] MEDS: AMLODIPINE 5 MG TAB PO (08:29)
[2019-04-04] MEDS: CREON (24K-76K-120K) 1 CAP PO ×2 (08:29→12:45)
[2019-04-04] MEDS: NADOLOL 40 MG TAB PO (08:29)
[2019-04-04] MEDS: LUBIPROSTONE 24 MCG CAP PO (08:30)
[2019-04-04] MEDS: METHYLPREDNISOLONE 40 MG INJ IV (08:30)
[2019-04-04] MEDS: APIXABAN 5 MG TABLET PO (08:33)
[2019-04-04] MEDS: ONDANSETRON 4 MG INJ IV (10:56)
[2019-04-04] MEDS: SUCRALFATE (100 MG/ML) 10ML CUP PO (12:58)
== END 2019-04-04 17:10 | disposition home or self-care (01) | DRG 441 ==
LOC: 2NE 22:20
DX: I81 Portal vein thrombosis (principal); K85.90 Acute pancreatitis without necrosis or infection, unspecified; M32.12 Pericarditis in systemic lupus erythematosus; J90 Pleural effusion, not elsewhere classified; M06.9 Rheumatoid arthritis, unspecified; K25.9 Gastric ulcer, unspecified as acute or chronic, without hemorrhage or perforation; D50.9 Iron deficiency anemia, unspecified; K63.89 Other specified diseases of intestine; I73.00 Raynaud's syndrome without gangrene; R10.12 Left upper quadrant pain; K74.60 Unspecified cirrhosis of liver
CPT/HCPCS: 73610-RT; 80053; 82962; 83735; 85025; 87081; 93971

== ENCOUNTER 2019-04-08 18:12 | Inpatient (IN) | payer OTHER ==
[2019-04-08 19:13] LABS: ADD MAN DIFF? NO
[2019-04-08 19:15] LABS: WHITE BLOOD COUNT 9.6 10^3/ul (4.8-10.8)
[2019-04-08 19:15] LABS: ABNORMAL IP MESSAGE 1; BASOPHILS % 0.2 % (0.0-2.0); EOSINOPHILS % 0.1 % (0.0-7.0); HEMATOCRIT 27.6 % (37.0-47.0); HEMOGLOBIN 8.4 g/dl (12.0-16.0); LYMPHOCYTES # 0.3 10^3/ul (0.8-2.9); LYMPHOCYTES % 2.9 % (15.0-51.0); MEAN CORPUSCULAR HEMOGLOBIN 23.9 pg (29.0-33.0); MEAN CORPUSCULAR HGB CONC 30.4 g/dl (32.0-37.0); MEAN CORPUSCULAR VOLUME 78.4 fl (82.0-101.0); MEAN PLATELET VOLUME 10.9 fl (7.4-10.4); MONOCYTES % 9.9 % (0.0-11.0); NEUTROPHIL # 8.2 10^3/ul (1.6-7.5); NEUTROPHILS % 86.3 % (39.0-77.0); NUCLEATED RED BLOOD CELLS # 0.2 10^3/ul (0.0-0.0); NUCLEATED RED BLOOD CELLS% 1.9 /100WBC (0.0-0.0); PLATELET COUNT 359 10^3/UL (140-415); RED BLOOD COUNT 3.52 10^6/ul (4.20-5.40); RED CELL DISTRIBUTION WIDTH 20.1 % (11.5-14.5)
[2019-04-08] MEDS: PIPER-TAZO 3.375 GM IV (PMX) 100 ML IVPB (19:16)
[2019-04-08] MEDS: SODIUM CHLORIDE 0.9% 1L BAG IV* (19:16)
[2019-04-08] MEDS: HYDROmorphONE 1 MG/ML SYG IV (19:17)
[2019-04-08] MEDS: ONDANSETRON 4 MG INJ IV (19:17)
[2019-04-08 19:21] LABS: POSITIVE DIFF @See below
[2019-04-08 19:35] LABS: ANION GAP 9 (5-13); Estimated GFR > 60 mL/min (>60); INR 1.38; PARTIAL THROMBOPLASTIN TIME 37.8 Sec (23.0-35.0); PROTIME 17.1 Sec (11.9-14.9); PT RATIO 1.3
[2019-04-08 19:36] LABS: ALANINE AMINOTRANSFERASE 62 IU/L (13-69); ALBUMIN/GLOBULIN RATIO 0.88; ALKALINE PHOSPHATASE 412 IU/L (42-121); ASPARTATE AMINO TRANSFERASE 27 IU/L (15-46); BLOOD UREA NITROGEN 7 mg/dl (7-20); CALCIUM 8.3 mg/dl (8.4-10.2); CARBON DIOXIDE 23 mmol/L (21-31); CHLORIDE 108 mmol/L (97-110); CREATININE 0.47 mg/dl (0.44-1.00); GLUCOSE 121 mg/dl (70-220); LIPASE 23 U/L (23-300); SODIUM 140 mmol/L (135-144); TOTAL PROTEIN 6.4 g/dl (6.1-8.1)
[2019-04-08 19:49] LABS: TROPONIN-I < 0.012 ng/ml (0.000-0.120)
[2019-04-08] MEDS: IOHEXOL 300MG/ML 150 ML BTL (20:38)
[2019-04-08] MEDS: SOD CHLORIDE 0.9% 100 ML (20:38)
[2019-04-08 23:47] LABS: ADD UMIC YES; UR ASCORBIC ACID NEGATIVE (NEGATIVE); UR BILIRUBIN (Dip) NEGATIVE (NEGATIVE); UR BLOOD (Dip) 2+ mg/dL (NEGATIVE); UR CLARITY SLIGHTLY CLOUDY (CLEAR); UR COLOR AMBER (YELLOW); UR GLUCOSE (Dip) NEGATIVE (NEGATIVE); UR KETONES (Dip) NEGATIVE (NEGATIVE); UR LEUKOCYTE ESTERASE (Dip) TRACE Leu/ul (NEGATIVE); UR MUCUS MODERATE /HPF (NONE SEEN); UR NITRITE (Dip) NEGATIVE (NEGATIVE); UR RBC 2 /HPF (0-5); UR SPECIFIC GRAVITY (Dip) 1.021 (1.003-1.030); UR SQUAMOUS EPITHELIAL CELL FEW /HPF (FEW); UR TOTAL PROTEIN (Dip) NEGATIVE (NEGATIVE); UR UROBILINOGEN (Dip) NEGATIVE (NEGATIVE); UR WBC 2 /HPF (0-5)
[2019-04-09] MEDS ORDERED: ACETAMINOPHEN 325 MG TAB PO
[2019-04-09 00:06] LABS: LACTIC ACID 0.9 mmol/L (0.5-2.0)
[2019-04-09] MEDS: HYDROmorphONE 2 MG/ML SYG IV (00:55)
[2019-04-09] MEDS ORDERED: ALBUTEROL/IPRATROPIUM (NEB) 3 ML AMP HHN (01:00)
[2019-04-09] MEDS ORDERED: HYDROCODONE/APAP (5/325) TAB PO (01:00)
[2019-04-09] MEDS: ONDANSETRON 4 MG INJ IV ×2 (05:40→20:17)
[2019-04-09] MEDS: HYDROCODONE/APAP (5/325) TAB PO ×2 (05:40→09:19)
[2019-04-09] MEDS: HYOSCYAMINE 0.125 MG SUBL TAB PO ×3 (05:41→21:16)
[2019-04-09] MEDS: FUROSEMIDE 20 MG TAB PO (05:41)
[2019-04-09] MEDS: PANTOPRAZOLE (EC) 40 MG TAB PO ×2 (05:41→18:06)
[2019-04-09] MEDS ORDERED: COLCHICINE 0.6 MG PO (09:00)
[2019-04-09] MEDS: PIPER-TAZO 3.375 GM IV (PMX) 100 ML IVPB ×4 (09:18→23:41)
[2019-04-09] MEDS: SUCRALFATE (100 MG/ML) 10ML CUP PO ×4 (09:18→20:11)
[2019-04-09] MEDS: COLCHICINE 0.6 MG CAP PO ×2 (09:19→20:10)
[2019-04-09] MEDS: AZATHIOPRINE 50 MG TAB PO (09:20)
[2019-04-09] MEDS: CREON (24K-76K-120K) 1 CAP PO ×3 (09:21→18:06)
[2019-04-09] MEDS: SPIRONOLACTONE 25 MG TAB PO ×2 (09:21→20:10)
[2019-04-09] MEDS: CYCLOBENZAPRINE 10 MG TAB PO ×3 (09:21→20:10)
[2019-04-09] MEDS: APIXABAN 5 MG TABLET PO ×2 (09:21→20:19)
[2019-04-09] MEDS: LACTOBACILLUS RHAMNOSUS CAP PO ×3 (09:21→18:06)
[2019-04-09] MEDS: AMLODIPINE 10 MG TAB PO ×2 (09:22→20:09)
[2019-04-09] MEDS: HYDROmorphONE 1 MG/ML SYG IV ×3 (14:06→23:35)
[2019-04-09] MEDS: NACL 0.9% 3 ML SYG IV ×2 (14:10→18:53)
[2019-04-09] MEDS: NADOLOL 40 MG TAB PO (20:08)
[2019-04-10] MEDS: LEVALBUTEROL (NEB) 0.63 MG/3 ML AMP HHN (00:20)
[2019-04-10] MEDS ORDERED: VANCOMYCIN IV PER PHARMACY XX (00:30)
[2019-04-10] MEDS: ACETAMINOPHEN 1000MG/100ML IV 100 ML IVPB (00:36)
[2019-04-10] MEDS: HYDROmorphONE 0.5 MG/0.5 ML SYG IV (00:37)
[2019-04-10] MEDS: CLINDAMYCIN 600 MG/D5W (PMX) 50 ML IVPB ×3 (02:42→14:09)
[2019-04-10] MEDS: PIPER-TAZO 3.375 GM IV (PMX) 100 ML IVPB ×4 (05:32→23:15)
[2019-04-10 06:03] LABS: ADD MAN DIFF? NO
[2019-04-10 06:16] LABS: WHITE BLOOD COUNT 11.9 10^3/ul (4.8-10.8)
[2019-04-10 06:16] LABS: ABNORMAL IP MESSAGE 1; BASOPHILS % 0.3 % (0.0-2.0); EOSINOPHILS # 0.4 10^3/ul (0.0-0.5); EOSINOPHILS % 3.7 % (0.0-7.0); HEMATOCRIT 29.7 % (37.0-47.0); HEMOGLOBIN 8.9 g/dl (12.0-16.0); LYMPHOCYTES # 0.8 10^3/ul (0.8-2.9); LYMPHOCYTES % 6.4 % (15.0-51.0); MEAN CORPUSCULAR HEMOGLOBIN 23.5 pg (29.0-33.0); MEAN CORPUSCULAR VOLUME 78.4 fl (82.0-101.0); MEAN PLATELET VOLUME 11.4 fl (7.4-10.4); MONOCYTE # 2.2 10^3/ul (0.3-0.9); MONOCYTES % 18.9 % (0.0-11.0); NEUTROPHIL # 8.3 10^3/ul (1.6-7.5); NEUTROPHILS % 70.1 % (39.0-77.0); NUCLEATED RED BLOOD CELLS # 0.3 10^3/ul (0.0-0.0); NUCLEATED RED BLOOD CELLS% 2.1 /100WBC (0.0-0.0); PLATELET COUNT 399 10^3/UL (140-415); RED BLOOD COUNT 3.79 10^6/ul (4.20-5.40); RED CELL DISTRIBUTION WIDTH 19.9 % (11.5-14.5)
[2019-04-10] MEDS: HYOSCYAMINE 0.125 MG SUBL TAB PO (06:24)
[2019-04-10] MEDS: PANTOPRAZOLE (EC) 40 MG TAB PO ×2 (06:24→17:13)
[2019-04-10 06:25] LABS: POSITIVE DIFF @See below
[2019-04-10] MEDS: FUROSEMIDE 20 MG TAB PO (06:28)
[2019-04-10 06:43] LABS: ALANINE AMINOTRANSFERASE 49 IU/L (13-69); ALBUMIN 2.9 g/dl (3.3-4.9); ALKALINE PHOSPHATASE 387 IU/L (42-121); ANION GAP 7 (5-13); ASPARTATE AMINO TRANSFERASE 30 IU/L (15-46); BILIRUBIN,INDIRECT 0.8 mg/dl (0-1.1); BILIRUBIN,TOTAL 0.8 mg/dl (0.2-1.3); BLOOD UREA NITROGEN 5 mg/dl (7-20); CALCIUM 8.1 mg/dl (8.4-10.2); CARBON DIOXIDE 25 mmol/L (21-31); CHLORIDE 109 mmol/L (97-110); CREATININE 0.67 mg/dl (0.44-1.00); Estimated GFR > 60 mL/min (>60); GLUCOSE 95 mg/dl (70-220); MAGNESIUM 1.8 mg/dl (1.7-2.5); PHOSPHORUS 4.2 mg/dl (2.5-4.9); POTASSIUM 3.9 mmol/L (3.5-5.1); SODIUM 141 mmol/L (135-144); TOTAL PROTEIN 6.1 g/dl (6.1-8.1)
[2019-04-10] MEDS: ONDANSETRON 4 MG INJ IV ×2 (08:37→22:02)
[2019-04-10] MEDS: AZATHIOPRINE 50 MG TAB PO (08:50)
[2019-04-10] MEDS: SPIRONOLACTONE 25 MG TAB PO ×2 (08:50→22:22)
[2019-04-10] MEDS: CREON (24K-76K-120K) 1 CAP PO ×3 (08:50→17:13)
[2019-04-10] MEDS: CYCLOBENZAPRINE 10 MG TAB PO (08:50)
[2019-04-10] MEDS: COLCHICINE 0.6 MG CAP PO ×2 (08:51→22:22)
[2019-04-10] MEDS: LACTOBACILLUS RHAMNOSUS CAP PO ×2 (08:51→11:50)
[2019-04-10] MEDS: AMLODIPINE 10 MG TAB PO ×2 (08:51→22:23)
[2019-04-10] MEDS: NADOLOL 40 MG TAB PO ×2 (08:52→22:24)
[2019-04-10] MEDS: SUCRALFATE (100 MG/ML) 10ML CUP PO ×4 (08:56→22:25)
[2019-04-10] MEDS: APIXABAN 5 MG TABLET PO ×2 (09:00→22:22)
[2019-04-10] MEDS: ACETAMINOPHEN 325 MG TAB PO (11:10)
[2019-04-10] MEDS: traMADol 50 MG TAB PO ×2 (11:11→22:23)
[2019-04-10] MEDS: HYDROmorphONE 1 MG/ML SYG IV ×2 (13:22→23:14)
[2019-04-10] MEDS: LIDOCAINE 1% (MPF) 5 ML VIAL (15:51)
[2019-04-10 16:37] LABS: FLUID LD 116 U/L; FLUID TOTAL PROTEIN < 2.0 g/dl; FLUID TYPE PARACENTESIS FLUID
[2019-04-10 16:52] LABS: FLD MN% 74.1 %; FLD PMN% 25.9 %; FLD RBC 0 /uL; FLD WBC 135 /cmm
[2019-04-10 17:07] LABS: FLD TYPE ASCITES
[2019-04-10 17:07] LABS: FLD CLARITY CLEAR; FLD COLOR YELLOW
[2019-04-11] MEDS: PANTOPRAZOLE (EC) 40 MG TAB PO ×2 (05:32→17:43)
[2019-04-11] MEDS: PIPER-TAZO 3.375 GM IV (PMX) 100 ML IVPB ×3 (05:32→17:43)
[2019-04-11] MEDS: HYDROmorphONE 1 MG/ML SYG IV ×4 (05:35→21:06)
[2019-04-11] MEDS: FUROSEMIDE 20 MG TAB PO (06:00)
[2019-04-11] MEDS: SUCRALFATE (100 MG/ML) 10ML CUP PO ×4 (09:14→20:51)
[2019-04-11] MEDS: SPIRONOLACTONE 25 MG TAB PO ×2 (09:15→20:50)
[2019-04-11] MEDS: COLCHICINE 0.6 MG CAP PO ×2 (09:15→20:50)
[2019-04-11] MEDS: CREON (24K-76K-120K) 1 CAP PO ×3 (09:16→17:43)
[2019-04-11] MEDS: APIXABAN 5 MG TABLET PO ×2 (09:16→20:50)
[2019-04-11] MEDS: AZATHIOPRINE 50 MG TAB PO (09:16)
[2019-04-11] MEDS: NADOLOL 40 MG TAB PO ×2 (09:16→20:50)
[2019-04-11] MEDS: AMLODIPINE 10 MG TAB PO (09:17)
[2019-04-11] MEDS: ONDANSETRON 4 MG INJ IV (12:42)
[2019-04-11] MEDS: METHYLPREDNISOLONE 40 MG INJ IV ×2 (15:12→20:52)
[2019-04-11] MEDS: NACL 0.9% 3 ML SYG IV (15:14)
[2019-04-12] MEDS: PIPER-TAZO 3.375 GM IV (PMX) 100 ML IVPB ×4 (00:41→17:15)
[2019-04-12 05:15] LABS: ADD MAN DIFF? NO
[2019-04-12 05:19] LABS: ABNORMAL IP MESSAGE 1; BASOPHILS % 0.2 % (0.0-2.0); HEMATOCRIT 28.3 % (37.0-47.0); HEMOGLOBIN 8.5 g/dl (12.0-16.0); LYMPHOCYTES # 0.3 10^3/ul (0.8-2.9); LYMPHOCYTES % 3.4 % (15.0-51.0); MEAN CORPUSCULAR HEMOGLOBIN 23.3 pg (29.0-33.0); MEAN CORPUSCULAR VOLUME 77.5 fl (82.0-101.0); MEAN PLATELET VOLUME 11.1 fl (7.4-10.4); MONOCYTE # 0.2 10^3/ul (0.3-0.9); MONOCYTES % 2.3 % (0.0-11.0); NEUTROPHIL # 7.7 10^3/ul (1.6-7.5); NEUTROPHILS % 93.4 % (39.0-77.0); NUCLEATED RED BLOOD CELLS # 0.1 10^3/ul (0.0-0.0); NUCLEATED RED BLOOD CELLS% 1.6 /100WBC (0.0-0.0); PLATELET COUNT 442 10^3/UL (140-415); RED BLOOD COUNT 3.65 10^6/ul (4.20-5.40)
[2019-04-12 05:19] LABS: WHITE BLOOD COUNT 8.3 10^3/ul (4.8-10.8)
[2019-04-12 05:26] LABS: POSITIVE DIFF @See below
[2019-04-12] MEDS: PANTOPRAZOLE (EC) 40 MG TAB PO ×2 (05:33→17:15)
[2019-04-12] MEDS: HYDROmorphONE 1 MG/ML SYG IV ×3 (05:33→16:36)
[2019-04-12] MEDS: FUROSEMIDE 20 MG TAB PO (05:34)
[2019-04-12 05:40] LABS: ALANINE AMINOTRANSFERASE 36 IU/L (13-69); ALBUMIN 2.8 g/dl (3.3-4.9); ALBUMIN/GLOBULIN RATIO 0.84; ALKALINE PHOSPHATASE 309 IU/L (42-121); ANION GAP 7 (5-13); ASPARTATE AMINO TRANSFERASE 19 IU/L (15-46); BILIRUBIN,INDIRECT 0.7 mg/dl (0-1.1); BILIRUBIN,TOTAL 0.7 mg/dl (0.2-1.3); BLOOD UREA NITROGEN 8 mg/dl (7-20); CALCIUM 8.7 mg/dl (8.4-10.2); CARBON DIOXIDE 24 mmol/L (21-31); CHLORIDE 108 mmol/L (97-110); CREATININE 0.48 mg/dl (0.44-1.00); Estimated GFR > 60 mL/min (>60); GLUCOSE 128 mg/dl (70-220); POTASSIUM 4.1 mmol/L (3.5-5.1); SODIUM 139 mmol/L (135-144); TOTAL PROTEIN 6.1 g/dl (6.1-8.1)
[2019-04-12] MEDS: SUCRALFATE (100 MG/ML) 10ML CUP PO ×3 (09:09→16:36)
[2019-04-12] MEDS: NADOLOL 40 MG TAB PO (09:11)
[2019-04-12] MEDS: METHYLPREDNISOLONE 40 MG INJ IV (09:12)
[2019-04-12] MEDS: SPIRONOLACTONE 25 MG TAB PO (09:13)
[2019-04-12] MEDS: APIXABAN 5 MG TABLET PO (09:13)
[2019-04-12] MEDS: COLCHICINE 0.6 MG CAP PO (09:13)
[2019-04-12] MEDS: AZATHIOPRINE 50 MG TAB PO (09:13)
[2019-04-12] MEDS: CREON (24K-76K-120K) 1 CAP PO ×3 (09:13→17:15)
[2019-04-12] MEDS: ONDANSETRON 4 MG INJ IV (12:37)
== END 2019-04-12 18:55 | disposition home or self-care (01) | DRG 432 ==
LOC: TEL 04-10 01:15 → E/R 18:12 → 2NE 23:57
PROVIDERS: Internal Medicine
DX: K74.60 Unspecified cirrhosis of liver (principal); I81 Portal vein thrombosis; K86.1 Other chronic pancreatitis; R18.8 Other ascites; M32.12 Pericarditis in systemic lupus erythematosus; K76.6 Portal hypertension; R65.10 Systemic inflammatory response syndrome (SIRS) of non-infectious origin without acute organ dysfunction
CPT/HCPCS: 36415; 71045; 74177; 76705; 80053; 81001; 81025; 83605; 83615; 83690; 83735; 84100; 84157; 84484; 84703; 85025; 85610; 85730; 87040-91; 87070; 87081; 87086; 87102; 87116; 88104; 88305; 89051; 93005; 94664; 96374; 96375; 99285-25

== ENCOUNTER 2019-04-18 17:46 | Emergency (ER) | payer OTHER ==
[2019-04-18] MEDS: ONDANSETRON 4 MG INJ IV (18:40)
[2019-04-18] MEDS: morphine 2 MG INJ IV ×2 (18:41→20:42)
[2019-04-18] MEDS: FAMOTIDINE 20 MG TAB PO (18:41)
[2019-04-18 18:43] LABS: ADD MAN DIFF? NO
[2019-04-18 18:46] LABS: WHITE BLOOD COUNT 12.7 10^3/ul (4.8-10.8)
[2019-04-18 18:46] LABS: ABNORMAL IP MESSAGE 1; HEMATOCRIT 29.6 % (37.0-47.0); HEMOGLOBIN 8.6 g/dl (12.0-16.0); MEAN CORPUSCULAR HEMOGLOBIN 23.1 pg (29.0-33.0); MEAN CORPUSCULAR HGB CONC 29.1 g/dl (32.0-37.0); MEAN CORPUSCULAR VOLUME 79.6 fl (82.0-101.0); MEAN PLATELET VOLUME 10.1 fl (7.4-10.4); NUCLEATED RED BLOOD CELLS% 4.3 /100WBC (0.0-0.0); PLATELET COUNT 487 10^3/UL (140-415); RED BLOOD COUNT 3.72 10^6/ul (4.20-5.40); RED CELL DISTRIBUTION WIDTH 20.9 % (11.5-14.5)
[2019-04-18 18:47] LABS: POSITIVE DIFF @See below
[2019-04-18 19:07] LABS: ALANINE AMINOTRANSFERASE 30 IU/L (13-69); ALBUMIN 3.4 g/dl (3.3-4.9); ALBUMIN/GLOBULIN RATIO 0.94; ALKALINE PHOSPHATASE 288 IU/L (42-121); ANION GAP 8 (5-13); ASPARTATE AMINO TRANSFERASE 24 IU/L (15-46); BILIRUBIN,INDIRECT 0.9 mg/dl (0-1.1); BILIRUBIN,TOTAL 0.9 mg/dl (0.2-1.3); BLOOD UREA NITROGEN 12 mg/dl (7-20); CALCIUM 8.9 mg/dl (8.4-10.2); CARBON DIOXIDE 25 mmol/L (21-31); CHLORIDE 108 mmol/L (97-110); CREATININE 0.55 mg/dl (0.44-1.00); Estimated GFR > 60 mL/min (>60); GLUCOSE 96 mg/dl (70-220); LIPASE 36 U/L (23-300); POTASSIUM 3.5 mmol/L (3.5-5.1); SODIUM 141 mmol/L (135-144)
[2019-04-18 19:34] LABS: ANISOCYTOSIS 3+ (0-0); EOSINOPHILS % (M) 2 % (0-7); ERYTHROBLAST% (NRBC) (M) 6 % (0-0); GIANT THROMBO% (M) 1 % (0-0); HYPOCHROMASIA 3+ (0-0); LYMPHOCYTES #M 1.7 10^3/ul (0.8-2.9); LYMPHOCYTES % (M) 14 % (15-51); MICROCYTOSIS 1+ (0-0); MONOCYTE #M 2.2 10^3/ul (0.3-0.9); MONOCYTES % (M) 18 % (0-11); PLATELET ESTIMATE NORMAL; POIKILOCYTOSIS 3+ (0-0); POLYCHROMASIA 3+ (0-0); SEGMENTED NEUTROPHILS (M) % 66 % (39-77); SMUDGE%M 8 % (0-0)
[2019-04-18 19:57] LABS: URINE BLOOD (Dip) POC Negative (NEGATIVE); URINE GLUCOSE (Dip) POC Negative (NEGATIVE); URINE KETONES (Dip) POC 1+ (NEGATIVE); URINE LEUKOCYTE EST (Dip) POC Negative (NEGATIVE); URINE NITRITE (Dip) POC Negative (NEGATIVE); URINE TOTAL PROTEIN POC 2+ (NEGATIVE)
[2019-04-18 19:57] LABS: URINE PH (Dip) POC 5.5 (5.0-8.5)
[2019-04-18] MEDS: LIDOCAINE/MYLANTA 40 ML BTL PO (20:42)
== END 2019-04-18 21:02 | disposition home or self-care (01) ==
LOC: E/R 17:46
DX: K59.00 Constipation, unspecified (principal); D64.9 Anemia, unspecified; J45.909 Unspecified asthma, uncomplicated; Z85.028 Personal history of other malignant neoplasm of stomach
CPT/HCPCS: 36415; 80053; 81003; 81025; 83690; 85025; 96374; 96375; 96376; 99284-25

== ENCOUNTER 2019-05-20 00:42 | Inpatient (IN) | payer OTHER ==
[2019-05-20 02:38] LABS: ADD MAN DIFF? NO
[2019-05-20 02:40] LABS: WHITE BLOOD COUNT 4.8 10^3/ul (4.8-10.8)
[2019-05-20 02:40] LABS: BASOPHILS % 0.6 % (0.0-2.0); EOSINOPHILS # 0.3 10^3/ul (0.0-0.5); EOSINOPHILS % 5.2 % (0.0-7.0); HEMATOCRIT 24.4 % (37.0-47.0); HEMOGLOBIN 7.1 g/dl (12.0-16.0); LYMPHOCYTES # 0.8 10^3/ul (0.8-2.9); MEAN CORPUSCULAR HEMOGLOBIN 22.1 pg (29.0-33.0); MEAN CORPUSCULAR HGB CONC 29.1 g/dl (32.0-37.0); MONOCYTE # 1.2 10^3/ul (0.3-0.9); MONOCYTES % 24.3 % (0.0-11.0); NEUTROPHIL # 2.5 10^3/ul (1.6-7.5); NEUTROPHILS % 52.5 % (39.0-77.0); NUCLEATED RED BLOOD CELLS # 0.1 10^3/ul (0.0-0.0); NUCLEATED RED BLOOD CELLS% 2.1 /100WBC (0.0-0.0); PLATELET COUNT 508 10^3/UL (140-415); RED BLOOD COUNT 3.21 10^6/ul (4.20-5.40); RED CELL DISTRIBUTION WIDTH 20.1 % (11.5-14.5)
[2019-05-20 03:13] LABS: ALANINE AMINOTRANSFERASE 28 IU/L (13-69); ALBUMIN 2.4 g/dl (3.3-4.9); ALBUMIN/GLOBULIN RATIO 0.64; ALKALINE PHOSPHATASE 109 IU/L (42-121); ANION GAP 7 (5-13); ASPARTATE AMINO TRANSFERASE 34 IU/L (15-46); BILIRUBIN,INDIRECT 0.6 mg/dl (0-1.1); BILIRUBIN,TOTAL 0.6 mg/dl (0.2-1.3); BLOOD UREA NITROGEN 5 mg/dl (7-20); CALCIUM 8.1 mg/dl (8.4-10.2); CARBON DIOXIDE 27 mmol/L (21-31); CHLORIDE 103 mmol/L (97-110); CREATININE 0.47 mg/dl (0.44-1.00); Estimated GFR > 60 mL/min (>60); GLUCOSE 84 mg/dl (70-220); LIPASE 23 U/L (23-300); POTASSIUM 3.4 mmol/L (3.5-5.1); SODIUM 137 mmol/L (135-144); TOTAL PROTEIN 6.1 g/dl (6.1-8.1)
[2019-05-20] MEDS ORDERED: ACETAMINOPHEN 325 MG TAB PO (05:00)
[2019-05-20] MEDS ORDERED: NACL 0.9% 3 ML SYG IV (05:00)
[2019-05-20] MEDS ORDERED: HYDROCODONE/APAP (5/325) TAB PO (05:00)
[2019-05-20 05:25] LABS: URINE PH (Dip) POC 5.5 (5.0-8.5)
[2019-05-20 05:25] LABS: URINE BLOOD (Dip) POC 3+ (NEGATIVE); URINE GLUCOSE (Dip) POC Negative (NEGATIVE); URINE KETONES (Dip) POC 1+ (NEGATIVE); URINE LEUKOCYTE EST (Dip) POC Negative (NEGATIVE); URINE NITRITE (Dip) POC Negative (NEGATIVE); URINE TOTAL PROTEIN POC 2+ (NEGATIVE)
[2019-05-20 06:00] LABS: IMMEDIATE SPIN CROSSMATCH 1
[2019-05-20] MEDS: HYDROmorphONE 0.5 MG/0.5 ML SYG IV (06:06)
[2019-05-20 06:14] LABS: PROTIME 82.6 Sec (11.9-14.9); PT RATIO 6.5
[2019-05-20] MEDS: PANTOPRAZOLE 40 MG INJ IV ×2 (06:34→17:03)
[2019-05-20] MEDS: FUROSEMIDE 40 MG TAB PO (06:35)
[2019-05-20 06:51] LABS: INR > 10.00; PARTIAL THROMBOPLASTIN TIME 71.7 Sec (23.0-35.0)
[2019-05-20] MEDS: PHYTONADIONE 10 MG/ML INJ SC (07:32)
[2019-05-20] MEDS ORDERED: COLCHICINE 0.6 MG PO (09:00)
[2019-05-20] MEDS: HYDROCODONE/APAP (5/325) TAB PO (09:53)
[2019-05-20] MEDS: COLCHICINE 0.6 MG CAP PO ×3 (10:05→21:00)
[2019-05-20] MEDS: NADOLOL 40 MG TAB PO ×3 (10:05→21:00)
[2019-05-20] MEDS: SUCRALFATE (100 MG/ML) 10ML CUP PO ×4 (10:08→23:31)
[2019-05-20] MEDS: SPIRONOLACTONE 25 MG TAB PO ×2 (10:14→23:32)
[2019-05-20] MEDS: AZATHIOPRINE 50 MG TAB PO (10:14)
[2019-05-20] MEDS: AMLODIPINE 10 MG TAB PO ×2 (10:15→23:28)
[2019-05-20] MEDS: POLYETHYLENE GLYCOL 17 GM PACKET PO (10:15)
[2019-05-20] MEDS: morphine 2 MG INJ IV ×3 (11:26→21:04)
[2019-05-20] MEDS: ONDANSETRON 4 MG INJ IV ×2 (11:26→19:52)
[2019-05-20] MEDS: DIPHENHYDRAMINE 50 MG INJ IV (12:08)
[2019-05-20 15:07] LABS: INR 5.62; PROTIME 50.7 Sec (11.9-14.9)
[2019-05-20] MEDS: IOHEXOL 14.3 MG(I)/ML (ADULT) BTL PO (17:52)
[2019-05-20] MEDS: SOD CHLORIDE 0.9% 100 ML (23:15)
[2019-05-20] MEDS: IOHEXOL 300MG/ML 150 ML BTL (23:15)
[2019-05-21] MEDS: morphine 2 MG INJ IV ×5 (05:10→22:06)
[2019-05-21] MEDS: ONDANSETRON 4 MG INJ IV ×3 (05:11→17:27)
[2019-05-21] MEDS: PANTOPRAZOLE 40 MG INJ IV ×2 (05:20→17:17)
[2019-05-21] MEDS: FUROSEMIDE 40 MG TAB PO (05:22)
[2019-05-21 06:05] LABS: ADD MAN DIFF? NO
[2019-05-21 06:19] LABS: BASOPHIL # 0.1 10^3/ul (0.0-0.1); BASOPHILS % 1.2 % (0.0-2.0); EOSINOPHILS # 0.5 10^3/ul (0.0-0.5); EOSINOPHILS % 13.2 % (0.0-7.0); HEMOGLOBIN 8.7 g/dl (12.0-16.0); LYMPHOCYTES % 24.2 % (15.0-51.0); MEAN CORPUSCULAR HEMOGLOBIN 22.7 pg (29.0-33.0); MEAN CORPUSCULAR VOLUME 75.7 fl (82.0-101.0); MEAN PLATELET VOLUME 10.2 fl (7.4-10.4); MONOCYTE # 1.2 10^3/ul (0.3-0.9); MONOCYTES % 29.8 % (0.0-11.0); NEUTROPHIL # 1.3 10^3/ul (1.6-7.5); NEUTROPHILS % 31.4 % (39.0-77.0); NUCLEATED RED BLOOD CELLS # 0.1 10^3/ul (0.0-0.0); NUCLEATED RED BLOOD CELLS% 2.7 /100WBC (0.0-0.0); PLATELET COUNT 512 10^3/UL (140-415); RED BLOOD COUNT 3.83 10^6/ul (4.20-5.40); RED CELL DISTRIBUTION WIDTH 19.9 % (11.5-14.5)
[2019-05-21 06:19] LABS: WHITE BLOOD COUNT 4.1 10^3/ul (4.8-10.8)
[2019-05-21 07:06] LABS: ALANINE AMINOTRANSFERASE 28 IU/L (13-69); ALBUMIN 2.3 g/dl (3.3-4.9); ALBUMIN/GLOBULIN RATIO 0.62; ALKALINE PHOSPHATASE 111 IU/L (42-121); ANION GAP 6 (5-13); ASPARTATE AMINO TRANSFERASE 37 IU/L (15-46); BILIRUBIN,INDIRECT 1.1 mg/dl (0-1.1); BILIRUBIN,TOTAL 1.1 mg/dl (0.2-1.3); BLOOD UREA NITROGEN 3 mg/dl (7-20); CALCIUM 7.8 mg/dl (8.4-10.2); CARBON DIOXIDE 27 mmol/L (21-31); CHLORIDE 102 mmol/L (97-110); CREATININE 0.46 mg/dl (0.44-1.00); Estimated GFR > 60 mL/min (>60); GLUCOSE 63 mg/dl (70-220); MAGNESIUM 1.7 mg/dl (1.7-2.5); PHOSPHORUS 3.1 mg/dl (2.5-4.9); POTASSIUM 3.1 mmol/L (3.5-5.1); SODIUM 135 mmol/L (135-144)
[2019-05-21] MEDS: POLYETHYLENE GLYCOL 17 GM PACKET PO (09:00)
[2019-05-21] MEDS: COLCHICINE 0.6 MG CAP PO ×2 (09:22→21:52)
[2019-05-21] MEDS: SUCRALFATE (100 MG/ML) 10ML CUP PO ×4 (09:22→21:51)
[2019-05-21] MEDS: AZATHIOPRINE 50 MG TAB PO (09:22)
[2019-05-21] MEDS: AMLODIPINE 10 MG TAB PO ×2 (09:23→21:52)
[2019-05-21] MEDS: SPIRONOLACTONE 25 MG TAB PO ×2 (09:23→21:52)
[2019-05-21] MEDS: NADOLOL 40 MG TAB PO ×2 (09:23→21:52)
[2019-05-21] MEDS: MAGNESIUM OXIDE 400 MG TAB PO ×2 (09:28→21:51)
[2019-05-21] MEDS: POTASSIUM CHLORIDE (SR) 20 MEQ TAB PO (09:28)
[2019-05-21] MEDS: POTASSIUM CHLORIDE 100 ML IVPB ×2 (11:42→15:07)
[2019-05-21 14:45] LABS: INR 3.09; PROTIME 31.9 Sec (11.9-14.9); PT RATIO 2.5
[2019-05-21] MEDS: METOCLOPRAMIDE 5 MG TAB PO ×2 (15:01→21:53)
[2019-05-21] MEDS: HYDROmorphONE 1 MG/ML SYG IV ×2 (17:17→23:35)
[2019-05-21] MEDS: PHYTONADIONE 5 MG in DEXTROSE 5% 50 ML IVPB (17:19)
[2019-05-22] MEDS: morphine 2 MG INJ IV ×4 (02:25→21:33)
[2019-05-22] MEDS: ONDANSETRON 4 MG INJ IV ×3 (03:39→22:28)
[2019-05-22] MEDS: HYDROmorphONE 1 MG/ML SYG IV ×3 (03:40→22:51)
[2019-05-22] MEDS: PANTOPRAZOLE 40 MG INJ IV ×2 (06:06→17:21)
[2019-05-22 06:09] LABS: ADD MAN DIFF? NO
[2019-05-22] MEDS: FUROSEMIDE 40 MG TAB PO (06:09)
[2019-05-22 06:13] LABS: WHITE BLOOD COUNT 4.5 10^3/ul (4.8-10.8)
[2019-05-22 06:13] LABS: BASOPHIL # 0.1 10^3/ul (0.0-0.1); BASOPHILS % 1.6 % (0.0-2.0); EOSINOPHILS # 0.6 10^3/ul (0.0-0.5); EOSINOPHILS % 12.5 % (0.0-7.0); HEMATOCRIT 32.5 % (37.0-47.0); HEMOGLOBIN 9.5 g/dl (12.0-16.0); LYMPHOCYTES # 0.8 10^3/ul (0.8-2.9); LYMPHOCYTES % 18.6 % (15.0-51.0); MEAN CORPUSCULAR HEMOGLOBIN 22.6 pg (29.0-33.0); MEAN CORPUSCULAR HGB CONC 29.2 g/dl (32.0-37.0); MEAN CORPUSCULAR VOLUME 77.2 fl (82.0-101.0); MEAN PLATELET VOLUME 9.6 fl (7.4-10.4); MONOCYTE # 1.3 10^3/ul (0.3-0.9); MONOCYTES % 29.5 % (0.0-11.0); NEUTROPHIL # 1.7 10^3/ul (1.6-7.5); NEUTROPHILS % 37.6 % (39.0-77.0); NUCLEATED RED BLOOD CELLS # 0.1 10^3/ul (0.0-0.0); NUCLEATED RED BLOOD CELLS% 2.2 /100WBC (0.0-0.0); PLATELET COUNT 470 10^3/UL (140-415); RED BLOOD COUNT 4.21 10^6/ul (4.20-5.40); RED CELL DISTRIBUTION WIDTH 20.4 % (11.5-14.5)
[2019-05-22 06:35] LABS: INR 2.18; PROTIME 24.3 Sec (11.9-14.9); PT RATIO 1.9
[2019-05-22 06:55] LABS: MAGNESIUM 1.8 mg/dl (1.7-2.5)
[2019-05-22 06:55] LABS: PHOSPHORUS 3.1 mg/dl (2.5-4.9)
[2019-05-22 06:59] LABS: ANION GAP 6 (5-13); BLOOD UREA NITROGEN 2 mg/dl (7-20); CALCIUM 8.3 mg/dl (8.4-10.2); CARBON DIOXIDE 28 mmol/L (21-31); CHLORIDE 104 mmol/L (97-110); CREATININE 0.55 mg/dl (0.44-1.00); Estimated GFR > 60 mL/min (>60); GLUCOSE 92 mg/dl (70-220); POTASSIUM 3.8 mmol/L (3.5-5.1); SODIUM 138 mmol/L (135-144)
[2019-05-22] MEDS: SUCRALFATE (100 MG/ML) 10ML CUP PO ×4 (08:17→21:12)
[2019-05-22] MEDS: COLCHICINE 0.6 MG CAP PO ×2 (08:17→21:13)
[2019-05-22] MEDS: METOCLOPRAMIDE 5 MG TAB PO ×2 (08:18→21:16)
[2019-05-22] MEDS: SPIRONOLACTONE 25 MG TAB PO ×2 (08:19→21:14)
[2019-05-22] MEDS: MAGNESIUM OXIDE 400 MG TAB PO ×2 (08:20→21:13)
[2019-05-22] MEDS: AZATHIOPRINE 50 MG TAB PO (08:20)
[2019-05-22] MEDS: AMLODIPINE 10 MG TAB PO (08:21)
[2019-05-22] MEDS: NADOLOL 40 MG TAB PO ×2 (08:22→21:12)
[2019-05-22] MEDS: POLYETHYLENE GLYCOL 17 GM PACKET PO (09:00)
[2019-05-22] MEDS: ALBUMIN HUMAN 25% 50 ML IV (21:12)
[2019-05-22] MEDS: SOD CHLORIDE 0.9% 250 ML IV* (22:38)
[2019-05-22] MEDS: DIPHENHYDRAMINE 50 MG CAP PO (22:46)
[2019-05-23 01:36] LABS: IMMEDIATE SPIN CROSSMATCH 1 1
[2019-05-23] MEDS: ALBUMIN HUMAN 25% 50 ML IV ×2 (04:39→12:13)
[2019-05-23] MEDS: PANTOPRAZOLE 40 MG INJ IV ×2 (05:58→17:02)
[2019-05-23] MEDS: FUROSEMIDE 40 MG TAB PO (05:59)
[2019-05-23] MEDS: morphine 2 MG INJ IV ×3 (06:06→15:28)
[2019-05-23] MEDS: ONDANSETRON 4 MG INJ IV ×2 (06:06→17:02)
[2019-05-23 06:20] LABS: ADD MAN DIFF? NO
[2019-05-23 06:22] LABS: WHITE BLOOD COUNT 3.7 10^3/ul (4.8-10.8)
[2019-05-23 06:22] LABS: BASOPHIL # 0.1 10^3/ul (0.0-0.1); BASOPHILS % 1.4 % (0.0-2.0); EOSINOPHILS # 0.5 10^3/ul (0.0-0.5); EOSINOPHILS % 13.8 % (0.0-7.0); HEMATOCRIT 27.1 % (37.0-47.0); HEMOGLOBIN 8.2 g/dl (12.0-16.0); LYMPHOCYTES % 26.8 % (15.0-51.0); MEAN CORPUSCULAR HEMOGLOBIN 23.1 pg (29.0-33.0); MEAN CORPUSCULAR HGB CONC 30.3 g/dl (32.0-37.0); MEAN CORPUSCULAR VOLUME 76.3 fl (82.0-101.0); MEAN PLATELET VOLUME 9.8 fl (7.4-10.4); MONOCYTES % 28.2 % (0.0-11.0); NEUTROPHIL # 1.1 10^3/ul (1.6-7.5); NEUTROPHILS % 29.5 % (39.0-77.0); NUCLEATED RED BLOOD CELLS # 0.1 10^3/ul (0.0-0.0); NUCLEATED RED BLOOD CELLS% 2.2 /100WBC (0.0-0.0); PLATELET COUNT 474 10^3/UL (140-415); RED BLOOD COUNT 3.55 10^6/ul (4.20-5.40); RED CELL DISTRIBUTION WIDTH 20.1 % (11.5-14.5)
[2019-05-23 06:42] LABS: INR 1.51; PROTIME 18.3 Sec (11.9-14.9); PT RATIO 1.4
[2019-05-23 07:00] LABS: ANION GAP 7 (5-13); CALCIUM 8.4 mg/dl (8.4-10.2); CARBON DIOXIDE 27 mmol/L (21-31); CHLORIDE 102 mmol/L (97-110); CREATININE 0.51 mg/dl (0.44-1.00); Estimated GFR > 60 mL/min (>60); GLUCOSE 65 mg/dl (70-220); MAGNESIUM 1.8 mg/dl (1.7-2.5); POTASSIUM 3.4 mmol/L (3.5-5.1); SODIUM 136 mmol/L (135-144)
[2019-05-23 07:00] LABS: PHOSPHORUS 3.4 mg/dl (2.5-4.9)
[2019-05-23 07:25] LABS: BLOOD UREA NITROGEN < 2 mg/dl (7-20)
[2019-05-23] MEDS: LIDOCAINE 1% (MPF) 5 ML VIAL (10:14)
[2019-05-23] MEDS: SUCRALFATE (100 MG/ML) 10ML CUP PO ×4 (10:21→22:23)
[2019-05-23] MEDS: NADOLOL 40 MG TAB PO ×2 (10:21→22:27)
[2019-05-23] MEDS: AMLODIPINE 5 MG TAB PO (10:21)
[2019-05-23] MEDS: AZATHIOPRINE 50 MG TAB PO (10:22)
[2019-05-23] MEDS: COLCHICINE 0.6 MG CAP PO ×2 (10:22→22:23)
[2019-05-23] MEDS: POLYETHYLENE GLYCOL 17 GM PACKET PO (10:22)
[2019-05-23] MEDS: SPIRONOLACTONE 25 MG TAB PO ×2 (10:22→22:23)
[2019-05-23] MEDS: MAGNESIUM OXIDE 400 MG TAB PO ×2 (10:22→22:22)
[2019-05-23] MEDS: METOCLOPRAMIDE 5 MG TAB PO ×3 (10:22→22:23)
[2019-05-23] MEDS: HYDROmorphONE 1 MG/ML SYG IV ×3 (12:30→22:28)
[2019-05-23] MEDS: ALBUMIN HUMAN 25% 100 ML IV ×2 (14:03→22:21)
[2019-05-24] MEDS: HYDROmorphONE 1 MG/ML SYG IV ×5 (04:29→22:06)
[2019-05-24] MEDS: ONDANSETRON 4 MG INJ IV ×2 (04:29→17:14)
[2019-05-24 05:42] LABS: ADD MAN DIFF? NO
[2019-05-24 05:56] LABS: ABNORMAL IP MESSAGE 1; BASOPHILS % 1.1 % (0.0-2.0); EOSINOPHILS # 0.5 10^3/ul (0.0-0.5); EOSINOPHILS % 14.2 % (0.0-7.0); HEMATOCRIT 27.2 % (37.0-47.0); HEMOGLOBIN 8.2 g/dl (12.0-16.0); LYMPHOCYTES % 28.1 % (15.0-51.0); MEAN CORPUSCULAR HGB CONC 30.1 g/dl (32.0-37.0); MEAN CORPUSCULAR VOLUME 76.4 fl (82.0-101.0); MONOCYTE # 1.2 10^3/ul (0.3-0.9); MONOCYTES % 33.1 % (0.0-11.0); NEUTROPHIL # 0.8 10^3/ul (1.6-7.5); NEUTROPHILS % 23.2 % (39.0-77.0); NUCLEATED RED BLOOD CELLS # 0.1 10^3/ul (0.0-0.0); NUCLEATED RED BLOOD CELLS% 1.7 /100WBC (0.0-0.0); PLATELET COUNT 424 10^3/UL (140-415); RED BLOOD COUNT 3.56 10^6/ul (4.20-5.40); RED CELL DISTRIBUTION WIDTH 20.2 % (11.5-14.5)
[2019-05-24 05:56] LABS: WHITE BLOOD COUNT 3.6 10^3/ul (4.8-10.8)
[2019-05-24 06:01] LABS: POSITIVE DIFF @See below
[2019-05-24 06:21] LABS: ALANINE AMINOTRANSFERASE 43 IU/L (13-69); ALBUMIN 2.9 g/dl (3.3-4.9); ALKALINE PHOSPHATASE 92 IU/L (42-121); ASPARTATE AMINO TRANSFERASE 102 IU/L (15-46); TOTAL PROTEIN 5.8 g/dl (6.1-8.1)
[2019-05-24] MEDS: PANTOPRAZOLE 40 MG INJ IV ×2 (06:21→17:20)
[2019-05-24] MEDS: FUROSEMIDE 40 MG TAB PO (06:22)
[2019-05-24 06:36] LABS: ALANINE AMINOTRANSFERASE 48 IU/L (13-69); ALBUMIN 2.9 g/dl (3.3-4.9); ALBUMIN/GLOBULIN RATIO 1.03; ALKALINE PHOSPHATASE 90 IU/L (42-121); ANION GAP 7 (5-13); ASPARTATE AMINO TRANSFERASE 104 IU/L (15-46); CALCIUM 8.6 mg/dl (8.4-10.2); CARBON DIOXIDE 28 mmol/L (21-31); CHLORIDE 102 mmol/L (97-110); CREATININE 0.56 mg/dl (0.44-1.00); Estimated GFR > 60 mL/min (>60); GLUCOSE 68 mg/dl (70-220); POTASSIUM 3.4 mmol/L (3.5-5.1); SODIUM 137 mmol/L (135-144); TOTAL PROTEIN 5.7 g/dl (6.1-8.1)
[2019-05-24 06:41] LABS: BLOOD UREA NITROGEN < 2 mg/dl (7-20)
[2019-05-24] MEDS: AZATHIOPRINE 50 MG TAB PO (08:57)
[2019-05-24] MEDS: SUCRALFATE (100 MG/ML) 10ML CUP PO ×4 (08:57→22:05)
[2019-05-24] MEDS: MAGNESIUM OXIDE 400 MG TAB PO ×2 (08:59→22:05)
[2019-05-24] MEDS: AMLODIPINE 5 MG TAB PO (08:59)
[2019-05-24] MEDS: NADOLOL 40 MG TAB PO ×2 (09:00→22:04)
[2019-05-24] MEDS: SPIRONOLACTONE 25 MG TAB PO ×2 (09:00→22:05)
[2019-05-24] MEDS: POLYETHYLENE GLYCOL 17 GM PACKET PO (09:00)
[2019-05-24] MEDS: COLCHICINE 0.6 MG CAP PO ×2 (09:00→22:05)
[2019-05-24] MEDS: METOCLOPRAMIDE 5 MG TAB PO ×3 (09:01→22:03)
[2019-05-24] MEDS: LIDOCAINE/MYLANTA 40 ML BTL PO (20:16)
[2019-05-25] MEDS: ONDANSETRON 4 MG INJ IV ×3 (04:52→20:07)
[2019-05-25] MEDS: HYDROmorphONE 1 MG/ML SYG IV ×4 (04:52→19:53)
[2019-05-25] MEDS: PANTOPRAZOLE 40 MG INJ IV ×2 (05:57→19:56)
[2019-05-25] MEDS: LIDOCAINE/MYLANTA 40 ML BTL PO (05:58)
[2019-05-25 06:31] LABS: ADD MAN DIFF? NO
[2019-05-25 06:32] LABS: ABNORMAL IP MESSAGE 1; BASOPHIL # 0.1 10^3/ul (0.0-0.1); BASOPHILS % 1.8 % (0.0-2.0); EOSINOPHILS # 0.4 10^3/ul (0.0-0.5); HEMATOCRIT 28.8 % (37.0-47.0); HEMOGLOBIN 8.7 g/dl (12.0-16.0); LYMPHOCYTES # 0.9 10^3/ul (0.8-2.9); LYMPHOCYTES % 31.9 % (15.0-51.0); MEAN CORPUSCULAR HGB CONC 30.2 g/dl (32.0-37.0); MEAN CORPUSCULAR VOLUME 76.2 fl (82.0-101.0); MONOCYTE # 0.9 10^3/ul (0.3-0.9); MONOCYTES % 30.8 % (0.0-11.0); NEUTROPHIL # 0.6 10^3/ul (1.6-7.5); NEUTROPHILS % 21.1 % (39.0-77.0); NUCLEATED RED BLOOD CELLS # 0.1 10^3/ul (0.0-0.0); NUCLEATED RED BLOOD CELLS% 2.9 /100WBC (0.0-0.0); PLATELET COUNT 399 10^3/UL (140-415); RED BLOOD COUNT 3.78 10^6/ul (4.20-5.40); RED CELL DISTRIBUTION WIDTH 20.6 % (11.5-14.5)
[2019-05-25 06:32] LABS: WHITE BLOOD COUNT 2.8 10^3/ul (4.8-10.8)
[2019-05-25 06:45] LABS: POSITIVE DIFF @See below
[2019-05-25 06:54] LABS: INR 1.67; PROTIME 19.8 Sec (11.9-14.9); PT RATIO 1.5
[2019-05-25 06:57] LABS: LACTIC ACID 1.2 mmol/L (0.5-2.0)
[2019-05-25 07:11] LABS: LIPASE 22 U/L (23-300)
[2019-05-25 07:15] LABS: TROPONIN-I < 0.012 ng/ml (0.000-0.120)
[2019-05-25 07:22] LABS: ALANINE AMINOTRANSFERASE 51 IU/L (13-69); ALBUMIN 2.8 g/dl (3.3-4.9); ALBUMIN/GLOBULIN RATIO 0.87; ALKALINE PHOSPHATASE 104 IU/L (42-121); ANION GAP 9 (5-13); ASPARTATE AMINO TRANSFERASE 114 IU/L (15-46); BILIRUBIN,INDIRECT 0.8 mg/dl (0-1.1); BILIRUBIN,TOTAL 0.8 mg/dl (0.2-1.3); CALCIUM 8.5 mg/dl (8.4-10.2); CARBON DIOXIDE 26 mmol/L (21-31); CHLORIDE 102 mmol/L (97-110); CREATININE 0.55 mg/dl (0.44-1.00); Estimated GFR > 60 mL/min (>60); GLUCOSE 71 mg/dl (70-220); POTASSIUM 3.3 mmol/L (3.5-5.1); SODIUM 137 mmol/L (135-144)
[2019-05-25 07:36] LABS: BLOOD UREA NITROGEN < 2 mg/dl (7-20)
[2019-05-25] MEDS: METOCLOPRAMIDE 5 MG TAB PO ×3 (08:07→20:00)
[2019-05-25] MEDS: COLCHICINE 0.6 MG CAP PO ×2 (08:07→20:00)
[2019-05-25] MEDS: SUCRALFATE (100 MG/ML) 10ML CUP PO ×4 (08:07→20:00)
[2019-05-25] MEDS: SPIRONOLACTONE 25 MG TAB PO ×2 (08:07→20:00)
[2019-05-25] MEDS: MAGNESIUM OXIDE 400 MG TAB PO ×2 (08:07→20:00)
[2019-05-25] MEDS: AZATHIOPRINE 50 MG TAB PO (08:08)
[2019-05-25] MEDS: NADOLOL 40 MG TAB PO ×2 (08:08→20:03)
[2019-05-25] MEDS: AMLODIPINE 5 MG TAB PO (08:08)
[2019-05-25] MEDS: POLYETHYLENE GLYCOL 17 GM PACKET PO (08:08)
[2019-05-25] MEDS ORDERED: AMLODIPINE 10 MG TAB PO (09:00)
[2019-05-25] MEDS ORDERED: ONDANSETRON 4 MG INJ IV (18:30)
[2019-05-25] MEDS ORDERED: hydrALAzine 20 MG INJ IV (18:30)
[2019-05-25] MEDS ORDERED: DIPHENHYDRAMINE 50 MG INJ IV (18:30)
[2019-05-25] MEDS ORDERED: MEPERIDINE 25 MG INJ IV (18:30)
[2019-05-25] MEDS ORDERED: FENTAnyl 50 MCG/ML VIAL IV (18:30)
[2019-05-25] MEDS ORDERED: PROCHLORPERAZINE 10 MG INJ IV (18:30)
[2019-05-25] MEDS ORDERED: HYDROmorphONE 1 MG/5 ML IV SYRINGE IV (18:30)
[2019-05-25] MEDS ORDERED: EPHEDrine 25 MG/5 ML SYG IV (18:30)
[2019-05-26] MEDS: HYDROmorphONE 1 MG/ML SYG IV ×6 (00:21→23:30)
[2019-05-26] MEDS: ONDANSETRON 4 MG INJ IV ×4 (02:26→21:44)
[2019-05-26] MEDS: PANTOPRAZOLE 40 MG INJ IV ×2 (05:25→17:47)
[2019-05-26] MEDS: LIDOCAINE/MYLANTA 40 ML BTL PO ×3 (05:42→23:27)
[2019-05-26] MEDS: MAGNESIUM OXIDE 400 MG TAB PO ×2 (08:58→20:51)
[2019-05-26] MEDS: NADOLOL 40 MG TAB PO ×2 (08:58→20:56)
[2019-05-26] MEDS: AMLODIPINE 5 MG TAB PO (08:59)
[2019-05-26] MEDS: SPIRONOLACTONE 25 MG TAB PO ×2 (08:59→20:51)
[2019-05-26] MEDS: COLCHICINE 0.6 MG CAP PO (08:59)
[2019-05-26] MEDS: METOCLOPRAMIDE 5 MG TAB PO ×3 (09:00→20:51)
[2019-05-26] MEDS: POLYETHYLENE GLYCOL 17 GM PACKET PO (09:00)
[2019-05-26] MEDS: AZATHIOPRINE 50 MG TAB PO (09:00)
[2019-05-26] MEDS: SUCRALFATE (100 MG/ML) 10ML CUP PO ×4 (09:01→20:51)
[2019-05-26] MEDS ORDERED: ONDANSETRON 4 MG INJ (15:53)
[2019-05-26] MEDS: HYOSCYAMINE 0.125 MG SUBL TAB PO ×2 (17:47→21:43)
[2019-05-26] MEDS ORDERED: ONDANSETRON 4 MG INJ IV (18:00)
[2019-05-26] MEDS: POTASSIUM CHLORIDE 100 ML IVPB (19:31)
[2019-05-27] MEDS: ONDANSETRON 4 MG INJ IV ×4 (03:56→22:16)
[2019-05-27] MEDS: HYDROmorphONE 1 MG/ML SYG IV ×5 (03:59→22:42)
[2019-05-27] MEDS: HYOSCYAMINE 0.125 MG SUBL TAB PO ×3 (06:07→22:16)
[2019-05-27] MEDS: LIDOCAINE/MYLANTA 40 ML BTL PO (06:07)
[2019-05-27] MEDS: PANTOPRAZOLE 40 MG INJ IV ×2 (06:10→17:19)
[2019-05-27 07:20] LABS: ADD MAN DIFF? NO
[2019-05-27 07:31] LABS: WHITE BLOOD COUNT 4.5 10^3/ul (4.8-10.8)
[2019-05-27 07:31] LABS: BASOPHIL # 0.1 10^3/ul (0.0-0.1); BASOPHILS % 1.1 % (0.0-2.0); EOSINOPHILS # 0.3 10^3/ul (0.0-0.5); EOSINOPHILS % 7.3 % (0.0-7.0); HEMATOCRIT 30.2 % (37.0-47.0); HEMOGLOBIN 8.9 g/dl (12.0-16.0); LYMPHOCYTES # 0.7 10^3/ul (0.8-2.9); LYMPHOCYTES % 15.3 % (15.0-51.0); MEAN CORPUSCULAR HEMOGLOBIN 22.5 pg (29.0-33.0); MEAN CORPUSCULAR HGB CONC 29.5 g/dl (32.0-37.0); MEAN CORPUSCULAR VOLUME 76.3 fl (82.0-101.0); MEAN PLATELET VOLUME 10.3 fl (7.4-10.4); MONOCYTE # 0.8 10^3/ul (0.3-0.9); NEUTROPHIL # 2.6 10^3/ul (1.6-7.5); NEUTROPHILS % 58.1 % (39.0-77.0); NUCLEATED RED BLOOD CELLS # 0.1 10^3/ul (0.0-0.0); NUCLEATED RED BLOOD CELLS% 2.7 /100WBC (0.0-0.0); PLATELET COUNT 402 10^3/UL (140-415); RED BLOOD COUNT 3.96 10^6/ul (4.20-5.40); RED CELL DISTRIBUTION WIDTH 21.5 % (11.5-14.5)
[2019-05-27 07:52] LABS: ANION GAP 7 (5-13); BLOOD UREA NITROGEN 3 mg/dl (7-20); CALCIUM 8.7 mg/dl (8.4-10.2); CARBON DIOXIDE 28 mmol/L (21-31); CHLORIDE 102 mmol/L (97-110); CREATININE 0.59 mg/dl (0.44-1.00); Estimated GFR > 60 mL/min (>60); GLUCOSE 64 mg/dl (70-220); SODIUM 137 mmol/L (135-144)
[2019-05-27 07:54] LABS: MAGNESIUM 1.9 mg/dl (1.7-2.5)
[2019-05-27] MEDS: SUCRALFATE (100 MG/ML) 10ML CUP PO ×4 (08:31→21:02)
[2019-05-27] MEDS: POLYETHYLENE GLYCOL 17 GM PACKET PO (08:31)
[2019-05-27] MEDS: SPIRONOLACTONE 25 MG TAB PO ×2 (08:31→21:02)
[2019-05-27] MEDS: COLCHICINE 0.6 MG CAP PO (08:32)
[2019-05-27] MEDS: AZATHIOPRINE 50 MG TAB PO (08:32)
[2019-05-27] MEDS: METOCLOPRAMIDE 5 MG TAB PO ×3 (08:34→21:03)
[2019-05-27] MEDS: NADOLOL 40 MG TAB PO ×2 (08:34→21:03)
[2019-05-27] MEDS: APIXABAN 5 MG TABLET PO ×2 (08:34→21:03)
[2019-05-27] MEDS: POTASSIUM CHLORIDE 20 MEQ POWDER FOR ORAL SOLN PO (08:35)
[2019-05-27] MEDS: MAGNESIUM OXIDE 400 MG TAB PO ×2 (08:38→21:03)
[2019-05-28] MEDS: HYDROmorphONE 1 MG/ML SYG IV ×5 (04:30→22:01)
[2019-05-28] MEDS: ONDANSETRON 4 MG INJ IV ×4 (04:30→22:01)
[2019-05-28] MEDS: HYOSCYAMINE 0.125 MG SUBL TAB PO ×3 (05:27→22:01)
[2019-05-28] MEDS: PANTOPRAZOLE 40 MG INJ IV ×2 (05:28→17:40)
[2019-05-28] MEDS: POLYETHYLENE GLYCOL 17 GM PACKET PO (09:00)
[2019-05-28] MEDS: METOCLOPRAMIDE 5 MG TAB PO (09:03)
[2019-05-28] MEDS: MAGNESIUM OXIDE 400 MG TAB PO ×2 (09:03→23:38)
[2019-05-28] MEDS: POTASSIUM CHLORIDE 20 MEQ POWDER FOR ORAL SOLN PO (09:03)
[2019-05-28] MEDS: SUCRALFATE (100 MG/ML) 10ML CUP PO ×4 (09:03→23:39)
[2019-05-28] MEDS: SPIRONOLACTONE 25 MG TAB PO ×2 (09:03→23:38)
[2019-05-28] MEDS: COLCHICINE 0.6 MG CAP PO (09:03)
[2019-05-28] MEDS: APIXABAN 5 MG TABLET PO ×2 (09:04→23:38)
[2019-05-28] MEDS: NADOLOL 40 MG TAB PO ×2 (09:04→23:38)
[2019-05-28] MEDS: AZATHIOPRINE 50 MG TAB PO (09:04)
[2019-05-28] MEDS: LIDOCAINE 2% (SDV) 5 ML INJ (09:05)
[2019-05-28] MEDS: PROPOFOL 20 ML ×2 (09:05→09:06)
[2019-05-28] MEDS: EPHEDrine 25 MG/5 ML SYG (09:05)
[2019-05-28] MEDS: METOCLOPRAMIDE 10 MG INJ IV ×2 (12:27→17:40)
[2019-05-29] MEDS: METOCLOPRAMIDE 10 MG INJ IV ×4 (00:13→17:50)
[2019-05-29] MEDS: HYDROmorphONE 1 MG/ML SYG IV ×5 (03:00→22:36)
[2019-05-29] MEDS: ONDANSETRON 4 MG INJ IV ×4 (04:30→21:22)
[2019-05-29 05:01] LABS: ADD MAN DIFF? NO
[2019-05-29 05:12] LABS: ABNORMAL IP MESSAGE 1; EOSINOPHILS # 0.4 10^3/ul (0.0-0.5); EOSINOPHILS % 9.2 % (0.0-7.0); HEMATOCRIT 29.8 % (37.0-47.0); HEMOGLOBIN 8.9 g/dl (12.0-16.0); LYMPHOCYTES # 0.8 10^3/ul (0.8-2.9); LYMPHOCYTES % 20.2 % (15.0-51.0); MEAN CORPUSCULAR HGB CONC 29.9 g/dl (32.0-37.0); MEAN PLATELET VOLUME 10.4 fl (7.4-10.4); MONOCYTE # 0.7 10^3/ul (0.3-0.9); MONOCYTES % 19.4 % (0.0-11.0); NEUTROPHIL # 1.9 10^3/ul (1.6-7.5); NEUTROPHILS % 49.9 % (39.0-77.0); NUCLEATED RED BLOOD CELLS # 0.2 10^3/ul (0.0-0.0); NUCLEATED RED BLOOD CELLS% 5.2 /100WBC (0.0-0.0); PLATELET COUNT 363 10^3/UL (140-415); RED BLOOD COUNT 3.87 10^6/ul (4.20-5.40); RED CELL DISTRIBUTION WIDTH 22.5 % (11.5-14.5)
[2019-05-29 05:12] LABS: WHITE BLOOD COUNT 3.8 10^3/ul (4.8-10.8)
[2019-05-29 05:30] LABS: LIPASE 15 U/L (23-300)
[2019-05-29 05:30] LABS: ALANINE AMINOTRANSFERASE 34 IU/L (13-69); ALBUMIN 2.7 g/dl (3.3-4.9); ALBUMIN/GLOBULIN RATIO 0.79; ALKALINE PHOSPHATASE 111 IU/L (42-121); ANION GAP 8 (5-13); ASPARTATE AMINO TRANSFERASE 36 IU/L (15-46); BILIRUBIN,INDIRECT 0.7 mg/dl (0-1.1); BILIRUBIN,TOTAL 0.7 mg/dl (0.2-1.3); BLOOD UREA NITROGEN 3 mg/dl (7-20); CALCIUM 8.8 mg/dl (8.4-10.2); CARBON DIOXIDE 26 mmol/L (21-31); CHLORIDE 103 mmol/L (97-110); CREATININE 0.68 mg/dl (0.44-1.00); Estimated GFR > 60 mL/min (>60); GLUCOSE 76 mg/dl (70-220); POTASSIUM 3.8 mmol/L (3.5-5.1); SODIUM 137 mmol/L (135-144); TOTAL PROTEIN 6.1 g/dl (6.1-8.1)
[2019-05-29 05:32] LABS: INR 2.49; PT RATIO 2.1
[2019-05-29] MEDS: PANTOPRAZOLE 40 MG INJ IV ×2 (05:36→17:50)
[2019-05-29] MEDS: HYOSCYAMINE 0.125 MG SUBL TAB PO ×3 (05:36→21:22)
[2019-05-29 06:11] LABS: POSITIVE DIFF @See below
[2019-05-29] MEDS: MAGNESIUM OXIDE 400 MG TAB PO ×2 (09:00→21:23)
[2019-05-29] MEDS: POLYETHYLENE GLYCOL 17 GM PACKET PO (09:00)
[2019-05-29] MEDS: NADOLOL 40 MG TAB PO ×2 (09:00→21:00)
[2019-05-29] MEDS: AZATHIOPRINE 50 MG TAB PO (09:00)
[2019-05-29] MEDS: SPIRONOLACTONE 25 MG TAB PO ×2 (09:00→21:23)
[2019-05-29] MEDS: POTASSIUM CHLORIDE 20 MEQ POWDER FOR ORAL SOLN PO (09:00)
[2019-05-29] MEDS: COLCHICINE 0.6 MG CAP PO (09:00)
[2019-05-29] MEDS: SUCRALFATE (100 MG/ML) 10ML CUP PO ×4 (09:00→21:23)
[2019-05-29] MEDS: APIXABAN 5 MG TABLET PO ×2 (11:25→21:23)
[2019-05-29] MEDS: IOHEXOL 14.3 MG(I)/ML (ADULT) BTL PO (12:49)
[2019-05-29] MEDS: SCOPOLAMINE 1.5 MG PATCH TRANSDERM (12:50)
[2019-05-29] MEDS: SOD CHLORIDE 0.9% 100 ML (18:22)
[2019-05-29] MEDS: IOHEXOL 300MG/ML 150 ML BTL (18:22)
[2019-05-30] MEDS: METOCLOPRAMIDE 10 MG INJ IV ×3 (00:45→12:21)
[2019-05-30] MEDS: ONDANSETRON 4 MG INJ IV ×4 (04:40→22:36)
[2019-05-30] MEDS: HYDROmorphONE 1 MG/ML SYG IV ×5 (04:40→21:52)
[2019-05-30] MEDS: HYOSCYAMINE 0.125 MG SUBL TAB PO ×3 (05:20→22:36)
[2019-05-30] MEDS: PANTOPRAZOLE 40 MG INJ IV ×2 (05:20→17:26)
[2019-05-30 07:12] LABS: INR 2.03; PT RATIO 1.8
[2019-05-30 07:24] LABS: ANION GAP 9 (5-13); BLOOD UREA NITROGEN 3 mg/dl (7-20); CARBON DIOXIDE 25 mmol/L (21-31); CHLORIDE 101 mmol/L (97-110); CREATININE 0.62 mg/dl (0.44-1.00); Estimated GFR > 60 mL/min (>60); GLUCOSE 73 mg/dl (70-220); MAGNESIUM 1.7 mg/dl (1.7-2.5); SODIUM 135 mmol/L (135-144)
[2019-05-30] MEDS: SUCRALFATE (100 MG/ML) 10ML CUP PO ×4 (08:41→21:52)
[2019-05-30] MEDS: POLYETHYLENE GLYCOL 17 GM PACKET PO (08:41)
[2019-05-30] MEDS: APIXABAN 5 MG TABLET PO ×2 (08:42→20:19)
[2019-05-30] MEDS: NADOLOL 40 MG TAB PO ×2 (08:42→20:18)
[2019-05-30] MEDS: POTASSIUM CHLORIDE 20 MEQ POWDER FOR ORAL SOLN PO (08:44)
[2019-05-30] MEDS: MAGNESIUM OXIDE 400 MG TAB PO ×2 (08:44→20:19)
[2019-05-30] MEDS: COLCHICINE 0.6 MG CAP PO (08:45)
[2019-05-30] MEDS: SPIRONOLACTONE 25 MG TAB PO ×2 (08:45→20:19)
[2019-05-30] MEDS: AZATHIOPRINE 50 MG TAB PO (08:45)
[2019-05-30] MEDS ORDERED: POLYETHYLENE GLYCOL 17 GM PACKET PO (10:00)
[2019-05-30] MEDS ORDERED: PROCHLORPERAZINE 5 MG TAB NGT (13:00)
[2019-05-30] MEDS: PROCHLORPERAZINE 5 MG TAB PO ×2 (13:31→20:18)
[2019-05-30] MEDS: MAGNESIUM SULFATE 2 GM/50 ML 50 ML IVPB (16:03)
[2019-05-31] MEDS: HYDROmorphONE 1 MG/ML SYG IV ×5 (01:52→20:03)
[2019-05-31] MEDS: ONDANSETRON 4 MG INJ IV ×4 (04:09→23:13)
[2019-05-31] MEDS ORDERED: PANTOPRAZOLE 40 MG INJ IV (04:30)
[2019-05-31] MEDS: PANTOPRAZOLE 40 MG INJ IV (04:47)
[2019-05-31] MEDS: PANTOPRAZOLE IV 80 MG in SOD CHLORIDE 0.9% 100 ML IV ×2 (05:01→13:57)
[2019-05-31] MEDS: HYOSCYAMINE 0.125 MG SUBL TAB PO ×3 (06:11→23:12)
[2019-05-31 06:43] LABS: ADD MAN DIFF? NO
[2019-05-31 06:47] LABS: ABNORMAL IP MESSAGE 1; BASOPHIL # 0.1 10^3/ul (0.0-0.1); BASOPHILS % 0.9 % (0.0-2.0); EOSINOPHILS # 0.2 10^3/ul (0.0-0.5); HEMATOCRIT 26.7 % (37.0-47.0); LYMPHOCYTES # 0.9 10^3/ul (0.8-2.9); MEAN CORPUSCULAR HEMOGLOBIN 22.9 pg (29.0-33.0); MEAN CORPUSCULAR VOLUME 76.5 fl (82.0-101.0); MEAN PLATELET VOLUME 9.7 fl (7.4-10.4); MONOCYTE # 0.6 10^3/ul (0.3-0.9); MONOCYTES % 11.5 % (0.0-11.0); NEUTROPHIL # 3.7 10^3/ul (1.6-7.5); NEUTROPHILS % 67.2 % (39.0-77.0); NUCLEATED RED BLOOD CELLS # 0.3 10^3/ul (0.0-0.0); NUCLEATED RED BLOOD CELLS% 4.7 /100WBC (0.0-0.0); PLATELET COUNT 346 10^3/UL (140-415); RED BLOOD COUNT 3.49 10^6/ul (4.20-5.40); RED CELL DISTRIBUTION WIDTH 22.6 % (11.5-14.5)
[2019-05-31 06:47] LABS: WHITE BLOOD COUNT 5.5 10^3/ul (4.8-10.8)
[2019-05-31 06:55] LABS: POSITIVE DIFF @See below
[2019-05-31 07:11] LABS: ANION GAP 6 (5-13); BLOOD UREA NITROGEN 4 mg/dl (7-20); CALCIUM 8.6 mg/dl (8.4-10.2); CARBON DIOXIDE 26 mmol/L (21-31); CHLORIDE 102 mmol/L (97-110); CREATININE 0.68 mg/dl (0.44-1.00); Estimated GFR > 60 mL/min (>60); GLUCOSE 90 mg/dl (70-220); POTASSIUM 3.7 mmol/L (3.5-5.1); SODIUM 134 mmol/L (135-144)
[2019-05-31] MEDS: SUCRALFATE (100 MG/ML) 10ML CUP PO ×4 (08:49→23:12)
[2019-05-31] MEDS: POTASSIUM CHLORIDE 20 MEQ POWDER FOR ORAL SOLN PO (08:50)
[2019-05-31] MEDS: COLCHICINE 0.6 MG CAP PO (08:50)
[2019-05-31] MEDS: NADOLOL 40 MG TAB PO ×2 (08:51→23:16)
[2019-05-31] MEDS: MAGNESIUM OXIDE 400 MG TAB PO ×2 (08:51→23:13)
[2019-05-31] MEDS: AZATHIOPRINE 50 MG TAB PO (08:51)
[2019-05-31] MEDS: SPIRONOLACTONE 25 MG TAB PO ×2 (08:52→23:14)
[2019-05-31] MEDS: PROCHLORPERAZINE 5 MG TAB PO ×3 (08:52→23:13)
[2019-05-31 11:11] LABS: AMMONIA 108 umol/l (9-30)
[2019-05-31] MEDS: LACTULOSE 30ML CUP PO ×4 (13:26→18:39)
[2019-05-31] MEDS: RIFAXIMIN 550 MG TAB PO (23:13)
[2019-06-01] MEDS: LACTULOSE 30ML CUP PO ×4 (00:12→17:16)
[2019-06-01] MEDS: HYDROmorphONE 1 MG/ML SYG IV ×5 (00:53→21:02)
[2019-06-01] MEDS: PANTOPRAZOLE IV 80 MG in SOD CHLORIDE 0.9% 100 ML IV ×3 (03:40→20:51)
[2019-06-01] MEDS: ONDANSETRON 4 MG INJ IV ×4 (05:21→21:02)
[2019-06-01] MEDS: HYOSCYAMINE 0.125 MG SUBL TAB PO ×3 (06:36→21:02)
[2019-06-01] MEDS: PROCHLORPERAZINE 5 MG TAB PO ×3 (08:46→20:51)
[2019-06-01] MEDS: AZATHIOPRINE 50 MG TAB PO (08:47)
[2019-06-01] MEDS: MAGNESIUM OXIDE 400 MG TAB PO ×2 (08:48→20:52)
[2019-06-01] MEDS: COLCHICINE 0.6 MG CAP PO (08:48)
[2019-06-01] MEDS: RIFAXIMIN 550 MG TAB PO ×2 (08:48→20:52)
[2019-06-01] MEDS: NADOLOL 40 MG TAB PO ×2 (08:50→20:52)
[2019-06-01] MEDS: SPIRONOLACTONE 25 MG TAB PO ×2 (08:51→20:51)
[2019-06-01] MEDS: POTASSIUM CHLORIDE 20 MEQ POWDER FOR ORAL SOLN PO (08:51)
[2019-06-01] MEDS: SUCRALFATE (100 MG/ML) 10ML CUP PO ×4 (08:52→20:51)
[2019-06-01] MEDS: SCOPOLAMINE 1.5 MG PATCH TRANSDERM (14:39)
[2019-06-01 14:46] LABS: AMMONIA 51 umol/l (9-30)
[2019-06-02] MEDS: HYDROmorphONE 1 MG/ML SYG IV ×5 (01:11→20:31)
[2019-06-02] MEDS: LACTULOSE 30ML CUP PO ×4 (01:11→20:32)
[2019-06-02] MEDS: ONDANSETRON 4 MG INJ IV ×4 (05:19→20:31)
[2019-06-02] MEDS: HYOSCYAMINE 0.125 MG SUBL TAB PO ×3 (05:19→20:30)
[2019-06-02] MEDS: PANTOPRAZOLE IV 80 MG in SOD CHLORIDE 0.9% 100 ML IV ×3 (05:45→18:15)
[2019-06-02 07:43] LABS: ANION GAP 7 (5-13); BLOOD UREA NITROGEN 6 mg/dl (7-20); CALCIUM 8.7 mg/dl (8.4-10.2); CARBON DIOXIDE 23 mmol/L (21-31); CHLORIDE 108 mmol/L (97-110); CREATININE 0.61 mg/dl (0.44-1.00); Estimated GFR > 60 mL/min (>60); GLUCOSE 80 mg/dl (70-220); POTASSIUM 3.6 mmol/L (3.5-5.1); SODIUM 138 mmol/L (135-144)
[2019-06-02] MEDS: POTASSIUM CHLORIDE 20 MEQ POWDER FOR ORAL SOLN PO (08:37)
[2019-06-02] MEDS: SUCRALFATE (100 MG/ML) 10ML CUP PO ×4 (08:37→20:28)
[2019-06-02] MEDS: PROCHLORPERAZINE 5 MG TAB PO ×3 (08:37→20:30)
[2019-06-02] MEDS: COLCHICINE 0.6 MG CAP PO (08:38)
[2019-06-02] MEDS: NADOLOL 40 MG TAB PO ×2 (08:38→20:29)
[2019-06-02] MEDS: MAGNESIUM OXIDE 400 MG TAB PO ×2 (08:38→20:30)
[2019-06-02] MEDS: RIFAXIMIN 550 MG TAB PO ×2 (08:38→20:30)
[2019-06-02] MEDS: AZATHIOPRINE 50 MG TAB PO (08:38)
[2019-06-02] MEDS: SPIRONOLACTONE 25 MG TAB PO ×2 (08:38→20:30)
[2019-06-02 17:55] LABS: HEMATOCRIT 26.1 % (37.0-47.0); HEMOGLOBIN 7.8 g/dl (12.0-16.0)
[2019-06-03] MEDS: HYDROmorphONE 1 MG/ML SYG IV ×4 (00:51→13:34)
[2019-06-03] MEDS: PANTOPRAZOLE IV 80 MG in SOD CHLORIDE 0.9% 100 ML IV ×2 (04:20→14:11)
[2019-06-03] MEDS: ONDANSETRON 4 MG INJ IV ×4 (04:59→16:17)
[2019-06-03] MEDS: HYOSCYAMINE 0.125 MG SUBL TAB PO ×3 (05:00→21:35)
[2019-06-03] MEDS: LACTULOSE 30ML CUP PO ×3 (05:00→21:34)
[2019-06-03 06:07] LABS: ADD MAN DIFF? NO
[2019-06-03 06:11] LABS: ABNORMAL IP MESSAGE 1; BASOPHIL # 0.1 10^3/ul (0.0-0.1); BASOPHILS % 0.6 % (0.0-2.0); EOSINOPHILS # 0.3 10^3/ul (0.0-0.5); HEMOGLOBIN 7.5 g/dl (12.0-16.0); MEAN CORPUSCULAR VOLUME 80.1 fl (82.0-101.0); MEAN PLATELET VOLUME 10.6 fl (7.4-10.4); MONOCYTE # 1.1 10^3/ul (0.3-0.9); MONOCYTES % 13.5 % (0.0-11.0); NEUTROPHIL # 5.3 10^3/ul (1.6-7.5); NUCLEATED RED BLOOD CELLS # 0.3 10^3/ul (0.0-0.0); NUCLEATED RED BLOOD CELLS% 3.5 /100WBC (0.0-0.0); PLATELET COUNT 298 10^3/UL (140-415); RED BLOOD COUNT 3.12 10^6/ul (4.20-5.40); RED CELL DISTRIBUTION WIDTH 24.7 % (11.5-14.5)
[2019-06-03 06:11] LABS: WHITE BLOOD COUNT 7.8 10^3/ul (4.8-10.8)
[2019-06-03 07:34] LABS: POSITIVE DIFF @See below
[2019-06-03] MEDS: SUCRALFATE (100 MG/ML) 10ML CUP PO ×4 (08:17→20:46)
[2019-06-03] MEDS: MAGNESIUM OXIDE 400 MG TAB PO ×2 (08:17→20:46)
[2019-06-03] MEDS: COLCHICINE 0.6 MG CAP PO (08:17)
[2019-06-03] MEDS: AZATHIOPRINE 50 MG TAB PO (08:17)
[2019-06-03] MEDS: SPIRONOLACTONE 25 MG TAB PO ×2 (08:17→20:46)
[2019-06-03] MEDS: RIFAXIMIN 550 MG TAB PO ×2 (08:17→20:43)
[2019-06-03] MEDS: PROCHLORPERAZINE 5 MG TAB PO ×3 (08:18→20:46)
[2019-06-03] MEDS: POTASSIUM CHLORIDE 20 MEQ POWDER FOR ORAL SOLN PO (08:18)
[2019-06-03] MEDS: NADOLOL 40 MG TAB PO ×2 (08:18→20:44)
[2019-06-03] MEDS ORDERED: PANTOPRAZOLE 40 MG INJ IV (18:00)
[2019-06-03] MEDS: HYDROmorphONE 2 MG TAB PO (20:46)
[2019-06-03] MEDS: ONDANSETRON 4 MG TAB PO (20:46)
[2019-06-04] MEDS: ONDANSETRON 4 MG INJ IV ×4 (00:47→17:08)
[2019-06-04] MEDS: HYDROmorphONE 1 MG/ML SYG IV ×5 (02:43→20:35)
[2019-06-04 05:27] LABS: ADD MAN DIFF? NO
[2019-06-04 05:34] LABS: ABNORMAL IP MESSAGE 1; BASOPHILS % 0.5 % (0.0-2.0); EOSINOPHILS # 0.3 10^3/ul (0.0-0.5); EOSINOPHILS % 3.7 % (0.0-7.0); HEMATOCRIT 23.9 % (37.0-47.0); HEMOGLOBIN 7.2 g/dl (12.0-16.0); LYMPHOCYTES # 0.9 10^3/ul (0.8-2.9); LYMPHOCYTES % 11.9 % (15.0-51.0); MEAN CORPUSCULAR HEMOGLOBIN 23.8 pg (29.0-33.0); MEAN CORPUSCULAR HGB CONC 30.1 g/dl (32.0-37.0); MEAN CORPUSCULAR VOLUME 78.9 fl (82.0-101.0); MEAN PLATELET VOLUME 10.2 fl (7.4-10.4); MONOCYTE # 1.3 10^3/ul (0.3-0.9); MONOCYTES % 17.2 % (0.0-11.0); NEUTROPHIL # 4.8 10^3/ul (1.6-7.5); NUCLEATED RED BLOOD CELLS # 0.2 10^3/ul (0.0-0.0); NUCLEATED RED BLOOD CELLS% 2.9 /100WBC (0.0-0.0); PLATELET COUNT 273 10^3/UL (140-415); RED BLOOD COUNT 3.03 10^6/ul (4.20-5.40); RED CELL DISTRIBUTION WIDTH 25.1 % (11.5-14.5)
[2019-06-04 05:34] LABS: WHITE BLOOD COUNT 7.3 10^3/ul (4.8-10.8)
[2019-06-04 05:40] LABS: POSITIVE DIFF @See below
[2019-06-04 05:50] LABS: INR 1.54; PROTIME 18.6 Sec (11.9-14.9); PT RATIO 1.5
[2019-06-04 05:59] LABS: ALANINE AMINOTRANSFERASE 26 IU/L (13-69); ALBUMIN 2.1 g/dl (3.3-4.9); ALBUMIN/GLOBULIN RATIO 0.63; ALKALINE PHOSPHATASE 95 IU/L (42-121); ANION GAP 4 (5-13); ASPARTATE AMINO TRANSFERASE 26 IU/L (15-46); BILIRUBIN,INDIRECT 0.7 mg/dl (0-1.1); BILIRUBIN,TOTAL 0.7 mg/dl (0.2-1.3); BLOOD UREA NITROGEN 3 mg/dl (7-20); CALCIUM 8.3 mg/dl (8.4-10.2); CARBON DIOXIDE 24 mmol/L (21-31); CHLORIDE 105 mmol/L (97-110); CREATININE 0.52 mg/dl (0.44-1.00); Estimated GFR > 60 mL/min (>60); GLUCOSE 83 mg/dl (70-220); POTASSIUM 3.9 mmol/L (3.5-5.1); SODIUM 133 mmol/L (135-144); TOTAL PROTEIN 5.4 g/dl (6.1-8.1)
[2019-06-04] MEDS: PANTOPRAZOLE 40 MG INJ IV ×2 (06:00→17:08)
[2019-06-04] MEDS: LACTULOSE 30ML CUP PO ×3 (06:04→20:32)
[2019-06-04] MEDS: HYOSCYAMINE 0.125 MG SUBL TAB PO ×3 (06:04→20:33)
[2019-06-04] MEDS: MAGNESIUM OXIDE 400 MG TAB PO ×2 (08:35→20:33)
[2019-06-04] MEDS: PROCHLORPERAZINE 5 MG TAB PO ×3 (08:35→20:34)
[2019-06-04] MEDS: RIFAXIMIN 550 MG TAB PO ×2 (08:35→20:34)
[2019-06-04] MEDS: NADOLOL 40 MG TAB PO ×2 (08:36→20:33)
[2019-06-04] MEDS: AZATHIOPRINE 50 MG TAB PO (08:37)
[2019-06-04] MEDS: SPIRONOLACTONE 25 MG TAB PO ×2 (08:37→20:34)
[2019-06-04] MEDS: COLCHICINE 0.6 MG CAP PO (08:37)
[2019-06-04] MEDS: SUCRALFATE (100 MG/ML) 10ML CUP PO ×4 (08:38→20:32)
[2019-06-04] MEDS: POTASSIUM CHLORIDE 20 MEQ POWDER FOR ORAL SOLN PO (08:38)
[2019-06-04] MEDS: SCOPOLAMINE 1.5 MG PATCH TRANSDERM (11:48)
[2019-06-04] MEDS: METOCLOPRAMIDE 10 MG TAB PO ×2 (13:19→20:33)
[2019-06-04 17:20] LABS: IMMEDIATE SPIN CROSSMATCH 1 1
[2019-06-04] MEDS: APIXABAN 5 MG TABLET PO (20:34)
[2019-06-05] MEDS: ONDANSETRON 4 MG INJ IV ×4 (00:49→17:29)
[2019-06-05] MEDS: HYDROmorphONE 1 MG/ML SYG IV ×6 (00:52→22:32)
[2019-06-05] MEDS: HYOSCYAMINE 0.125 MG SUBL TAB PO ×3 (05:58→21:01)
[2019-06-05] MEDS: LACTULOSE 30ML CUP PO ×3 (05:58→21:01)
[2019-06-05] MEDS: PANTOPRAZOLE 40 MG INJ IV ×2 (05:58→17:29)
[2019-06-05] MEDS: METOCLOPRAMIDE 10 MG TAB PO ×3 (05:58→21:02)
[2019-06-05 06:45] LABS: AMMONIA 20 umol/l (9-30)
[2019-06-05 06:58] LABS: ANION GAP 6 (5-13); BLOOD UREA NITROGEN 4 mg/dl (7-20); CALCIUM 8.7 mg/dl (8.4-10.2); CARBON DIOXIDE 25 mmol/L (21-31); CHLORIDE 102 mmol/L (97-110); CREATININE 0.57 mg/dl (0.44-1.00); Estimated GFR > 60 mL/min (>60); GLUCOSE 75 mg/dl (70-220); MAGNESIUM 1.6 mg/dl (1.7-2.5); PHOSPHORUS 4.5 mg/dl (2.5-4.9); POTASSIUM 4.2 mmol/L (3.5-5.1); SODIUM 133 mmol/L (135-144)
[2019-06-05] MEDS: NADOLOL 40 MG TAB PO ×2 (09:00→20:58)
[2019-06-05] MEDS: SPIRONOLACTONE 25 MG TAB PO ×2 (09:02→20:57)
[2019-06-05] MEDS: MAGNESIUM OXIDE 400 MG TAB PO ×2 (09:02→20:57)
[2019-06-05] MEDS: RIFAXIMIN 550 MG TAB PO ×2 (09:02→20:58)
[2019-06-05] MEDS: PROCHLORPERAZINE 5 MG TAB PO ×3 (09:02→20:57)
[2019-06-05] MEDS: COLCHICINE 0.6 MG CAP PO (09:03)
[2019-06-05] MEDS: APIXABAN 5 MG TABLET PO ×2 (09:03→20:57)
[2019-06-05] MEDS: SUCRALFATE (100 MG/ML) 10ML CUP PO ×4 (09:03→20:57)
[2019-06-05] MEDS: POTASSIUM CHLORIDE 20 MEQ POWDER FOR ORAL SOLN PO (09:04)
[2019-06-05] MEDS: AZATHIOPRINE 50 MG TAB PO (09:26)
[2019-06-05 10:46] LABS: ADD MAN DIFF? NO
[2019-06-05 10:49] LABS: WHITE BLOOD COUNT 6.4 10^3/ul (4.8-10.8)
[2019-06-05 10:49] LABS: ABNORMAL IP MESSAGE 1; BASOPHIL # 0.1 10^3/ul (0.0-0.1); BASOPHILS % 0.9 % (0.0-2.0); EOSINOPHILS # 0.3 10^3/ul (0.0-0.5); EOSINOPHILS % 4.1 % (0.0-7.0); HEMATOCRIT 28.7 % (37.0-47.0); HEMOGLOBIN 8.9 g/dl (12.0-16.0); LYMPHOCYTES # 0.6 10^3/ul (0.8-2.9); LYMPHOCYTES % 9.2 % (15.0-51.0); MEAN CORPUSCULAR HEMOGLOBIN 25.6 pg (29.0-33.0); MEAN CORPUSCULAR VOLUME 82.7 fl (82.0-101.0); MEAN PLATELET VOLUME 10.3 fl (7.4-10.4); MONOCYTE # 1.2 10^3/ul (0.3-0.9); NEUTROPHIL # 4.2 10^3/ul (1.6-7.5); NEUTROPHILS % 66.2 % (39.0-77.0); NUCLEATED RED BLOOD CELLS # 0.2 10^3/ul (0.0-0.0); NUCLEATED RED BLOOD CELLS% 3.6 /100WBC (0.0-0.0); PLATELET COUNT 265 10^3/UL (140-415); RED BLOOD COUNT 3.47 10^6/ul (4.20-5.40); RED CELL DISTRIBUTION WIDTH 25.9 % (11.5-14.5)
[2019-06-05 10:50] LABS: POSITIVE DIFF @See below
[2019-06-06] MEDS: ONDANSETRON 4 MG INJ IV ×4 (00:20→21:20)
[2019-06-06] MEDS: HYDROmorphONE 1 MG/ML SYG IV ×5 (03:59→21:25)
[2019-06-06] MEDS: HYOSCYAMINE 0.125 MG SUBL TAB PO (05:30)
[2019-06-06] MEDS: PANTOPRAZOLE 40 MG INJ IV ×2 (05:30→17:34)
[2019-06-06] MEDS: LACTULOSE 30ML CUP PO ×3 (05:30→21:18)
[2019-06-06] MEDS: METOCLOPRAMIDE 10 MG TAB PO ×3 (05:31→22:07)
[2019-06-06] MEDS: AZATHIOPRINE 50 MG TAB PO (08:40)
[2019-06-06] MEDS: MAGNESIUM OXIDE 400 MG TAB PO (08:41)
[2019-06-06] MEDS: COLCHICINE 0.6 MG CAP PO (08:41)
[2019-06-06] MEDS: APIXABAN 5 MG TABLET PO ×2 (08:42→20:24)
[2019-06-06] MEDS: RIFAXIMIN 550 MG TAB PO ×2 (08:42→20:23)
[2019-06-06] MEDS: SUCRALFATE (100 MG/ML) 10ML CUP PO ×4 (08:42→20:22)
[2019-06-06] MEDS: PROCHLORPERAZINE 5 MG TAB PO ×3 (08:42→20:23)
[2019-06-06] MEDS: SPIRONOLACTONE 25 MG TAB PO ×2 (08:42→20:23)
[2019-06-06] MEDS: NADOLOL 40 MG TAB PO ×2 (08:43→21:19)
[2019-06-06] MEDS: POTASSIUM CHLORIDE 20 MEQ POWDER FOR ORAL SOLN PO (08:43)
[2019-06-07] MEDS: HYDROmorphONE 1 MG/ML SYG IV ×5 (02:14→21:53)
[2019-06-07] MEDS: ONDANSETRON 4 MG INJ IV ×6 (02:14→21:47)
[2019-06-07] MEDS: PANTOPRAZOLE 40 MG INJ IV ×2 (05:33→17:12)
[2019-06-07 06:25] LABS: ANION GAP 4 (5-13); BLOOD UREA NITROGEN 5 mg/dl (7-20); CALCIUM 8.5 mg/dl (8.4-10.2); CARBON DIOXIDE 27 mmol/L (21-31); CHLORIDE 103 mmol/L (97-110); CREATININE 0.55 mg/dl (0.44-1.00); Estimated GFR > 60 mL/min (>60); GLUCOSE 80 mg/dl (70-220); MAGNESIUM 1.6 mg/dl (1.7-2.5); PHOSPHORUS 4.5 mg/dl (2.5-4.9); SODIUM 134 mmol/L (135-144); TRIGLYCERIDES 57 mg/dl (0-149)
[2019-06-07] MEDS: METOCLOPRAMIDE 10 MG TAB PO ×3 (06:36→21:48)
[2019-06-07 07:32] LABS: PREALBUMIN 3.1 mg/dl (17.6-36.0)
[2019-06-07] MEDS: AZATHIOPRINE 50 MG TAB PO (08:10)
[2019-06-07] MEDS: LACTULOSE 30ML CUP PO ×2 (08:10→21:48)
[2019-06-07] MEDS: SUCRALFATE (100 MG/ML) 10ML CUP PO ×4 (08:11→21:48)
[2019-06-07] MEDS: PROCHLORPERAZINE 5 MG TAB PO ×2 (08:11→08:24)
[2019-06-07] MEDS: SPIRONOLACTONE 25 MG TAB PO ×2 (08:11→21:47)
[2019-06-07] MEDS: RIFAXIMIN 550 MG TAB PO ×2 (08:11→21:48)
[2019-06-07] MEDS: COLCHICINE 0.6 MG CAP PO (08:11)
[2019-06-07] MEDS: APIXABAN 5 MG TABLET PO ×2 (08:15→21:48)
[2019-06-07] MEDS: NADOLOL 40 MG TAB PO ×2 (08:15→21:52)
[2019-06-07] MEDS: DEXTROSE 5%-0.45% NACL 1,000 ML IV ×2 (14:40→23:57)
[2019-06-07] MEDS: SCOPOLAMINE 1.5 MG PATCH TRANSDERM (14:40)
[2019-06-07] MEDS: traMADol 50 MG TAB PO ×2 (14:41→21:00)
[2019-06-07] MEDS: MAGNESIUM SULFATE 3 GM in DEXTROSE 5% 100 ML IVPB (15:29)
[2019-06-07] MEDS: ACETAMINOPHEN 1000MG/100ML IV 100 ML IVPB (18:02)
[2019-06-08] MEDS: ACETAMINOPHEN 1000MG/100ML IV 100 ML IVPB ×2 (00:38→08:39)
[2019-06-08] MEDS: ONDANSETRON 4 MG INJ IV ×6 (01:39→20:57)
[2019-06-08] MEDS: DEXTROSE 5%-0.45% NACL 1,000 ML IV (04:21)
[2019-06-08] MEDS: HYDROmorphONE 1 MG/ML SYG IV ×5 (04:21→22:08)
[2019-06-08] MEDS: METOCLOPRAMIDE 10 MG TAB PO ×3 (06:07→22:11)
[2019-06-08] MEDS: PANTOPRAZOLE 40 MG INJ IV ×2 (06:07→17:15)
[2019-06-08 07:16] LABS: ADD MAN DIFF? NO
[2019-06-08 07:23] LABS: WHITE BLOOD COUNT 4.6 10^3/ul (4.8-10.8)
[2019-06-08 07:23] LABS: ABNORMAL IP MESSAGE 1; BASOPHILS % 0.9 % (0.0-2.0); EOSINOPHILS # 0.3 10^3/ul (0.0-0.5); EOSINOPHILS % 5.9 % (0.0-7.0); HEMATOCRIT 28.2 % (37.0-47.0); HEMOGLOBIN 8.7 g/dl (12.0-16.0); LYMPHOCYTES # 0.6 10^3/ul (0.8-2.9); LYMPHOCYTES % 13.1 % (15.0-51.0); MEAN CORPUSCULAR HEMOGLOBIN 25.6 pg (29.0-33.0); MEAN CORPUSCULAR HGB CONC 30.9 g/dl (32.0-37.0); MEAN CORPUSCULAR VOLUME 82.9 fl (82.0-101.0); MEAN PLATELET VOLUME 10.7 fl (7.4-10.4); MONOCYTE # 0.7 10^3/ul (0.3-0.9); MONOCYTES % 15.8 % (0.0-11.0); NEUTROPHIL # 2.9 10^3/ul (1.6-7.5); NEUTROPHILS % 63.9 % (39.0-77.0); NUCLEATED RED BLOOD CELLS # 0.3 10^3/ul (0.0-0.0); NUCLEATED RED BLOOD CELLS% 6.3 /100WBC (0.0-0.0); PLATELET COUNT 265 10^3/UL (140-415); RED CELL DISTRIBUTION WIDTH 28.2 % (11.5-14.5)
[2019-06-08 07:36] LABS: POSITIVE DIFF @See below
[2019-06-08] MEDS: SPIRONOLACTONE 25 MG TAB PO ×2 (08:34→20:58)
[2019-06-08] MEDS: COLCHICINE 0.6 MG CAP PO (08:34)
[2019-06-08] MEDS: LACTULOSE 30ML CUP PO ×2 (08:34→20:58)
[2019-06-08] MEDS: NADOLOL 40 MG TAB PO ×2 (08:36→20:58)
[2019-06-08] MEDS: APIXABAN 5 MG TABLET PO ×2 (08:37→20:57)
[2019-06-08] MEDS: AZATHIOPRINE 50 MG TAB PO (08:37)
[2019-06-08] MEDS: SUCRALFATE (100 MG/ML) 10ML CUP PO ×4 (08:38→20:58)
[2019-06-08] MEDS: RIFAXIMIN 550 MG TAB PO ×2 (08:38→20:58)
[2019-06-08] MEDS: traMADol 50 MG TAB PO ×3 (08:39→21:00)
[2019-06-08] MEDS ORDERED: FAT EMULSION 20% 250 ML IV ×2 (13:00)
[2019-06-08] MEDS: TPN 1,000 ML IV (13:14)
[2019-06-08] MEDS: FAT EMULSION 20% 250 ML IV (13:16)
[2019-06-08] MEDS: ACCU-CHEK XX ×3 (13:34→20:59)
[2019-06-09] MEDS: ACCU-CHEK XX ×6 (01:00→20:45)
[2019-06-09] MEDS: ONDANSETRON 4 MG INJ IV ×6 (01:00→20:43)
[2019-06-09] MEDS: HYDROmorphONE 1 MG/ML SYG IV ×6 (02:55→23:07)
[2019-06-09] MEDS: HYOSCYAMINE 0.125 MG SUBL TAB PO (02:59)
[2019-06-09] MEDS: TPN 1,000 ML IV ×2 (05:41→22:53)
[2019-06-09] MEDS: PANTOPRAZOLE 40 MG INJ IV ×2 (05:44→17:07)
[2019-06-09] MEDS: METOCLOPRAMIDE 10 MG TAB PO ×3 (05:48→22:53)
[2019-06-09 06:51] LABS: ANION GAP 6 (5-13); BLOOD UREA NITROGEN 3 mg/dl (7-20); CALCIUM 8.2 mg/dl (8.4-10.2); CARBON DIOXIDE 24 mmol/L (21-31); CHLORIDE 104 mmol/L (97-110); CREATININE 0.45 mg/dl (0.44-1.00); Estimated GFR > 60 mL/min (>60); GLUCOSE 85 mg/dl (70-220); MAGNESIUM 1.6 mg/dl (1.7-2.5); PHOSPHORUS 4.2 mg/dl (2.5-4.9); POTASSIUM 4.1 mmol/L (3.5-5.1); SODIUM 134 mmol/L (135-144)
[2019-06-09] MEDS: SUCRALFATE (100 MG/ML) 10ML CUP PO ×4 (08:50→20:42)
[2019-06-09] MEDS: LACTULOSE 30ML CUP PO ×2 (08:50→20:42)
[2019-06-09] MEDS: COLCHICINE 0.6 MG CAP PO (08:51)
[2019-06-09] MEDS: AZATHIOPRINE 50 MG TAB PO (08:51)
[2019-06-09] MEDS: SPIRONOLACTONE 25 MG TAB PO ×2 (08:51→20:43)
[2019-06-09] MEDS: RIFAXIMIN 550 MG TAB PO ×2 (08:51→20:43)
[2019-06-09] MEDS: APIXABAN 5 MG TABLET PO ×2 (08:51→20:43)
[2019-06-09] MEDS: NADOLOL 40 MG TAB PO ×2 (08:51→20:43)
[2019-06-09] MEDS: traMADol 50 MG TAB PO ×4 (08:52→20:36)
[2019-06-09] MEDS: MAGNESIUM SULFATE 2 GM/50 ML 50 ML IVPB (09:44)
[2019-06-09] MEDS ORDERED: MAGNESIUM SULFATE 1 GM/D5W 100 ML IVPB (10:00)
[2019-06-09] MEDS: FAT EMULSION 20% 250 ML IV (13:03)
[2019-06-10] MEDS: ACCU-CHEK XX ×6 (01:00→20:38)
[2019-06-10] MEDS: ONDANSETRON 4 MG INJ IV ×6 (02:01→20:31)
[2019-06-10] MEDS: HYDROmorphONE 1 MG/ML SYG IV ×6 (03:08→23:10)
[2019-06-10] MEDS: PANTOPRAZOLE 40 MG INJ IV ×2 (06:22→17:17)
[2019-06-10] MEDS: METOCLOPRAMIDE 10 MG TAB PO ×3 (06:23→21:26)
[2019-06-10 07:51] LABS: PROTIME 20.1 Sec (11.9-14.9); PT RATIO 1.6
[2019-06-10 07:54] LABS: ANION GAP 0 (5-13); BLOOD UREA NITROGEN 4 mg/dl (7-20); CALCIUM 8.2 mg/dl (8.4-10.2); CARBON DIOXIDE 26 mmol/L (21-31); CHLORIDE 107 mmol/L (97-110); CREATININE 0.44 mg/dl (0.44-1.00); Estimated GFR > 60 mL/min (>60); GLUCOSE 80 mg/dl (70-220); MAGNESIUM 1.7 mg/dl (1.7-2.5); PHOSPHORUS 3.6 mg/dl (2.5-4.9); POTASSIUM 3.7 mmol/L (3.5-5.1); SODIUM 133 mmol/L (135-144)
[2019-06-10 08:36] LABS: ALANINE AMINOTRANSFERASE 23 IU/L (13-69); ALBUMIN 2.1 g/dl (3.3-4.9); ALKALINE PHOSPHATASE 93 IU/L (42-121); ASPARTATE AMINO TRANSFERASE 27 IU/L (15-46); BILIRUBIN,INDIRECT 0.4 mg/dl (0-1.1); BILIRUBIN,TOTAL 0.4 mg/dl (0.2-1.3); TOTAL PROTEIN 5.4 g/dl (6.1-8.1)
[2019-06-10] MEDS: traMADol 50 MG TAB PO ×3 (09:00→20:32)
[2019-06-10] MEDS: LACTULOSE 30ML CUP PO ×2 (09:08→20:32)
[2019-06-10] MEDS: RIFAXIMIN 550 MG TAB PO ×2 (09:08→20:32)
[2019-06-10] MEDS: NADOLOL 40 MG TAB PO ×2 (09:09→20:32)
[2019-06-10] MEDS: APIXABAN 5 MG TABLET PO ×2 (09:10→20:31)
[2019-06-10] MEDS: SUCRALFATE (100 MG/ML) 10ML CUP PO ×4 (09:10→20:31)
[2019-06-10] MEDS: COLCHICINE 0.6 MG CAP PO (09:10)
[2019-06-10] MEDS: AZATHIOPRINE 50 MG TAB PO (09:10)
[2019-06-10] MEDS: SPIRONOLACTONE 25 MG TAB PO ×2 (09:13→20:31)
[2019-06-10] MEDS: FAT EMULSION 20% 250 ML IV (13:14)
[2019-06-10] MEDS: TPN 1,000 ML IV ×2 (15:00→16:14)
[2019-06-11] MEDS: ACCU-CHEK XX ×6 (01:00→20:06)
[2019-06-11] MEDS: INSULIN ASPART [NOVOLOG] 3 ML PEN SC ×6 (01:00→20:14)
[2019-06-11] MEDS: ONDANSETRON 4 MG INJ IV ×6 (01:15→20:05)
[2019-06-11] MEDS: HYDROmorphONE 1 MG/ML SYG IV ×5 (03:26→20:05)
[2019-06-11] MEDS: PANTOPRAZOLE 40 MG INJ IV ×2 (05:30→17:06)
[2019-06-11] MEDS: METOCLOPRAMIDE 10 MG TAB PO ×3 (05:30→22:06)
[2019-06-11 06:07] LABS: INR 1.39; PROTIME 17.2 Sec (11.9-14.9); PT RATIO 1.3
[2019-06-11 06:23] LABS: ALANINE AMINOTRANSFERASE 19 IU/L (13-69); ALBUMIN 2.3 g/dl (3.3-4.9); ALBUMIN/GLOBULIN RATIO 0.69; ALKALINE PHOSPHATASE 95 IU/L (42-121); ANION GAP 3 (5-13); ASPARTATE AMINO TRANSFERASE 36 IU/L (15-46); BILIRUBIN,INDIRECT 0.3 mg/dl (0-1.1); BILIRUBIN,TOTAL 0.3 mg/dl (0.2-1.3); BLOOD UREA NITROGEN 6 mg/dl (7-20); CALCIUM 8.1 mg/dl (8.4-10.2); CARBON DIOXIDE 25 mmol/L (21-31); CHLORIDE 106 mmol/L (97-110); Estimated GFR > 60 mL/min (>60); GLUCOSE 94 mg/dl (70-220); SODIUM 134 mmol/L (135-144); TOTAL PROTEIN 5.6 g/dl (6.1-8.1)
[2019-06-11 06:25] LABS: POTASSIUM 3.7 mmol/L (3.5-5.1)
[2019-06-11] MEDS: APIXABAN 5 MG TABLET PO ×2 (08:18→20:05)
[2019-06-11] MEDS: RIFAXIMIN 550 MG TAB PO ×2 (08:18→20:05)
[2019-06-11] MEDS: AZATHIOPRINE 50 MG TAB PO (08:18)
[2019-06-11] MEDS: SPIRONOLACTONE 25 MG TAB PO ×2 (08:18→20:05)
[2019-06-11] MEDS: COLCHICINE 0.6 MG CAP PO (08:18)
[2019-06-11] MEDS: SUCRALFATE (100 MG/ML) 10ML CUP PO ×4 (08:18→20:05)
[2019-06-11] MEDS: TPN 1,000 ML IV (08:18)
[2019-06-11] MEDS: LACTULOSE 30ML CUP PO ×2 (08:19→20:05)
[2019-06-11] MEDS: NADOLOL 40 MG TAB PO ×2 (08:19→20:05)
[2019-06-11] MEDS: traMADol 50 MG TAB PO ×3 (08:20→20:06)
[2019-06-11] MEDS: FAT EMULSION 20% 250 ML IV (12:59)
[2019-06-12] MEDS: HYDROmorphONE 1 MG/ML SYG IV ×6 (00:11→21:00)
[2019-06-12] MEDS: ONDANSETRON 4 MG INJ IV ×6 (00:15→20:59)
[2019-06-12] MEDS: TPN 1,000 ML IV ×2 (00:16→17:05)
[2019-06-12] MEDS: INSULIN ASPART [NOVOLOG] 3 ML PEN SC ×6 (00:45→21:00)
[2019-06-12] MEDS: ACCU-CHEK XX ×6 (00:46→21:16)
[2019-06-12 06:03] LABS: INR 1.38; PROTIME 17.1 Sec (11.9-14.9); PT RATIO 1.3
[2019-06-12 06:09] LABS: ALANINE AMINOTRANSFERASE 32 IU/L (13-69); ALBUMIN 2.2 g/dl (3.3-4.9); ALBUMIN/GLOBULIN RATIO 0.62; ALKALINE PHOSPHATASE 101 IU/L (42-121); ANION GAP 2 (5-13); ASPARTATE AMINO TRANSFERASE 60 IU/L (15-46); BILIRUBIN,INDIRECT 0.4 mg/dl (0-1.1); BILIRUBIN,TOTAL 0.4 mg/dl (0.2-1.3); BLOOD UREA NITROGEN 4 mg/dl (7-20); CALCIUM 8.3 mg/dl (8.4-10.2); CARBON DIOXIDE 25 mmol/L (21-31); CHLORIDE 107 mmol/L (97-110); CREATININE 0.37 mg/dl (0.44-1.00); Estimated GFR > 60 mL/min (>60); GLUCOSE 93 mg/dl (70-220); POTASSIUM 3.8 mmol/L (3.5-5.1); SODIUM 134 mmol/L (135-144); TOTAL PROTEIN 5.7 g/dl (6.1-8.1)
[2019-06-12] MEDS: METOCLOPRAMIDE 10 MG TAB PO ×3 (06:09→22:20)
[2019-06-12] MEDS: PANTOPRAZOLE 40 MG INJ IV ×2 (06:09→17:44)
[2019-06-12] MEDS: APIXABAN 5 MG TABLET PO ×2 (08:54→20:58)
[2019-06-12] MEDS: SUCRALFATE (100 MG/ML) 10ML CUP PO ×4 (08:54→20:56)
[2019-06-12] MEDS: LACTULOSE 30ML CUP PO ×2 (08:54→21:03)
[2019-06-12] MEDS: AZATHIOPRINE 50 MG TAB PO (08:55)
[2019-06-12] MEDS: COLCHICINE 0.6 MG CAP PO (08:55)
[2019-06-12] MEDS: RIFAXIMIN 550 MG TAB PO ×2 (08:55→20:56)
[2019-06-12] MEDS: NADOLOL 40 MG TAB PO ×2 (08:55→20:59)
[2019-06-12] MEDS: SPIRONOLACTONE 25 MG TAB PO ×2 (08:55→20:57)
[2019-06-12] MEDS: traMADol 50 MG TAB PO ×3 (08:56→20:57)
[2019-06-12] MEDS: FAT EMULSION 20% 250 ML IV (13:08)
[2019-06-12] MEDS: LACTOBACILLUS RHAMNOSUS CAP PO (20:57)
[2019-06-13] MEDS: ONDANSETRON 4 MG INJ IV ×6 (00:59→21:02)
[2019-06-13] MEDS: HYDROmorphONE 1 MG/ML SYG IV ×6 (00:59→21:06)
[2019-06-13] MEDS: INSULIN ASPART [NOVOLOG] 3 ML PEN SC ×6 (01:00→21:00)
[2019-06-13] MEDS: ACCU-CHEK XX ×6 (01:05→21:11)
[2019-06-13] MEDS ORDERED: PANTOPRAZOLE (EC) 40 MG TAB PO (04:34)
[2019-06-13] MEDS: METOCLOPRAMIDE 10 MG TAB PO ×3 (06:10→21:03)
[2019-06-13] MEDS: PANTOPRAZOLE (EC) 40 MG TAB PO ×2 (06:10→17:19)
[2019-06-13 06:42] LABS: INR 1.37; PT RATIO 1.3
[2019-06-13 06:49] LABS: ANION GAP 3 (5-13); BLOOD UREA NITROGEN 4 mg/dl (7-20); CALCIUM 8.5 mg/dl (8.4-10.2); CARBON DIOXIDE 26 mmol/L (21-31); CHLORIDE 106 mmol/L (97-110); CREATININE 0.37 mg/dl (0.44-1.00); Estimated GFR > 60 mL/min (>60); GLUCOSE 89 mg/dl (70-220); MAGNESIUM 1.8 mg/dl (1.7-2.5); PHOSPHORUS 3.6 mg/dl (2.5-4.9); POTASSIUM 3.9 mmol/L (3.5-5.1); SODIUM 135 mmol/L (135-144)
[2019-06-13 07:04] LABS: ALANINE AMINOTRANSFERASE 25 IU/L (13-69); ALBUMIN 2.2 g/dl (3.3-4.9); ALBUMIN/GLOBULIN RATIO 0.64; ALKALINE PHOSPHATASE 125 IU/L (42-121); ANION GAP 5 (5-13); ASPARTATE AMINO TRANSFERASE 79 IU/L (15-46); BILIRUBIN,INDIRECT 0.4 mg/dl (0-1.1); BILIRUBIN,TOTAL 0.4 mg/dl (0.2-1.3); BLOOD UREA NITROGEN 4 mg/dl (7-20); CALCIUM 8.6 mg/dl (8.4-10.2); CARBON DIOXIDE 24 mmol/L (21-31); CHLORIDE 106 mmol/L (97-110); CREATININE 0.37 mg/dl (0.44-1.00); Estimated GFR > 60 mL/min (>60); GLUCOSE 83 mg/dl (70-220); POTASSIUM 4.3 mmol/L (3.5-5.1); SODIUM 135 mmol/L (135-144); TOTAL PROTEIN 5.6 g/dl (6.1-8.1)
[2019-06-13] MEDS: traMADol 50 MG TAB PO ×3 (09:00→21:00)
[2019-06-13] MEDS: SPIRONOLACTONE 25 MG TAB PO ×2 (09:13→21:03)
[2019-06-13] MEDS: COLCHICINE 0.6 MG CAP PO (09:13)
[2019-06-13] MEDS: LACTULOSE 30ML CUP PO (09:13)
[2019-06-13] MEDS: LACTOBACILLUS RHAMNOSUS CAP PO ×2 (09:13→21:03)
[2019-06-13] MEDS: RIFAXIMIN 550 MG TAB PO ×2 (09:13→21:02)
[2019-06-13] MEDS: AZATHIOPRINE 50 MG TAB PO (09:15)
[2019-06-13] MEDS: SUCRALFATE (100 MG/ML) 10ML CUP PO ×4 (09:15→21:02)
[2019-06-13] MEDS: APIXABAN 5 MG TABLET PO ×2 (09:15→21:02)
[2019-06-13] MEDS: NADOLOL 40 MG TAB PO ×2 (09:15→21:04)
[2019-06-13] MEDS: TPN 1,000 ML IV (12:54)
[2019-06-13] MEDS: FAT EMULSION 20% 250 ML IV (12:55)
[2019-06-14] MEDS: INSULIN ASPART [NOVOLOG] 3 ML PEN SC ×6 (01:00→21:00)
[2019-06-14] MEDS: HYDROmorphONE 1 MG/ML SYG IV ×6 (01:03→21:21)
[2019-06-14] MEDS: ONDANSETRON 4 MG INJ IV ×6 (01:03→21:33)
[2019-06-14] MEDS: ACCU-CHEK XX ×6 (01:08→21:00)
[2019-06-14] MEDS: TPN 1,000 ML IV ×3 (05:18→22:48)
[2019-06-14] MEDS: PANTOPRAZOLE (EC) 40 MG TAB PO ×2 (05:36→17:14)
[2019-06-14] MEDS: METOCLOPRAMIDE 10 MG TAB PO ×3 (05:36→22:00)
[2019-06-14 06:01] LABS: ADD MAN DIFF? NO
[2019-06-14 06:03] LABS: WHITE BLOOD COUNT 3.6 10^3/ul (4.8-10.8)
[2019-06-14 06:03] LABS: ABNORMAL IP MESSAGE 1; BASOPHIL # 0.1 10^3/ul (0.0-0.1); BASOPHILS % 1.4 % (0.0-2.0); EOSINOPHILS # 0.3 10^3/ul (0.0-0.5); HEMOGLOBIN 7.7 g/dl (12.0-16.0); LYMPHOCYTES # 0.7 10^3/ul (0.8-2.9); LYMPHOCYTES % 20.7 % (15.0-51.0); MEAN CORPUSCULAR HEMOGLOBIN 26.3 pg (29.0-33.0); MEAN CORPUSCULAR HGB CONC 30.8 g/dl (32.0-37.0); MEAN CORPUSCULAR VOLUME 85.3 fl (82.0-101.0); MEAN PLATELET VOLUME 10.2 fl (7.4-10.4); MONOCYTE # 0.8 10^3/ul (0.3-0.9); MONOCYTES % 22.1 % (0.0-11.0); NEUTROPHIL # 1.7 10^3/ul (1.6-7.5); NEUTROPHILS % 46.5 % (39.0-77.0); NUCLEATED RED BLOOD CELLS # 0.2 10^3/ul (0.0-0.0); NUCLEATED RED BLOOD CELLS% 6.2 /100WBC (0.0-0.0); PLATELET COUNT 438 10^3/UL (140-415); RED BLOOD COUNT 2.93 10^6/ul (4.20-5.40); RED CELL DISTRIBUTION WIDTH 29.6 % (11.5-14.5)
[2019-06-14 06:21] LABS: POSITIVE DIFF @See below
[2019-06-14 06:32] LABS: ALANINE AMINOTRANSFERASE 28 IU/L (13-69); ALBUMIN 2.4 g/dl (3.3-4.9); ALBUMIN/GLOBULIN RATIO 0.72; ALKALINE PHOSPHATASE 93 IU/L (42-121); ANION GAP 3 (5-13); ASPARTATE AMINO TRANSFERASE 52 IU/L (15-46); BILIRUBIN,INDIRECT 0.4 mg/dl (0-1.1); BILIRUBIN,TOTAL 0.4 mg/dl (0.2-1.3); BLOOD UREA NITROGEN 4 mg/dl (7-20); CALCIUM 8.8 mg/dl (8.4-10.2); CARBON DIOXIDE 26 mmol/L (21-31); CHLORIDE 106 mmol/L (97-110); CREATININE 0.41 mg/dl (0.44-1.00); Estimated GFR > 60 mL/min (>60); GLUCOSE 83 mg/dl (70-220); SODIUM 135 mmol/L (135-144); TOTAL PROTEIN 5.7 g/dl (6.1-8.1)
[2019-06-14 08:28] LABS: AMMONIA 20 umol/l (9-30)
[2019-06-14] MEDS: LACTULOSE 30ML CUP PO (08:31)
[2019-06-14] MEDS: SUCRALFATE (100 MG/ML) 10ML CUP PO ×4 (08:31→21:31)
[2019-06-14] MEDS: LACTOBACILLUS RHAMNOSUS CAP PO ×2 (08:32→21:33)
[2019-06-14] MEDS: APIXABAN 5 MG TABLET PO (08:36)
[2019-06-14] MEDS: COLCHICINE 0.6 MG CAP PO (08:36)
[2019-06-14] MEDS: NADOLOL 40 MG TAB PO ×2 (08:36→21:33)
[2019-06-14] MEDS: SPIRONOLACTONE 25 MG TAB PO ×2 (08:37→21:31)
[2019-06-14] MEDS: RIFAXIMIN 550 MG TAB PO ×2 (08:37→21:33)
[2019-06-14] MEDS: AZATHIOPRINE 50 MG TAB PO (08:38)
[2019-06-14] MEDS: traMADol 50 MG TAB PO ×3 (08:38→21:00)
[2019-06-14 12:36] LABS: HEMATOCRIT 28.3 % (37.0-47.0); HEMOGLOBIN 8.6 g/dl (12.0-16.0)
[2019-06-14] MEDS: FAT EMULSION 20% 250 ML IV (15:52)
[2019-06-15] MEDS: ACCU-CHEK XX ×6 (01:00→20:59)
[2019-06-15] MEDS: INSULIN ASPART [NOVOLOG] 3 ML PEN SC ×7 (01:00→20:59)
[2019-06-15] MEDS: ONDANSETRON 4 MG INJ IV ×6 (01:05→20:57)
[2019-06-15] MEDS: HYDROmorphONE 1 MG/ML SYG IV ×6 (01:42→22:39)
[2019-06-15] MEDS: PANTOPRAZOLE (EC) 40 MG TAB PO ×2 (05:45→16:52)
[2019-06-15] MEDS: METOCLOPRAMIDE 10 MG TAB PO ×3 (05:46→21:33)
[2019-06-15 06:34] LABS: ADD MAN DIFF? NO
[2019-06-15 06:36] LABS: WHITE BLOOD COUNT 3.2 10^3/ul (4.8-10.8)
[2019-06-15 06:36] LABS: ABNORMAL IP MESSAGE 1; BASOPHILS % 0.9 % (0.0-2.0); EOSINOPHILS # 0.2 10^3/ul (0.0-0.5); EOSINOPHILS % 7.3 % (0.0-7.0); HEMOGLOBIN 7.9 g/dl (12.0-16.0); LYMPHOCYTES # 0.5 10^3/ul (0.8-2.9); LYMPHOCYTES % 15.8 % (15.0-51.0); MEAN CORPUSCULAR HEMOGLOBIN 26.1 pg (29.0-33.0); MEAN CORPUSCULAR HGB CONC 30.4 g/dl (32.0-37.0); MEAN CORPUSCULAR VOLUME 85.8 fl (82.0-101.0); MEAN PLATELET VOLUME 9.8 fl (7.4-10.4); MONOCYTE # 0.7 10^3/ul (0.3-0.9); MONOCYTES % 20.6 % (0.0-11.0); NEUTROPHIL # 1.7 10^3/ul (1.6-7.5); NEUTROPHILS % 55.1 % (39.0-77.0); NUCLEATED RED BLOOD CELLS # 0.2 10^3/ul (0.0-0.0); NUCLEATED RED BLOOD CELLS% 7.3 /100WBC (0.0-0.0); PLATELET COUNT 429 10^3/UL (140-415); RED BLOOD COUNT 3.03 10^6/ul (4.20-5.40); RED CELL DISTRIBUTION WIDTH 30.2 % (11.5-14.5)
[2019-06-15 06:37] LABS: POSITIVE DIFF @See below
[2019-06-15 07:05] LABS: PREALBUMIN 7.3 mg/dl (17.6-36.0)
[2019-06-15 07:30] LABS: ADD UMIC YES; UR ASCORBIC ACID NEGATIVE (NEGATIVE); UR BACTERIA FEW /HPF (NONE SEEN); UR BILIRUBIN (Dip) NEGATIVE (NEGATIVE); UR BLOOD (Dip) 1+ mg/dL (NEGATIVE); UR CLARITY CLOUDY (CLEAR); UR COLOR YELLOW (YELLOW); UR GLUCOSE (Dip) NEGATIVE (NEGATIVE); UR KETONES (Dip) NEGATIVE (NEGATIVE); UR LEUKOCYTE ESTERASE (Dip) 3+ Leu/ul (NEGATIVE); UR NITRITE (Dip) NEGATIVE (NEGATIVE); UR RBC 43 /HPF (0-5); UR SPECIFIC GRAVITY (Dip) 1.003 (1.003-1.030); UR TOTAL PROTEIN (Dip) NEGATIVE (NEGATIVE); UR UROBILINOGEN (Dip) NEGATIVE (NEGATIVE); UR WBC > 182 /HPF (0-5)
[2019-06-15 07:47] LABS: ANION GAP 4 (5-13); BLOOD UREA NITROGEN 4 mg/dl (7-20); CALCIUM 8.8 mg/dl (8.4-10.2); CARBON DIOXIDE 25 mmol/L (21-31); CHLORIDE 105 mmol/L (97-110); CREATININE 0.42 mg/dl (0.44-1.00); Estimated GFR > 60 mL/min (>60); GLUCOSE 92 mg/dl (70-220); MAGNESIUM 1.7 mg/dl (1.7-2.5); PHOSPHORUS 4.1 mg/dl (2.5-4.9); POTASSIUM 3.8 mmol/L (3.5-5.1); SODIUM 134 mmol/L (135-144); TRIGLYCERIDES 47 mg/dl (0-149)
[2019-06-15] MEDS: traMADol 50 MG TAB PO ×3 (09:00→20:59)
[2019-06-15] MEDS: SUCRALFATE (100 MG/ML) 10ML CUP PO ×4 (09:05→20:57)
[2019-06-15] MEDS: LACTULOSE 30ML CUP PO (09:05)
[2019-06-15] MEDS: LACTOBACILLUS RHAMNOSUS CAP PO ×2 (09:06→20:58)
[2019-06-15] MEDS: COLCHICINE 0.6 MG CAP PO (09:06)
[2019-06-15] MEDS: SPIRONOLACTONE 25 MG TAB PO ×2 (09:06→20:57)
[2019-06-15] MEDS: AZATHIOPRINE 50 MG TAB PO (09:06)
[2019-06-15] MEDS: RIFAXIMIN 550 MG TAB PO ×2 (09:08→20:57)
[2019-06-15] MEDS: NADOLOL 40 MG TAB PO ×2 (09:08→20:58)
[2019-06-15] MEDS: LEVOFLOXACIN 500MG/D5W (PMX) 100 ML IVPB (10:02)
[2019-06-15] MEDS: TPN 1,000 ML IV ×2 (11:40→16:51)
[2019-06-15] MEDS: FAT EMULSION 20% 250 ML IV (14:25)
[2019-06-15] MEDS: HYDROCODONE/APAP (10/325) TAB PO (16:52)
[2019-06-16] MEDS: ONDANSETRON 4 MG INJ IV ×6 (00:56→22:22)
[2019-06-16] MEDS: INSULIN ASPART [NOVOLOG] 3 ML PEN SC ×5 (00:57→17:58)
[2019-06-16] MEDS: ACCU-CHEK XX ×5 (01:00→17:58)
[2019-06-16] MEDS: HYDROmorphONE 1 MG/ML SYG IV ×6 (02:42→22:59)
[2019-06-16] MEDS: PANTOPRAZOLE (EC) 40 MG TAB PO ×2 (05:19→17:53)
[2019-06-16] MEDS: METOCLOPRAMIDE 10 MG TAB PO ×3 (05:19→22:22)
[2019-06-16 05:50] LABS: WHITE BLOOD COUNT 3.2 10^3/ul (4.8-10.8)
[2019-06-16 05:50] LABS: ABNORMAL IP MESSAGE 1; HEMATOCRIT 25.9 % (37.0-47.0); MEAN CORPUSCULAR HEMOGLOBIN 26.4 pg (29.0-33.0); MEAN CORPUSCULAR HGB CONC 30.9 g/dl (32.0-37.0); MEAN CORPUSCULAR VOLUME 85.5 fl (82.0-101.0); MEAN PLATELET VOLUME 9.7 fl (7.4-10.4); NUCLEATED RED BLOOD CELLS% 6.8 /100WBC (0.0-0.0); PLATELET COUNT 457 10^3/UL (140-415); RED BLOOD COUNT 3.03 10^6/ul (4.20-5.40); RED CELL DISTRIBUTION WIDTH 29.5 % (11.5-14.5)
[2019-06-16 05:52] LABS: ADD MAN DIFF? YES; POSITIVE DIFF @See below
[2019-06-16 06:34] LABS: ANION GAP 4 (5-13); BLOOD UREA NITROGEN 4 mg/dl (7-20); CALCIUM 8.4 mg/dl (8.4-10.2); CARBON DIOXIDE 27 mmol/L (21-31); CHLORIDE 104 mmol/L (97-110); CREATININE 0.44 mg/dl (0.44-1.00); Estimated GFR > 60 mL/min (>60); GLUCOSE 87 mg/dl (70-220); MAGNESIUM 1.7 mg/dl (1.7-2.5); PHOSPHORUS 4.4 mg/dl (2.5-4.9); SODIUM 135 mmol/L (135-144)
[2019-06-16 06:47] LABS: POTASSIUM 3.9 mmol/L (3.5-5.1)
[2019-06-16 07:42] LABS: ACANTHOCYTES 1+ (0-0); ANISOCYTOSIS 3+ (0-0); BAND NEUTROPHILS #M 0.3 10^3/ul (0.0-0.6); BAND NEUTROPHILS % (M) 11 % (0-4); BURR CELLS 2+ (0-0); EOSINOPHILS % (M) 9 % (0-7); ERYTHROBLAST% (NRBC) (M) 19 % (0-0); GIANT THROMBO% (M) 1 % (0-0); HYPOCHROMASIA 2+ (0-0); LYMPHOCYTES #M 0.6 10^3/ul (0.8-2.9); LYMPHOCYTES % (M) 21 % (15-51); MICROCYTOSIS 1+ (0-0); MONOCYTE #M 0.3 10^3/ul (0.3-0.9); MONOCYTES % (M) 12 % (0-11); OVALOCYTES 1+ (0-0); PLATELET ESTIMATE NORMAL; POIKILOCYTOSIS 2+ (0-0); POLYCHROMASIA 3+ (0-0); REACTIVE LYMPHOCYTES% (M) 2 % (0-0); SCHISTOCYTES 1+ (0-0); SEG NEUT #M 1.4 10^3/ul (1.6-7.5); SEGMENTED NEUTROPHILS (M) % 45 % (39-77); SMUDGE%M 16 % (0-0); TARGET CELLS 2+ (0-0)
[2019-06-16] MEDS: SUCRALFATE (100 MG/ML) 10ML CUP PO ×4 (08:45→22:24)
[2019-06-16] MEDS: LACTULOSE 30ML CUP PO (08:45)
[2019-06-16] MEDS: SPIRONOLACTONE 25 MG TAB PO ×2 (08:46→22:23)
[2019-06-16] MEDS: NADOLOL 40 MG TAB PO ×2 (08:46→22:24)
[2019-06-16] MEDS: RIFAXIMIN 550 MG TAB PO ×2 (08:46→22:23)
[2019-06-16] MEDS: AZATHIOPRINE 50 MG TAB PO (08:46)
[2019-06-16] MEDS: COLCHICINE 0.6 MG CAP PO (08:46)
[2019-06-16] MEDS: LACTOBACILLUS RHAMNOSUS CAP PO ×2 (08:46→22:24)
[2019-06-16] MEDS: traMADol 50 MG TAB PO ×3 (08:47→21:00)
[2019-06-16] MEDS: LEVOFLOXACIN 500MG/D5W (PMX) 100 ML IVPB (09:01)
[2019-06-16] MEDS: TPN 1,000 ML IV (10:52)
[2019-06-16] MEDS: FAT EMULSION 20% 250 ML IV (13:55)
[2019-06-16] MEDS ORDERED: GLUCOSE GEL 15 GRAM TUBE PO ×2 (16:00)
[2019-06-16] MEDS ORDERED: GLUCOSE GEL 15 GRAM TUBE BUCCAL (16:00)
[2019-06-16] MEDS ORDERED: GLUCAGON 1 MG INJ IM (16:00)
[2019-06-16] MEDS ORDERED: DEXTROSE 50% 50 ML SYRINGE IV ×2 (16:00)
[2019-06-16] MEDS: APIXABAN 5 MG TABLET PO (22:25)
[2019-06-17] MEDS: ONDANSETRON 4 MG INJ IV ×6 (02:00→21:12)
[2019-06-17] MEDS: HYDROmorphONE 1 MG/ML SYG IV ×5 (03:06→22:28)
[2019-06-17] MEDS: PANTOPRAZOLE (EC) 40 MG TAB PO ×2 (05:32→17:48)
[2019-06-17 05:53] LABS: ADD MAN DIFF? NO
[2019-06-17 05:54] LABS: ABNORMAL IP MESSAGE 1; BASOPHILS % 0.9 % (0.0-2.0); EOSINOPHILS # 0.2 10^3/ul (0.0-0.5); EOSINOPHILS % 4.7 % (0.0-7.0); HEMATOCRIT 23.5 % (37.0-47.0); HEMOGLOBIN 7.2 g/dl (12.0-16.0); LYMPHOCYTES # 0.5 10^3/ul (0.8-2.9); LYMPHOCYTES % 13.8 % (15.0-51.0); MEAN CORPUSCULAR HEMOGLOBIN 26.8 pg (29.0-33.0); MEAN CORPUSCULAR HGB CONC 30.6 g/dl (32.0-37.0); MEAN CORPUSCULAR VOLUME 87.4 fl (82.0-101.0); MEAN PLATELET VOLUME 9.9 fl (7.4-10.4); MONOCYTE # 0.7 10^3/ul (0.3-0.9); MONOCYTES % 19.4 % (0.0-11.0); NEUTROPHIL # 2.1 10^3/ul (1.6-7.5); NEUTROPHILS % 60.9 % (39.0-77.0); NUCLEATED RED BLOOD CELLS # 0.2 10^3/ul (0.0-0.0); NUCLEATED RED BLOOD CELLS% 5.6 /100WBC (0.0-0.0); PLATELET COUNT 364 10^3/UL (140-415); RED BLOOD COUNT 2.69 10^6/ul (4.20-5.40); RED CELL DISTRIBUTION WIDTH 29.6 % (11.5-14.5)
[2019-06-17 05:54] LABS: WHITE BLOOD COUNT 3.4 10^3/ul (4.8-10.8)
[2019-06-17 05:55] LABS: POSITIVE DIFF @See below
[2019-06-17] MEDS: ACCU-CHEK XX ×4 (06:00→17:47)
[2019-06-17] MEDS: INSULIN ASPART [NOVOLOG] 3 ML PEN SC ×4 (06:00→17:24)
[2019-06-17] MEDS: METOCLOPRAMIDE 10 MG TAB PO ×3 (06:16→22:24)
[2019-06-17 06:57] LABS: ANION GAP 4 (5-13); BLOOD UREA NITROGEN 4 mg/dl (7-20); CALCIUM 8.3 mg/dl (8.4-10.2); CARBON DIOXIDE 26 mmol/L (21-31); CHLORIDE 104 mmol/L (97-110); CREATININE 0.48 mg/dl (0.44-1.00); Estimated GFR > 60 mL/min (>60); GLUCOSE 89 mg/dl (70-220); MAGNESIUM 1.7 mg/dl (1.7-2.5); PHOSPHORUS 4.6 mg/dl (2.5-4.9); POTASSIUM 3.8 mmol/L (3.5-5.1); SODIUM 134 mmol/L (135-144)
[2019-06-17] MEDS: SUCRALFATE (100 MG/ML) 10ML CUP PO ×4 (08:51→21:12)
[2019-06-17] MEDS: LACTULOSE 30ML CUP PO (08:51)
[2019-06-17] MEDS: AZATHIOPRINE 50 MG TAB PO (08:51)
[2019-06-17] MEDS: traMADol 50 MG TAB PO (08:52)
[2019-06-17] MEDS: COLCHICINE 0.6 MG CAP PO (08:52)
[2019-06-17] MEDS: APIXABAN 5 MG TABLET PO ×2 (08:52→21:12)
[2019-06-17] MEDS: RIFAXIMIN 550 MG TAB PO ×2 (08:52→21:11)
[2019-06-17] MEDS: LACTOBACILLUS RHAMNOSUS CAP PO ×2 (08:52→21:12)
[2019-06-17] MEDS: NADOLOL 40 MG TAB PO ×2 (08:53→21:12)
[2019-06-17] MEDS: SPIRONOLACTONE 25 MG TAB PO ×2 (08:53→21:11)
[2019-06-17] MEDS: TPN 1,000 ML IV (08:53)
[2019-06-17] MEDS: LEVOFLOXACIN 500MG/D5W (PMX) 100 ML IVPB (08:55)
[2019-06-17 10:53] LABS: HEMATOCRIT 25.3 % (37.0-47.0); HEMOGLOBIN 7.8 g/dl (12.0-16.0)
[2019-06-17] MEDS: morphine (ER) 30 MG TAB PO ×2 (11:30→21:12)
[2019-06-17] MEDS: FAT EMULSION 20% 250 ML IV (12:58)
[2019-06-18] MEDS: ONDANSETRON 4 MG INJ IV ×6 (01:36→21:35)
[2019-06-18] MEDS: TPN 1,000 ML IV ×2 (01:56→23:59)
[2019-06-18] MEDS: HYDROmorphONE 1 MG/ML SYG IV ×2 (02:34→13:34)
[2019-06-18] MEDS: PANTOPRAZOLE (EC) 40 MG TAB PO ×2 (05:27→17:54)
[2019-06-18] MEDS: INSULIN ASPART [NOVOLOG] 3 ML PEN SC ×4 (06:00→17:08)
[2019-06-18] MEDS: ACCU-CHEK XX ×4 (06:00→21:00)
[2019-06-18] MEDS: METOCLOPRAMIDE 10 MG TAB PO ×3 (06:12→21:38)
[2019-06-18] MEDS: HYDROmorphONE 2 MG TAB PO ×3 (07:48→16:28)
[2019-06-18] MEDS: COLCHICINE 0.6 MG CAP PO (09:21)
[2019-06-18] MEDS: LACTOBACILLUS RHAMNOSUS CAP PO ×2 (09:21→21:32)
[2019-06-18] MEDS: APIXABAN 5 MG TABLET PO ×2 (09:21→21:32)
[2019-06-18] MEDS: morphine (ER) 30 MG TAB PO ×2 (09:21→21:32)
[2019-06-18] MEDS: SUCRALFATE (100 MG/ML) 10ML CUP PO ×4 (09:23→21:31)
[2019-06-18] MEDS: NADOLOL 40 MG TAB PO ×2 (09:23→21:40)
[2019-06-18] MEDS: RIFAXIMIN 550 MG TAB PO ×2 (09:24→21:31)
[2019-06-18] MEDS: LACTULOSE 30ML CUP PO (09:24)
[2019-06-18] MEDS: AZATHIOPRINE 50 MG TAB PO (09:24)
[2019-06-18] MEDS: SPIRONOLACTONE 25 MG TAB PO ×2 (09:28→21:38)
[2019-06-18] MEDS: LEVOFLOXACIN 500MG/D5W (PMX) 100 ML IVPB (09:29)
[2019-06-18] MEDS ORDERED: HYDROmorphONE 4 MG TAB (11:52)
[2019-06-18 13:16] LABS: ADD MAN DIFF? NO
[2019-06-18 13:17] LABS: ABNORMAL IP MESSAGE 1; BASOPHILS % 0.9 % (0.0-2.0); EOSINOPHILS # 0.3 10^3/ul (0.0-0.5); EOSINOPHILS % 6.6 % (0.0-7.0); HEMOGLOBIN 8.2 g/dl (12.0-16.0); LYMPHOCYTES # 0.5 10^3/ul (0.8-2.9); LYMPHOCYTES % 12.5 % (15.0-51.0); MEAN CORPUSCULAR HEMOGLOBIN 26.6 pg (29.0-33.0); MEAN CORPUSCULAR HGB CONC 30.4 g/dl (32.0-37.0); MEAN CORPUSCULAR VOLUME 87.7 fl (82.0-101.0); MEAN PLATELET VOLUME 10.3 fl (7.4-10.4); MONOCYTE # 0.8 10^3/ul (0.3-0.9); MONOCYTES % 17.6 % (0.0-11.0); NEUTROPHIL # 2.6 10^3/ul (1.6-7.5); NEUTROPHILS % 61.9 % (39.0-77.0); NUCLEATED RED BLOOD CELLS # 0.2 10^3/ul (0.0-0.0); NUCLEATED RED BLOOD CELLS% 4.2 /100WBC (0.0-0.0); PLATELET COUNT 416 10^3/UL (140-415); RED BLOOD COUNT 3.08 10^6/ul (4.20-5.40); RED CELL DISTRIBUTION WIDTH 29.6 % (11.5-14.5)
[2019-06-18 13:17] LABS: WHITE BLOOD COUNT 4.3 10^3/ul (4.8-10.8)
[2019-06-18 13:20] LABS: POSITIVE DIFF @See below
[2019-06-18 13:36] LABS: ALANINE AMINOTRANSFERASE 23 IU/L (13-69); ALBUMIN 2.9 g/dl (3.3-4.9); ALBUMIN/GLOBULIN RATIO 0.74; ALKALINE PHOSPHATASE 89 IU/L (42-121); ANION GAP 5 (5-13); ASPARTATE AMINO TRANSFERASE 43 IU/L (15-46); BILIRUBIN,INDIRECT 0.3 mg/dl (0-1.1); BILIRUBIN,TOTAL 0.3 mg/dl (0.2-1.3); BLOOD UREA NITROGEN 6 mg/dl (7-20); CALCIUM 8.5 mg/dl (8.4-10.2); CARBON DIOXIDE 26 mmol/L (21-31); CHLORIDE 103 mmol/L (97-110); Estimated GFR > 60 mL/min (>60); GLUCOSE 97 mg/dl (70-220); POTASSIUM 3.9 mmol/L (3.5-5.1); SODIUM 134 mmol/L (135-144); TOTAL PROTEIN 6.8 g/dl (6.1-8.1)
[2019-06-18] MEDS: FAT EMULSION 20% 250 ML IV (14:17)
[2019-06-19] MEDS: ACCU-CHEK XX ×5 (00:01→23:52)
[2019-06-19] MEDS: ONDANSETRON 4 MG INJ IV ×6 (01:15→20:25)
[2019-06-19] MEDS: HYDROmorphONE 1 MG/ML SYG IV ×2 (01:15→13:26)
[2019-06-19] MEDS: HYDROmorphONE 2 MG TAB PO ×3 (03:44→20:28)
[2019-06-19] MEDS: DIPHENHYDRAMINE 50 MG INJ IV (03:48)
[2019-06-19] MEDS: METOCLOPRAMIDE 10 MG TAB PO ×3 (05:22→22:19)
[2019-06-19] MEDS: PANTOPRAZOLE (EC) 40 MG TAB PO ×2 (05:22→17:40)
[2019-06-19] MEDS: INSULIN ASPART [NOVOLOG] 3 ML PEN SC ×5 (06:00→23:52)
[2019-06-19 06:14] LABS: ANION GAP 4 (5-13); BLOOD UREA NITROGEN 7 mg/dl (7-20); CALCIUM 8.1 mg/dl (8.4-10.2); CARBON DIOXIDE 27 mmol/L (21-31); CHLORIDE 104 mmol/L (97-110); CREATININE 0.38 mg/dl (0.44-1.00); Estimated GFR > 60 mL/min (>60); GLUCOSE 89 mg/dl (70-220); MAGNESIUM 1.7 mg/dl (1.7-2.5); PHOSPHORUS 4.2 mg/dl (2.5-4.9); POTASSIUM 3.7 mmol/L (3.5-5.1); SODIUM 135 mmol/L (135-144); TRIGLYCERIDES 45 mg/dl (0-149)
[2019-06-19] MEDS: LEVOFLOXACIN 500MG/D5W (PMX) 100 ML IVPB (09:07)
[2019-06-19] MEDS: SPIRONOLACTONE 25 MG TAB PO ×2 (09:08→20:26)
[2019-06-19] MEDS: LACTOBACILLUS RHAMNOSUS CAP PO ×2 (09:08→20:26)
[2019-06-19] MEDS: LACTULOSE 30ML CUP PO (09:08)
[2019-06-19] MEDS: COLCHICINE 0.6 MG CAP PO (09:08)
[2019-06-19] MEDS: RIFAXIMIN 550 MG TAB PO ×2 (09:08→20:26)
[2019-06-19] MEDS: APIXABAN 5 MG TABLET PO ×2 (09:10→20:26)
[2019-06-19] MEDS: morphine (ER) 30 MG TAB PO (09:10)
[2019-06-19] MEDS: SUCRALFATE (100 MG/ML) 10ML CUP PO ×4 (09:10→20:25)
[2019-06-19] MEDS: AZATHIOPRINE 50 MG TAB PO (09:10)
[2019-06-19] MEDS: NADOLOL 40 MG TAB PO ×2 (10:25→20:26)
[2019-06-19] MEDS: FAT EMULSION 20% 250 ML IV (13:26)
[2019-06-19] MEDS ORDERED: LORAZEPAM 1 MG TAB PO (14:30)
[2019-06-19] MEDS ORDERED: LORAZEPAM 0.5 MG TAB (15:44)
[2019-06-19] MEDS: LORAZEPAM 0.5 MG TAB PO ×2 (15:53→22:22)
[2019-06-19] MEDS: TPN 1,000 ML IV ×2 (18:00→21:42)
[2019-06-20] MEDS: HYDROmorphONE 2 MG TAB PO ×4 (00:28→21:37)
[2019-06-20] MEDS: ONDANSETRON 4 MG INJ IV ×6 (00:29→21:36)
[2019-06-20] MEDS: HYDROmorphONE 1 MG/ML SYG IV ×3 (01:26→14:08)
[2019-06-20] MEDS: PANTOPRAZOLE (EC) 40 MG TAB PO ×2 (05:26→17:42)
[2019-06-20] MEDS: LORAZEPAM 0.5 MG TAB PO ×3 (05:26→22:59)
[2019-06-20] MEDS: METOCLOPRAMIDE 10 MG TAB PO ×3 (05:26→21:36)
[2019-06-20] MEDS: INSULIN ASPART [NOVOLOG] 3 ML PEN SC ×3 (06:00→17:54)
[2019-06-20] MEDS: ACCU-CHEK XX ×3 (06:18→18:00)
[2019-06-20 06:55] LABS: ADD MAN DIFF? NO
[2019-06-20 07:03] LABS: ABNORMAL IP MESSAGE 1; BASOPHILS % 0.8 % (0.0-2.0); EOSINOPHILS # 0.4 10^3/ul (0.0-0.5); EOSINOPHILS % 11.4 % (0.0-7.0); HEMATOCRIT 22.2 % (37.0-47.0); LYMPHOCYTES # 0.6 10^3/ul (0.8-2.9); LYMPHOCYTES % 16.6 % (15.0-51.0); MEAN CORPUSCULAR HEMOGLOBIN 26.9 pg (29.0-33.0); MEAN CORPUSCULAR HGB CONC 30.6 g/dl (32.0-37.0); MEAN CORPUSCULAR VOLUME 87.7 fl (82.0-101.0); MEAN PLATELET VOLUME 10.6 fl (7.4-10.4); MONOCYTE # 0.8 10^3/ul (0.3-0.9); MONOCYTES % 21.8 % (0.0-11.0); NEUTROPHIL # 1.9 10^3/ul (1.6-7.5); NEUTROPHILS % 49.1 % (39.0-77.0); NUCLEATED RED BLOOD CELLS # 0.2 10^3/ul (0.0-0.0); NUCLEATED RED BLOOD CELLS% 4.4 /100WBC (0.0-0.0); PLATELET COUNT 419 10^3/UL (140-415); RED BLOOD COUNT 2.53 10^6/ul (4.20-5.40); RED CELL DISTRIBUTION WIDTH 29.3 % (11.5-14.5)
[2019-06-20 07:03] LABS: WHITE BLOOD COUNT 3.9 10^3/ul (4.8-10.8)
[2019-06-20 07:21] LABS: INR 1.36; PROTIME 16.9 Sec (11.9-14.9); PT RATIO 1.3
[2019-06-20 07:32] LABS: ALANINE AMINOTRANSFERASE 24 IU/L (13-69); ALBUMIN 2.6 g/dl (3.3-4.9); ALBUMIN/GLOBULIN RATIO 0.76; ALKALINE PHOSPHATASE 93 IU/L (42-121); ANION GAP 4 (5-13); ASPARTATE AMINO TRANSFERASE 35 IU/L (15-46); BILIRUBIN,INDIRECT 0.2 mg/dl (0-1.1); BILIRUBIN,TOTAL 0.2 mg/dl (0.2-1.3); BLOOD UREA NITROGEN 7 mg/dl (7-20); CALCIUM 8.3 mg/dl (8.4-10.2); CARBON DIOXIDE 26 mmol/L (21-31); CHLORIDE 104 mmol/L (97-110); Estimated GFR > 60 mL/min (>60); GLUCOSE 85 mg/dl (70-220); POTASSIUM 3.8 mmol/L (3.5-5.1); SODIUM 134 mmol/L (135-144)
[2019-06-20 07:39] LABS: HEMOGLOBIN 6.8 g/dl (12.0-16.0); POSITIVE DIFF @See below
[2019-06-20 08:31] LABS: MAGNESIUM 1.8 mg/dl (1.7-2.5)
[2019-06-20] MEDS: SUCRALFATE (100 MG/ML) 10ML CUP PO ×4 (09:00→21:35)
[2019-06-20] MEDS: LACTULOSE 30ML CUP PO (09:00)
[2019-06-20] MEDS: NADOLOL 40 MG TAB PO ×2 (09:00→21:45)
[2019-06-20] MEDS ORDERED: ACETAMINOPHEN 1000MG/100ML IV 100 ML IVPB (10:00)
[2019-06-20 10:15] LABS: ANISOCYTOSIS 2+ (0-0); BAND NEUTROPHILS #M 0.9 10^3/ul (0.0-0.6); BAND NEUTROPHILS % (M) 24 % (0-4); BASOPHILS % (M) 1 % (0-2); BURR CELLS 1+ (0-0); EOSINOPHILS % (M) 10 % (0-7); ERYTHROBLAST% (NRBC) (M) 5 % (0-0); GIANT THROMBO% (M) 22 % (0-0); HYPOCHROMASIA 3+ (0-0); LYMPHOCYTES #M 0.7 10^3/ul (0.8-2.9); LYMPHOCYTES % (M) 18 % (15-51); MONOCYTE #M 0.4 10^3/ul (0.3-0.9); MONOCYTES % (M) 11 % (0-11); PLATELET ESTIMATE NORMAL; POIKILOCYTOSIS 1+ (0-0); POLYCHROMASIA 3+ (0-0); REACTIVE LYMPHOCYTES% (M) 2 % (0-0); SCHISTOCYTES 1+ (0-0); SEG NEUT #M 1.4 10^3/ul (1.6-7.5); SEGMENTED NEUTROPHILS (M) % 34 % (39-77); SMUDGE%M 18 % (0-0); TARGET CELLS 1+ (0-0)
[2019-06-20 10:45] LABS: HEMATOCRIT 23.8 % (37.0-47.0); HEMOGLOBIN 7.3 g/dl (12.0-16.0)
[2019-06-20] MEDS: RIFAXIMIN 550 MG TAB PO ×2 (11:28→21:36)
[2019-06-20] MEDS: COLCHICINE 0.6 MG CAP PO (11:28)
[2019-06-20] MEDS: SPIRONOLACTONE 25 MG TAB PO ×2 (11:28→21:35)
[2019-06-20] MEDS: APIXABAN 5 MG TABLET PO ×2 (11:29→21:36)
[2019-06-20] MEDS: AZATHIOPRINE 50 MG TAB PO (11:29)
[2019-06-20] MEDS: LEVOFLOXACIN 500MG/D5W (PMX) 100 ML IVPB (11:29)
[2019-06-20] MEDS: LACTOBACILLUS RHAMNOSUS CAP PO ×2 (11:29→21:36)
[2019-06-20] MEDS: KETOROLAC 30 MG INJ IM (11:34)
[2019-06-20] MEDS: FAT EMULSION 20% 250 ML IV (17:04)
[2019-06-20] MEDS: TPN 1,000 ML IV (17:04)
[2019-06-21] MEDS: ACCU-CHEK XX ×4 (00:32→18:00)
[2019-06-21] MEDS: HYDROmorphONE 2 MG TAB PO ×3 (01:13→22:39)
[2019-06-21] MEDS: ONDANSETRON 4 MG INJ IV ×4 (01:14→12:28)
[2019-06-21] MEDS: HYDROmorphONE 1 MG/ML SYG IV ×2 (02:22→15:26)
[2019-06-21] MEDS: PANTOPRAZOLE (EC) 40 MG TAB PO ×2 (05:32→18:06)
[2019-06-21] MEDS: INSULIN ASPART [NOVOLOG] 3 ML PEN SC ×4 (06:00→18:00)
[2019-06-21] MEDS: LORAZEPAM 0.5 MG TAB PO ×3 (06:40→21:13)
[2019-06-21] MEDS: METOCLOPRAMIDE 10 MG TAB PO ×3 (06:41→21:11)
[2019-06-21] MEDS: RIFAXIMIN 550 MG TAB PO ×2 (08:36→21:13)
[2019-06-21] MEDS: LEVOFLOXACIN 500MG/D5W (PMX) 100 ML IVPB (08:36)
[2019-06-21] MEDS: APIXABAN 5 MG TABLET PO ×2 (08:36→21:11)
[2019-06-21] MEDS: SUCRALFATE (100 MG/ML) 10ML CUP PO ×4 (08:36→21:09)
[2019-06-21] MEDS: LACTULOSE 30ML CUP PO (08:36)
[2019-06-21] MEDS: LACTOBACILLUS RHAMNOSUS CAP PO ×2 (08:36→21:12)
[2019-06-21] MEDS: COLCHICINE 0.6 MG CAP PO (08:37)
[2019-06-21] MEDS: SPIRONOLACTONE 25 MG TAB PO ×2 (08:37→22:39)
[2019-06-21] MEDS: AZATHIOPRINE 50 MG TAB PO (08:37)
[2019-06-21] MEDS: NADOLOL 40 MG TAB PO ×2 (08:37→21:12)
[2019-06-21] MEDS: morphine (ER) 30 MG TAB PO ×2 (10:06→21:11)
[2019-06-21] MEDS: FAT EMULSION 20% 250 ML IV (12:28)
[2019-06-21] MEDS: TPN 1,000 ML IV (14:28)
[2019-06-21] MEDS: DULOXETINE 30 MG CAP DR PO (17:00)
[2019-06-21] MEDS ORDERED: ONDANSETRON 4 MG INJ IV (17:00)
[2019-06-22] MEDS: HYDROmorphONE 1 MG/ML SYG IV ×2 (04:21→16:36)
[2019-06-22] MEDS: INSULIN ASPART [NOVOLOG] 3 ML PEN SC ×5 (06:00→23:51)
[2019-06-22] MEDS: ACCU-CHEK XX ×5 (06:00→23:51)
[2019-06-22] MEDS: METOCLOPRAMIDE 10 MG TAB PO ×3 (06:14→22:12)
[2019-06-22] MEDS: PANTOPRAZOLE (EC) 40 MG TAB PO ×2 (06:14→16:43)
[2019-06-22] MEDS: LORAZEPAM 0.5 MG TAB PO ×3 (06:15→22:12)
[2019-06-22 07:22] LABS: ANION GAP 4 (5-13); BLOOD UREA NITROGEN 7 mg/dl (7-20); CALCIUM 8.2 mg/dl (8.4-10.2); CARBON DIOXIDE 27 mmol/L (21-31); CHLORIDE 104 mmol/L (97-110); CREATININE 0.38 mg/dl (0.44-1.00); Estimated GFR > 60 mL/min (>60); GLUCOSE 98 mg/dl (70-220); MAGNESIUM 1.6 mg/dl (1.7-2.5); PHOSPHORUS 4.1 mg/dl (2.5-4.9); POTASSIUM 3.9 mmol/L (3.5-5.1); SODIUM 135 mmol/L (135-144)
[2019-06-22] MEDS: COLCHICINE 0.6 MG CAP PO (09:41)
[2019-06-22] MEDS: AZATHIOPRINE 50 MG TAB PO (09:41)
[2019-06-22] MEDS: LACTOBACILLUS RHAMNOSUS CAP PO ×2 (09:41→20:44)
[2019-06-22] MEDS: LACTULOSE 30ML CUP PO (09:41)
[2019-06-22] MEDS: APIXABAN 5 MG TABLET PO ×2 (09:41→20:44)
[2019-06-22] MEDS: NADOLOL 40 MG TAB PO ×2 (09:43→20:44)
[2019-06-22] MEDS: SPIRONOLACTONE 25 MG TAB PO ×2 (09:43→20:43)
[2019-06-22] MEDS: DULOXETINE 30 MG CAP DR PO (09:43)
[2019-06-22] MEDS: SUCRALFATE (100 MG/ML) 10ML CUP PO ×4 (09:43→20:44)
[2019-06-22] MEDS: RIFAXIMIN 550 MG TAB PO ×2 (09:43→20:44)
[2019-06-22] MEDS: morphine (ER) 30 MG TAB PO ×2 (09:44→20:44)
[2019-06-22] MEDS: HYDROmorphONE 2 MG TAB PO ×2 (12:10→19:49)
[2019-06-22] MEDS: FAT EMULSION 20% 250 ML IV ×2 (13:00→17:44)
[2019-06-22] MEDS: MAGNESIUM SULFATE 1 GM/D5W 100 ML IVPB (14:41)
[2019-06-22] MEDS: TPN 1,000 ML IV (16:47)
[2019-06-23] MEDS: TPN 1,000 ML IV (01:47)
[2019-06-23] MEDS: HYDROmorphONE 1 MG/ML SYG IV ×2 (04:40→16:50)
[2019-06-23] MEDS: METOCLOPRAMIDE 10 MG TAB PO ×2 (05:49→15:59)
[2019-06-23] MEDS: PANTOPRAZOLE (EC) 40 MG TAB PO ×2 (05:49→17:10)
[2019-06-23] MEDS: LORAZEPAM 0.5 MG TAB PO ×2 (05:49→14:00)
[2019-06-23] MEDS: INSULIN ASPART [NOVOLOG] 3 ML PEN SC ×3 (05:50→17:11)
[2019-06-23] MEDS: ACCU-CHEK XX ×3 (05:59→18:01)
[2019-06-23] MEDS: LACTULOSE 30ML CUP PO (08:18)
[2019-06-23] MEDS: SUCRALFATE (100 MG/ML) 10ML CUP PO ×3 (08:19→17:10)
[2019-06-23] MEDS: DULOXETINE 30 MG CAP DR PO (08:19)
[2019-06-23] MEDS: AZATHIOPRINE 50 MG TAB PO (08:19)
[2019-06-23] MEDS: COLCHICINE 0.6 MG CAP PO (08:19)
[2019-06-23] MEDS: APIXABAN 5 MG TABLET PO (08:19)
[2019-06-23] MEDS: LACTOBACILLUS RHAMNOSUS CAP PO (08:19)
[2019-06-23] MEDS: RIFAXIMIN 550 MG TAB PO (08:19)
[2019-06-23] MEDS: SPIRONOLACTONE 25 MG TAB PO (08:20)
[2019-06-23] MEDS: NADOLOL 40 MG TAB PO (08:22)
[2019-06-23] MEDS: morphine (ER) 30 MG TAB PO (08:22)
[2019-06-23] MEDS: FAT EMULSION 20% 250 ML IV (13:00)
[2019-06-23] MEDS: HYDROmorphONE 2 MG TAB PO (13:22)
[2019-06-23] MEDS: DEXTROSE 10% 1,000 ML IV (13:34)
== END 2019-06-23 18:24 | disposition home or self-care (01) | DRG 377 ==
LOC: PP2 06-01 22:13 → E/R 00:42 → PP2 05:25
PROC: 06L38CZ Occlusion of Esophageal Vein with Extraluminal Device, Via Natural or Artificial Opening Endoscopic (ICD-10-PCS; principal; 2019-05-25 15:13)
PROC: 0W9G3ZZ Drainage of Peritoneal Cavity, Percutaneous Approach (ICD-10-PCS; 2019-05-25 15:13)
PROC: 30233K1 Transfusion of Nonautologous Frozen Plasma into Peripheral Vein, Percutaneous Approach (ICD-10-PCS; 2019-05-25 15:13)
PROC: 30233N1 Transfusion of Nonautologous Red Blood Cells into Peripheral Vein, Percutaneous Approach (ICD-10-PCS; 2019-05-25 15:13)
PROC: 02HV33Z Insertion of Infusion Device into Superior Vena Cava, Percutaneous Approach (ICD-10-PCS; 2019-05-25 15:13)
PROC: 4A02X4A Measurement of Cardiac Electrical Activity, Guidance, External Approach (ICD-10-PCS; 2019-05-25 15:13)
PROC: 3E0436Z Introduction of Nutritional Substance into Central Vein, Percutaneous Approach (ICD-10-PCS; 2019-05-25 15:13)
DX: K92.1 Melena (principal); I81 Portal vein thrombosis; M32.12 Pericarditis in systemic lupus erythematosus; D68.4 Acquired coagulation factor deficiency; K76.6 Portal hypertension; R18.8 Other ascites; N39.0 Urinary tract infection, site not specified; K64.8 Other hemorrhoids; I85.10 Secondary esophageal varices without bleeding; K74.60 Unspecified cirrhosis of liver; D50.9 Iron deficiency anemia, unspecified; E87.6 Hypokalemia; F32.9 Major depressive disorder, single episode, unspecified; H53.8 Other visual disturbances; H53.2 Diplopia; I80.8 Phlebitis and thrombophlebitis of other sites; I73.00 Raynaud's syndrome without gangrene; I10 Essential (primary) hypertension; K72.90 Hepatic failure, unspecified without coma; K31.89 Other diseases of stomach and duodenum; K31.84 Gastroparesis; K63.9 Disease of intestine, unspecified; K27.9 Peptic ulcer, site unspecified, unspecified as acute or chronic, without hemorrhage or perforation; K76.0 Fatty (change of) liver, not elsewhere classified; K21.9 Gastro-esophageal reflux disease without esophagitis; M06.9 Rheumatoid arthritis, unspecified; R25.1 Tremor, unspecified; R11.2 Nausea with vomiting, unspecified; Z90.81 Acquired absence of spleen; Z89.021 Acquired absence of right finger(s); Z79.01 Long term (current) use of anticoagulants
CPT/HCPCS: 36415; 36430; 36573; 70552; 74177; 76705; 78264; 80048; 80053; 80076; 81001; 81003; 82140; 82962; 83605; 83690; 83735; 84100; 84134; 84443; 84478; 84484; 84703; 85014; 85018; 85025; 85610; 85730; 86376; 86850; 86900; 86901; 86920; 87045; 87177; 87338; 93971; 95819; 99285-25

== ENCOUNTER 2019-06-26 23:08 | Emergency (ER) | payer OTHER | END 2019-06-27 04:02 | disposition home or self-care (01) | LOC: E/R 23:08 | DX: D72.819 Decreased white blood cell count, unspecified (principal); D64.9 Anemia, unspecified; R77.0 Abnormality of albumin; D47.3 Essential (hemorrhagic) thrombocythemia; R10.84 Generalized abdominal pain | CPT/HCPCS: 36415; 80053; 81003; 83690; 85025; 85610; 99283 ==

== ENCOUNTER 2019-06-28 15:24 | Emergency (ER) | payer OTHER ==
[2019-06-28] MEDS: KETOROLAC 15 MG INJ IV ×2 (16:59→20:11)
[2019-06-28] MEDS: CYCLOBENZAPRINE 10 MG TAB PO (16:59)
[2019-06-28] MEDS: morphine 4 MG/ML VIAL IV (18:44)
[2019-06-28] MEDS: SOD CHLORIDE 0.9% 1,000 ML IV (18:45)
== END 2019-06-28 20:20 | disposition home or self-care (01) ==
LOC: E/R 15:24
DX: M62.838 Other muscle spasm (principal); Z79.01 Long term (current) use of anticoagulants
CPT/HCPCS: 36415; 74176; 80053; 81003; 81025; 83690; 84703; 85025; 96361; 96374; 96375; 96376; 99285-25